=== PATIENT | male | born 1960 | race Caucasian/White ===

== ENCOUNTER → 2016-11-24 | Day surgery (SDC) | payer OTHER ==
[2016-11-18 11:04] VITALS: BMI 37.0
[~2016-11-24] VITALS: Ht 180.3 cm; Wt 120.9 kg
[~2016-11-24] MED LIST: GEMF600T3 PO; LIDOCAINE HCL 2% 2 ML VIAL (20MG/ML) ONE; LISI20TA55 PO; NAPR1TAB9 PO; POTA1TAB97 PO; PROPOFOL IV EMULSION 10 MG/ML 20 ML VIAL IV ONE
[2016-11-24 08:43] VITALS: Ht 180.3 cm; Wt 120.9 kg
--- NOTE | 2016-11-24 09:24 | Endo History and Physical ---
History & Physical Date of Service: Nov 24, 2016. Chief Complaint: Abd epigastric pain/possible varices Referring Physician: MOLLY Sheffield History of Present Illness cirrhosis Past Surgical History Hx Cardiac Surgery: No Hx Internal Defibrillator: No Hx Pacemaker: No Hx Abdominal Surgery: No Hx of Implantable Prosthesis: No Hx Post-Op Nausea and Vomiting: Yes (X 1) Hx Cancer Surgery: No Hx Thoracic Surgery: Yes (SCOPE FOR BIOPSY TO DX SARCOIDOSIS) Hx Orthopedic: Yes (L KNEE SCOPE) Hx Urinary Tract Surgery: No Family History Colon CA Social History Smoking Status: Never Smoker Hx Substance Use: No Hx Alcohol Use: No (NO ALCOHOL PAST 1 YR) Allergies Coded Allergies: Shellfish Allergy (Verified Allergy, Unknown, ANAPHYLAXIS, 11/18/16) Aspirin (Verified Adverse Reaction, Mild, EPISTAXIS, 11/18/16) Current Medications Reported Home Medications Medications Dose Route/Sig Max Daily Dose Days Date Category K-Tab (Potassium Chloride) 20 Meq Tab 10 Meq PO QAM 02/24/16 Reported Aleve (Naproxen) 220 Mg Tab 220 Mg PO BID PRN 02/04/16 Reported Lopid (Gemfibrozil) 600 Mg Tab 600 Mg PO BID 09/08/11 Reported Prinzide 20-25MG (HCTZ/Lisinopril) Tab 1 Tab PO QAM 05/04/10 Reported Vital Signs Weight (Kilograms): 120.91 Height (Feet): 5 Height (Inches): 11 Date Time Temp Pulse Resp B/P (MAP) Pulse Ox O2 Delivery O2 Flow Rate FiO2 11/24/16 08:48 37 69 18 146/84 (104) 96 Room Air Physical Exam General Appearance: WD/WN, no apparent distress Assessment and Plan EGD today
--- NOTE | 2016-11-24 09:41 | Discharge Instructions ---
Endoscopy Patient Instructions Date / Procedure(s) Performed Nov 24, 2016. EGD Allergy Information Coded Allergies: Shellfish Allergy (Verified Allergy, Unknown, ANAPHYLAXIS, 11/18/16) Aspirin (Verified Adverse Reaction, Mild, EPISTAXIS, 11/18/16) Discharge Date / Findings Nov 24, 2016. normal EGD Medication Instructions Restart Stopped Medication(s): OK to continue all home medications as above Provider Instructions Activity Restrictions - No exercising or heavy lifting for 24 hours. - Do not drink alcohol the day of the procedure. - Do not drive a car or operate machinery until the day after the procedure. - Do not make any important decisions or sign important papers in 24 hours after the procedure. Following Day: - Return to full activity which may include returning to work/school. Diet Start your diet with liquids and light foods (jello, soup, juice, toast). Then eat your usual diet if not nauseated. Treatment For Common After Affects For mild abdominal pain, bloating, or excessive gas: - Rest - Eat lightly - Lie on right side Follow-Up Information Follow-up with MOLLY Sheffield as scheduled Anesthesia Information What You Should Know You have had a procedure that required some medicine to reduce anxiety and discomfort. This treatment is called moderate sedation. After receiving the treatment, you may be sleepy, but you will be able to breathe on your own. The effects of the treatment may last for several hours. Follow these instructions along with Activity/Diet recommendations noted above: * Do NOT do anything where dizziness or clumsiness would be dangerous. * Rest quietly at home today, then you can be up and about tomorrow. * Have a responsible person stay with you the rest of today. * You may have had an I.V. today. If so, you may take the dressing off later today. Recommendations Call your doctor if: * Trouble breathing * Continuous vomiting for more than 24 hours * Temperature above 101 degrees * Severe abdominal pain or bloating * Pain not relieved by pain medicine ordered * There is increased drainage or redness from any incision * A large amount of rectal bleeding greater than 2-3 tablespoons. (If you had a polyp/s removed or have hemorrhoids, a small amount of blood - from the rectum is to be expected.) * You have any unanswered questions or concerns. IN THE EVENT OF A SERIOUS EMERGENCY, GO TO THE NEAREST EMERGENCY ROOM Your discharge instructions were prepared by provider Kathe Delgado. Patient Instructions Signature [address] Patient (or Guardian) Signature/Date: I have read and understand the instructions given to me by my caregivers. Caregiver/RN/Doctor Signature/Date: The above-named patient and/or guardian has received patient instructions on this date. + Original Patient Signature Page (only) stays with chart. Please make copy for patient.
--- NOTE | 2016-11-24 09:41 | GI REPORT ---
Procedure Date: 11/24/2016 9:21 AM Procedure: Upper GI endoscopy Indications: Generalized abdominal pain, Cirrhosis rule out esophageal varices Medicines: Propofol per Anesthesia Complications: No immediate complications. Estimated blood loss: None. Estimated Blood Loss: Estimated blood loss: none. Procedure: Pre-Anesthesia Assessment: - Prior to the procedure, a History and Physical was performed, and patient medications, allergies and sensitivities were reviewed. The patient's tolerance of previous anesthesia was reviewed. - The risks and benefits of the procedure and the sedation options and risks were discussed with the patient. All questions were answered and informed consent was obtained. - Patient identification and proposed procedure were verified prior to the procedure by the physician and the nurse. The procedure was verified in the pre-procedure area in the procedure room. - Mental Status Examination: alert and oriented. Airway Examination: normal oropharyngeal airway and neck mobility. Respiratory Examination: clear to auscultation. CV Examination: normal. Abdominal Examination: bowel sounds present, abdomen soft and non-tender, no masses or organomegaly noted. - ASA Grade Assessment: III - A patient with severe systemic disease. After obtaining informed consent, the endoscope was passed under direct vision. Throughout the procedure, the patient's blood pressure, pulse, and oxygen saturations were monitored continuously. The scope was introduced through the mouth, and advanced to the second part of duodenum. The upper GI endoscopy was accomplished without difficulty. The patient tolerated the procedure well. Findings: The esophagus was normal. The stomach was normal. The examined duodenum was normal. Impression: - Normal esophagus. - Normal stomach. - Normal examined duodenum. - No specimens collected. Recommendation: - Return to primary care physician as previously scheduled. - Discharge patient to home. Kathe Delgado D.O. Kathe Delgado, 11/24/2016 9:40:37 AM This report has been signed electronically. Note Initiated On: 11/24/2016 9:21 AM I attest to the content of the Intraoperative Record and orders documented therein, exceptions below
--- NOTE | 2016-11-24 10:12 | Anesthesiology Progress Note ---
Anesthesia Post Op Note Date & Time Nov 24, 2016 at 10:12 Vital Signs Pain Intensity: 0 Vital Signs Past 12 Hours Date Time Temp Pulse Resp B/P (MAP) Pulse Ox O2 Delivery O2 Flow Rate FiO2 11/24/16 10:01 78 18 121/85 (97) 97 Room Air 11/24/16 09:46 69 18 137/69 (91) 99 Room Air 11/24/16 08:48 37 69 18 146/84 (104) 96 Room Air Notes Mental Status: alert / awake / arousable, participated in evaluation Pt Amnestic to Procedure: Yes Nausea / Vomiting: adequately controlled Pain: adequately controlled Airway Patency, RR, SpO2: stable & adequate BP & HR: stable & adequate Hydration State: stable & adequate Anesthetic Complications: no major complications apparent
[2016-11-24 10:17] VITALS: BP 122/70; PULSE 71; O2SAT 97
== END | disposition home or self-care (01) ==
LOC: C.GI 08:25
PROVIDERS: ATTEND Internal Medicine
DX: R10.84 Generalized abdominal pain (principal); K74.60 Unspecified cirrhosis of liver; Z80.0 Family history of malignant neoplasm of digestive organs; Z79.899 Other long term (current) drug therapy

== ENCOUNTER 2017-06-28 04:22 | Emergency (ER) | payer OTHER ==
[~2017-06-28] VITALS: Ht 180.3 cm; Wt 120.6 kg
[~2017-06-28 04:22] MED LIST changes: -LIDOCAINE HCL 2% 2 ML VIAL (20MG/ML) ONE; -PROPOFOL IV EMULSION 10 MG/ML 20 ML VIAL IV ONE
[2017-06-28 04:28] VITALS: TEMP 36.7; Ht 180.3 cm; Wt 120.6 kg
[2017-06-28] MEDS ORDERED: LIDOCAINE HCL 2% VISC SOLN 20 ML UDC MT STA (04:40)
[2017-06-28] MEDS ORDERED: ALBUTEROL HFA 8 GM INHALER INH STA (04:44)
[2017-06-28] MEDS ORDERED: ALBUT/IPRATROP 3MG/0.5MG NEB 3 ML VIAL INH STA (04:44)
[2017-06-28] MEDS ORDERED: DEXAMETHASONE **PF** INJ 10 MG/ML VIAL PO ONE (04:45)
[2017-06-28] MEDS ORDERED: [UNRECOGNIZED DRUG - CODE] PO (05:02)
[2017-06-28] MEDS ORDERED: THROLOZ PO (05:02)
[2017-06-28 05:13] LABS: INFLUENZA B ANTIGEN Neg for Influ B (NEG)
--- NOTE | 2017-06-28 05:56 | EMERGENCY ROOM VISIT NOTE ---
History First contact with patient: 04:31 Chief Complaint: COUGH Stated Complaint: COUGH,SINUS Nursing Triage Summary: Patient reports that he has had cough since tuesday, lost his voice and has been feeling achy. Patient notes a sore throat. Patient has been taking OTC medications with no relief. Around someone with positive flu diagnosis. History of Present Illness The patient is a 57 year old male who presents to the Emergency Room with complaints of cough, congestion, sore throat, laryngitis for the past week. Patient denies chest pain, dyspnea, fever, productive cough, abdominal pain, neck stiffness, earache, sinus pain or congestion. He is tolerating p.o. fluids and food. Review of Systems An 10 system review of systems was completed with positives and pertinent negatives listed in the HPI. Past Medical/Surgical History Medical Problems: (1) Hypertension Family History Diabetes mellitus FHx: cancer Hypertension Social History Smoking Status: Never Smoker Alcohol Use: occasionally Occupation Status: employed Current/Historical Medications Scheduled Gemfibrozil (Lopid), 600 MG PO BID Lisinopril/Hctz (Prinzide 20-25MG), 1 TAB PO QAM Potassium Chloride (K-Tab), 10 MEQ PO QAM Scheduled PRN Naproxen (Aleve), 220 MG PO BID PRN for Pain [id number] W/ APAP (Robitussin Severe Mul... 9-91-192-325 mg/10Ml), 1 DOSE PO DIRECTED PRN for COUGH/COLD Throat Lozenges (Cough Drops Menthol), 1 JOSE DE JESUS PO DIRECTED PRN for Cough Physical Exam Vital Signs Date Time Temp Pulse Resp B/P (MAP) Pulse Ox O2 Delivery O2 Flow Rate FiO2 06/28/17 05:22 76 20 135/86 98 06/28/17 04:28 36.7 82 18 179/101 96 Room Air Physical Exam VITALS: Vitals are noted on the nurse's note and reviewed by myself. Vital signs hypertensive. GENERAL: Pleasant male with a hoarse voice, in no acute distress, nondiaphoretic , well-developed well-nourished. SKIN: The skin was without rashes, erythema, edema, or bruising. There is no tenting of the skin. Capillary reflex less than 2 seconds. HEAD: Normocephalic atraumatic. EARS: External auditory canals clear, tympanic membranes pearly palomares without erythema or effusion bilaterally. EYES: Pupils equal round and reactive to light and accommodation. Conjunctivae without injection, sclerae without icterus. Extraocular movements intact. NOSE: Patent, turbinates without inflammation or discharge. No sinus tenderness. MOUTH: Mucous membranes moist. Pharynx without erythema or exudate. Uvula midline. Airway patent. Tongue does not deviate. NECK: Supple without nuchal rigidity. No lymphadenopathy. No thyromegaly. Cervical spine is nontender. No JVD. HEART: Regular rate and rhythm without murmurs gallops or rubs. LUNGS: Mild diffuse end expiratory wheezes, without rales or rhonchi. No dullness to percussion. No retractions or accessory muscle use. ABDOMEN: Positive bowel sounds x 4. Normal tympanic percussion. Soft, nontender, without masses or organomegaly. Escalante sign negative. No guarding or rebound tenderness. MUSCULOSKELETAL: No muscle atrophy, erythema, or edema noted. NEURO: Patient was alert and oriented to person place and time. Normal sensation to light and sharp touch.No focal neurological deficits. Medical Decision & Procedures Laboratory Results Test 06/28/17 04:30 Influenza Type A Antigen Neg for Influ A (NEG) Influenza Type B Antigen Neg for Influ B (NEG) Medications Administered Medications (Trade) Dose Ordered Sig/Alba Route Start Time Stop Time Status Last Admin Dose Admin Dexamethasone Sodium Phosphate (Dexamethasone Inj Pf) 10 mg NOW ONCE PO 06/28/17 04:45 06/28/17 04:46 DC 06/28/17 05:06 10 MG Lidocaine HCl (Viscous Lidocaine 2% Soln) 10 ml NOW STAT MT 06/28/17 04:40 06/28/17 04:42 DC 06/28/17 05:05 10 ML Albuterol/ Ipratropium (Duoneb) 3 ml NOW STAT INH 06/28/17 04:44 06/28/17 04:45 DC 06/28/17 05:05 3 ML Albuterol (Ventolin Hfa Inhaler) 2 puffs ONE STAT INH 06/28/17 04:44 06/28/17 04:45 DC 06/28/17 05:05 2 PUFFS ED Course Prior records/ancillary studies reviewed. Triage Nursing notes reviewed. The patient's history was concerning for a cough, laryngitis and sore throat. Differential diagnosis: Etiologies such as viral syndrome, tonsillitis, streptococcal pharyngitis, mononucleosis, peritonsillar abscess, retropharyngeal abscess, otitis, pneumonia , influenza, as well as others were entertained. ER treatment provided: Nebulizer, viscous lidocaine, Decadron On reassessment the patient felt better. Diagnostics interpreted by me: The labs revealed negative strep test and flu Imaging studies: Chest x-ray with no acute consolidation, pneumothorax or free air per my interpretation This appears to be consistent with bronchitis with laryngitis. Patient's been sick for a week. I did opt to put him on steroids and Zithromax.. No obvious signs of pneumonia on x-ray. He felt much better after being medicated as above. He is not hypoxic. He was advised to rest, stay well hydrated and take medications as directed. He was advised to follow-up family can a few days here in the ER sooner for high fevers, lethargy, difficulty breathing, worsening sign or symptoms or as needed. He was advised to monitor his blood pressure. By the evaluation outlined above emergent etiologies such as peritonsillar abscess, retropharyngeal abscess, otitis, pneumonia, meningitis, urinary tract infection, sepsis, bacteremia, as well as others were deemed relatively unlikely. The pt informed about the findings as listed above. All questions were answered and pleased with the treatment. Return instructions were outlined and the patient was discharged in stable condition. Outpatient prescription management: Prednisone, Zithromax Referral: The patient was referred back to their primary care physician for follow-up in 2 to 3 days for a recheck of the current condition. Case reviewed with my attending Medical Decision as above Medication Reconcilliation Current Medication List: was personally reviewed by me Blood Pressure Screening Patient's blood pressure: Elevated blood pressure Blood pressure disposition: Referred to PCP Impression Primary Impression: Acute bronchitis Additional Impression: Laryngitis Departure Information Dispostion Home / Self-Care Condition GOOD Referrals Pk Loya M.D. (PCP) Patient Instructions My [facility] Additional Instructions Albuterol Inhaler: Take 2 puffs four times daily for five days, then as needed. Prednisone 50mg: Once daily until the prescription is finished. It is best to take this earlier in the day as some patients note occasional difficulty falling asleep when taken in the late evening. Azithromycin(Zithromax) 250mg: Take one a day for 4 additional days. All antibiotics can cause diarrhea. If this occurs and you feel worse or it does not resolve in 1-2 days follow up with your doctor or return to the Emergency Department as this could be signs of serious underlying problems. Any medication can cause an allergic reaction, stop the pills immediately and return to the ER for rash, hives, breathing difficulties, or swelling. Acetaminophen(Tylenol) may be used for fever or pain. Use 1000mg every six hours as needed. Avoid using more than 3000mg in a 24 hour period. (AND/OR) Ibuprofen(Motrin, Advil) may be used for fever or pain. Use 600mg every six hours as needed. Take with food. Avoid using more than 2400mg in a 24 hour period. Do not use 2400mg per day for more than three consecutive days without physician direction. Prolonged inappropriate use can lead to stomach upset or ulcers. Tamiflu 75 m tablet twice a day for 5 days.Any medication can cause an allergic reaction, stop the pills immediately and return to the ER for rash, hives, breathing difficulties, or swelling. Afrin nasal spray: 2-3 sprays to each nostril twice daily as needed for congestion. Do not use for more than 3-4 days because it can lead to worsening rebound congestion. Pseudoephedrine(Sudaphed): 30-60mg every 6 hours as needed for nasal congestion. Do not take this with other stimulant products or supplements. Rest and drink plenty of fluids. Controlling your fever with Tylenol and Ibuprofen as above will make you feel better. Wash your hands after nose blowing, sneezing, or coughing. Most germs are spread through contact, therefore improper hygiene may result in your close contacts and loved ones becoming ill just like you. Continue current medications. Return to the ER for severe headache, neck stiffness, chest pain, difficulty breathing, fevers, vomiting, worsening of your condition, or as needed. Follow up with your primary physician this week for a recheck of your current condition. Problem Qualifiers Primary Impression: Acute bronchitis Bronchitis organism: unspecified organism Qualified Codes: J20.9 - Acute bronchitis, unspecified
[2017-06-28] MEDS ORDERED: AZITHROMYCIN 250 MG TAB PO STA (06:00)
[2017-06-28] MEDS ORDERED: AZIT250T PO (06:02)
[2017-06-28] MEDS ORDERED: PRED50TA PO (06:02)
[2017-06-28 06:07] VITALS: BP 134/92; PULSE 76; O2SAT 95
--- NOTE | 2017-06-28 07:32 | DIAGNOSTIC IMAGING REPORT ---
CHEST 2 VIEWS ROUTINE CLINICAL HISTORY: cough/fever cough COMPARISON STUDY: No previous studies for comparison. FINDINGS: The bones soft tissues and hemidiaphragms are normal. The cardiomediastinal silhouette is normal. The lungs are clear. The pulmonary vasculature is normal. IMPRESSION: Negative chest. The above report was generated using voice recognition software. It may contain grammatical, syntax or spelling errors. Electronically signed by: Jonathan Barrera M.D. 06/28/2017 7:31 AM Dictated Date/Time: 06/28/2017 7:20 AM
== END 2017-06-28 06:07 | disposition home or self-care (01) ==
LOC: C.EDB 04:24 → C.EDA 06:07
DX: J20.9 Acute bronchitis, unspecified (principal); J04.0 Acute laryngitis

== ENCOUNTER 2019-06-28 08:53 | Inpatient (IN) ==
[2019-06-28] MEDS ORDERED: dilTIAZem HCl 5 MG/ML 5 ML VIAL IV STA (09:18)
[2019-06-28] MEDS ORDERED: dilTIAZem HCL 125 MG in DEXTROSE 5% 100 ML IV STA (09:18)
[2019-06-28] MEDS ORDERED: SODIUM CHLORIDE 0.9% 1000ML 500 ML IV ONE (09:18)
[2019-06-28 09:29] LABS: Basophils # (auto) 0.05 K/uL (0-0.2); Basophils % (auto) 1.2 %; Eosinophils # (auto) 0.07 K/uL (0-0.5); Eosinophils % (auto) 1.7 %; Hematocrit (blood only) 43.6 % (42-52); Hemoglobin 16.3 g/dL (14.0-18.0); Immature Granulocytes # (auto) 0.01 K/uL (0.00-0.02); Immature Granulocytes % (auto) 0.2 %; Lymphocytes # (auto) 0.75 K/uL (1.2-3.4); Lymphocytes % (auto) 18.6 %; Mean Corpuscular Hemoglobin 30.6 pg (25-34); Mean Corpuscular Hgb Conc 37.4 g/dL (32-36); Mean Platelet Volume 9.7 fL (7.4-10.4); Monocytes # (auto) 0.41 K/uL (0.11-0.59); Monocytes % (auto) 10.2 %; Neutrophils # (auto) 2.74 K/uL (1.4-6.5); Neutrophils % (auto) 68.1 %; Platelet Count 122 K/uL (130-400); RDW Coefficient of Variation 13.5 % (11.5-14.5); RDW Standard Deviation 40.1 fL (36.4-46.3); Red Blood Count 5.32 M/uL (4.7-6.1); White Blood Count 4.03 K/uL (4.8-10.8)
[2019-06-28 09:41] LABS: Partial Thromboplastin Ratio 0.9; Partial Thromboplastin Time 24.2 Seconds (21.0-31.0); Prothrombin Time 10.4 Seconds (9.0-12.0)
[2019-06-28 09:44] LABS: Albumin Level 4.1 gm/dl (3.4-5.0); BUN Creatinine Ratio 12.5 (10-20); Calcium 9.6 mg/dl (8.5-10.1); Creatinine Clr Calc Pharmacy 95.9 ml/min; Est GFR (African American) 84.4; Est GFR (Non-African American) 72.8; Magnesium 2.1 mg/dl (1.8-2.4); Potassium 3.6 mmol/L (3.5-5.1)
[2019-06-28 09:55] LABS: Bilirubin,Total 0.7 mg/dl (0.2-1); Globulin 4.1 gm/dl (2.5-4.0); Thyroid Stimulating Hormone 2.89 uIu/ml (0.300-4.500); Total Protein 8.2 gm/dl (6.4-8.2); Troponin I 0.017 ng/ml (0-0.045)
--- NOTE | 2019-06-28 09:59 | XRay Report ---
XR chest 1V portable CLINICAL HISTORY: 59 years-old Male presenting with SOB. TECHNIQUE: Portable upright AP view of the chest was obtained. COMPARISON: 04/22/2018. FINDINGS: Atherosclerosis of the aortic arch. Cardiac silhouette borderline enlarged. Mild pulmonary vascular p rominence. No focal opacity. No large effusion or pneumothorax. Degenerative changes of the thoracic spine. IMPRESSION: 1. Borderline cardiomegaly and mild volume overload suggested. No other convincing evidence of acute cardiopulmonary disease. ACT 112: Negative or not required by law. Electronically signed by: Pa Mckoy M.D. 06/28/2019 9:57 AM
--- NOTE | 2019-06-28 12:03 | History & Physical Report ---
Date of Service June 28, 2019 Assessment & Plan (1) Precordial chest pain: (2) New onset atrial fibrillation: This is a 59-year-old male who has significant PMH of T2DM, HTN, HLD, cirrhosis, history of alcohol abuse, essential tremor, migraine, PTSD, HANNA on CPAP who presents to ED secondary to chest pain, shortness of breath, palpitations and diaphoresis proximally 45 minutes prior to arrival. In ED patient was found to be atrial fibrillation with rapid ventricular rate. He otherwise remained hemodynamically stable. He received IV diltiazem bolus and initiated on diltiazem drip which improved heart rates. During my evaluation he was going in and out of atrial fibrillation. Lab work notable for thrombocytopenia with platelet count 122, K3.6, BUN 14, creatinine 1.11, glucose 238, mag 2.1, troponin 0.017, TSH WNL. Chest x-ray revealed cardiomegaly with mild volume overload. [id number] 2; Hasbled 2 New onset atrial fibrillation Pt hx has me concerned for underlying CAD given exertional CP and SOB sx Continue IV diltiazem gtt Feel pt is poor candidate for IV heparin or systemic anticoagulation at this time secondary to patient history of severe epistaxis with ASA and ibuprofen, hx of cirrhosis, PLT 122 but will defer to cardiology He did have recent EGD which showed portal HTN gastropathy w/o esophageal varices Obtain echocardiogram Trend cardiac enzymes (3) Diabetes: A1c 6.1 06/12/2019 Hold metformin BSG on arrival to 238 Lantus/NovoLog per protocol (4) Cirrhosis of liver: Follows [facility] Compensated LFTs WNL No edema or hepatic encephalopathy Continue alcohol cessation recommend weight loss (5) Thrombocytopenia: Platelet count 122 No current signs of active bleeding Known history of cirrhosis (6) Hypertension: Per patient blood pressure uncontrolled in outpatient setting. Currently on HCTZ, losartan and propranolol (also for essential tremor) Monitor closely, titrate losartan if needed (7) Sleep apnea: CPAP at bedtime (8) Hyperlipidemia: Not on Statin therapy Total cholesterol 144, HDL 27, LDL 87, triglyceride 213, done on 06/12/2019 Recommend adding fish oil at discharge (9) Essential tremor: continue propranolol (10) History of ETOH abuse: Pt denies ETOH in 4-5 years however friend at bedside is concerned this may be inaccurate and he may still be drinking place on AWSS protocol prn (11) DVT prophylaxis: SCD Disposition: admit to PCU Follow up: PCP Dr. Loya upon discharge along with appropriate cardiology follow up Pt was seen and examined in collaboration with Dr. Telles, please see addendum History of Present Illness Chief Complaint: Chest pain, shortness breath, palpitations, diaphoresis 45 minutes prior to arrival. Primary Care Provider: Pk Loya MD This is a 59-year-old male who has significant PMH of T2DM, HTN, HLD, cirrhosis, history of alcohol abuse, essential tremor, migraine, PTSD, HANNA on CPAP who presents to ED secondary to chest pain, shortness of breath, palpitations and diaphoresis proximally 45 minutes prior to arrival. Patient works for [employer] and was working on campus. He developed acute onset substernal chest pain, described as dull ache, radiated to right chest wall, associated diaphoresis, shortness of breath, palpitations "feeling like my heart is beating on my chest," and dizziness. He states chest pain lasted approximately 5 minutes before relieving. Chest pain would come and go with improvement via rest. Exertion made symptoms worse. He states he has had similar symptoms off and on for many years. "I have seen many doctors who told me there was nothing wrong." He elicits he gets significantly short of breath with minimal exertion as well as exertional chest pain. His work is fairly l [employer] and states he gets exertional symptoms daily. He admits approximately 3 to 4 months ago at [place] [facility] he had a stress test and only completed 40% of it due to being extremely SOB, but was told his heart was fine. SOB sx could not be explained. He dose follow pulmonary at [place] on yearly basis due to hx of sarcoidosis. He denies any recent illness, f/c/s, syncope, n/v/d, abdominal pain, change in bowel or urinary habits. Denies hx of GI or brain bleed; however does have hx of severe epistaxis with ASA, ibuprofen and even sneezing. He denies prior hx of CAD or afib. He does follow [facility] due to known hx of cirrhosis secondary to hepatic steatosis and alcohol abuse. He admits to being absent from alcohol for 4 to 5 years. However, friend who is at bedside stop me outside of room and states he he is not sure how accurate this was as he heard he had a drink 5 days ago. In ED patient was found to be atrial fibrillation with rapid ventricular rate. He otherwise remained hemodynamically stable. He received IV diltiazem bolus and initiated on diltiazem drip which improved heart rates. During my evaluation he was going in and out of atrial fibrillation. Lab work notable for thrombocytopenia with platelet count 122, K3.6, BUN 14, creatinine 1.11, glucose 238, mag 2.1, troponin 0.017, TSH WNL. Chest x-ray revealed cardiomegaly with mild volume overload. Allergies Allergy/AdvReac Type Severity Reaction Status Date / Time Iodinated Contrast Media Allergy Intermediate Hives Unverified 06/28/19 12:42 shellfish derived AdvReac Severe "SEVERE Verified 06/28/19 12:42 VOMITING" acetaminophen [From Tylenol] AdvReac Intermediate nose bleeds Unverified 06/28/19 10:43 ibuprofen AdvReac Intermediate nose bleeds Unverified 06/28/19 10:43 aspirin AdvReac Mild EPISTAXIS Verified 06/28/19 10:37 Home Medications Home Medications Medication Instructions Recorded Confirmed Type potassium chloride [K-Tab] 20 meq PO QAM 04/22/18 06/28/19 History fluoxetine 20 mg PO HS 02/01/19 06/28/19 History metformin 500 mg PO BID 02/01/19 06/28/19 History cholecalciferol (vitamin D3) 1,000 unit PO QAM 06/28/19 06/28/19 History [Vitamin D3] hydrochlorothiazide 25 mg PO QAM 06/28/19 06/28/19 History losartan 50 mg PO QAM 06/28/19 06/28/19 History multivitamin 1 tab PO HS 06/28/19 06/28/19 History propranolol 20 mg PO BID 06/28/19 06/28/19 History Past Med/Surg History Medical History (Updated 06/28/19 @ 12:41 by Yen Covington PA-C) Anxiety Cirrhosis of liver ALCOHOLIC PER PT Depression Diabetes ORAL MEDS Essential tremor History of ETOH abuse Hyperlipidemia Hypertension Migraine HX-F/U NEUROLOGIST [place] Post traumatic stress disorder Sleep apnea MILD-CPAP HS Surgical History (Updated 06/28/19 @ 12:15 by Yen Covington PA-C) History of colonoscopy History of esophagogastroduodenoscopy (EGD) 02/06/2019 revealed mild portal hypertensive gastropathy, evidence of varices History of ethmoidectomy Family History Mother Family history of diabetes mellitus Father , in 2007 Family hx of colon cancer Social History (Updated 06/28/19 @ 12:17 by Yen Covington PA-C) Preferred Language: Tajik Communication Ability: Effective 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 Beliefs That Will Affect Care: None Current Living Situation: Alone Other Information That Helps Us Care for You: No Feels Safe at Home: Yes Safety Concerns: Feels Safe At This Time Smoking Status: Never smoker Do You Dip or Chew Tobacco: No ; Second Hand Exposure: No ; Tobacco Cessation Education Requested by Patient: No Hx Alcohol Use: Yes Alcohol type: hard liquor Alcohol Intake Frequency Comment: States abstinent for 4-5 years Hx Substance Use: No Review of Systems Review of Systems: All systems reviewed & are unremarkable except as noted in HPI & below Physical Exam Physical Exam: Constitutional: WD/WN, Morbidly obese M, vitals as above, NAD, sitting up in bed, pleasant, conversing easily Head: Normocephalic, Atraumatic, + erythematous facial flushing Eyes: PERRL, conjunctivae normal, anicteric sclerae ENMT: external ear and nose normal, oropharynx normal Neck: trachea midline, no thyromegaly normal visual inspection Respiratory: normal respiratory effort, lungs clear to auscultation, no wheeze, rales, rhonchi. Normal insp/exp effort, no accessory muscle use Cardiovascular: IRR/IRR, no murmur, no edema Vessels: no JVD or carotid bruit Chest: normal inspection of chest Abdomen: obese abd, normal bowel sounds, soft, mild tenderness to palpation to RUQ, +hepatomegaly Musculoskeletal: no cyanosis or clubbing, extremities motor strength 5/5 Skin: no rashes, warm and dry normal turgor Neurologic: PERRL, EOMI, accommodation nl, no face palsy, no dysarthria CN's II-XI intact bilaterally and moves all extremities Psychiatric: A+Ox3, euthymic affect Lymphatic: no cervical or axillary lymphadenopathy : deferred Results & Data Vital Signs (Past 12 Hours) Vital Signs Temp Pulse Resp BP Pulse Ox 06/28/19 11:00 119 H 16 127/100 97 06/28/19 10:45 112 H 14 141/89 H 95 06/28/19 10:30 101 H 17 138/100 97 06/28/19 10:15 91 H 21 139/105 H 96 06/28/19 10:07 96 06/28/19 10:00 101 H 16 153/93 H 06/28/19 09:49 78 17 174/92 H 06/28/19 09:41 83 18 144/97 H 06/28/19 09:37 100 H 20 143/100 H 06/28/19 09:31 141 H 23 138/98 06/28/19 09:30 123 H 18 06/28/19 09:00 36.5 C 123 H 24 114/87 99 Laboratory Results Short CBC 06/28/19 Range/Units 09:10 WBC 4.03 L (4.8-10.8) K/uL Hgb 16.3 (14.0-18.0) g/dL Hct 43.6 (42-52) % Plt Count 122 L (130-400) K/uL BMP 06/28/19 09:10 Sodium 137 Potassium 3.6 Chloride 105 Carbon Dioxide 26 BUN 14 Creatinine 1.11 Glucose 238 H Calcium 9.6 Cardiac Enzymes 06/28/19 Range/Units 09:10 Troponin I 0.017 (0-0.045) ng/ml Liver Function 06/28/19 Range/Units 09:10 Total Bilirubin 0.7 (0.2-1) mg/dl AST 32 (15-37) U/L ALT 55 (12-78) U/L Alkaline Phosphatase 161 H (45-117) U/L Albumin 4.1 (3.4-5.0) gm/dl Diagnostic Findings CXR: IMPRESSION: 1. Borderline cardiomegaly and mild volume overload suggested. No other convincing evidence of acute cardiopulmonary disease. Medications Administered Discontinued Medications Diltiazem HCl (Cardizem) 15 mg IV NOW STA Stop: 06/28/19 09:19 Last Admin: 06/28/19 09:33 Dose: 15 mg Documented by: [id number] Cosigned by: [id number] Sodium Chloride (Nss 1000ml) 500 mls @ 999 mls/hr IV .Q31M ONE Stop: 06/28/19 09:48 Last Infusion: 06/28/19 10:04 Dose: 0 mls/hr Documented by: [id number] Admin: 06/28/19 09:33 Dose: 999 mls/hr Documented by: [id number] Diltiazem HCl 125 mg/ Dextrose 125 mls @ 0 mls/hr IV .Q0M STA; Protocol Stop: 06/28/19 09:19 Last Titration: 06/28/19 10:54 Dose: 5 mg/hr, 5 mls/hr Documented by: [id number] Cosigned by: [id number] Admin: 06/28/19 09:32 Dose: 5 mg/hr, 5 mls/hr Documented by: [id number] Cosigned by: [id number] ECG Rate (beats per minute): 121 Rhythm: atrial fibrillation Code Status & VTE Plan Code Status Full Code VTE Prophylaxis Plan VTE Prophylaxis will be ordered: No Reason for no VTE drug order: Contraindicated Supervising Physician Co-Signing Physician Notes I saw this patient with the physician assistant editor, I participated in the history, physical, review of systems, and physical exam. I reviewed the medications with the patient and the physician assistant editor and helped reconcile the medications. I helped take a detailed family and social history as well. I formulated the assessment and plan personally with the physician assistant editor and went over it with the patient. Physical Exam Gen-AAO x 3, NAD, Afebrile, Obese Head-NCAT, EOMI, PERRLA, Anicteric Sclera, No Posterior Pharyngeal Erythema Neck-Supple, No JVD, No Thyromegaly, No Masses, No LAD, No Bruits Lungs-Clear to Auscultation Bilaterally, No Rales, No Rhonchi, No Wheezing, No Crepitus Chest-Irreg/Irreg, No S4, +S1, +S2, No S3, No Murmurs, No Rubs, No Gallops, + Ectopy Abdomen-Soft, Bowel Sounds Present, Non Tender, Non Distended, No Hepatomegaly, No Splenomegaly, No Palpable Masses, No Rebound, No Rigidity, No Guarding Musculoskeletal-Full Range of Motion Bilaterally, No CVAT Extremities-No Cyanosis, No Clubbing, No Edema Nuero-Cranial Nerves II-XII grossly intact, Motor WNL, DTRs WNL, Strength WNL, Non Focal Psych-Normal Mood
[2019-06-28] MEDS ORDERED: ACETAMINOPHEN 325 MG TAB PO PRN (12:32)
[2019-06-28] MEDS ORDERED: DEXTROSE 50% 50 ML SYRINGE IV PRN (12:32)
[2019-06-28] MEDS ORDERED: dilTIAZem HCL 125 MG in DEXTROSE 5% 100 ML IV SCH (12:32)
[2019-06-28] MEDS ORDERED: GLUCOSE 40% GEL 15 GM TUBE PO PRN (12:32)
[2019-06-28] MEDS ORDERED: CARBOHYDRATES FOR HYPOGLYCEMIA PO PRN (12:32)
[2019-06-28] MEDS ORDERED: POLYETHYLENE (MIRALAX) 17 GM PACK PO PRN (12:32)
[2019-06-28] MEDS ORDERED: MAGNESIUM HYDROXIDE SUSP 30 ML UDC PO PRN (12:32)
[2019-06-28] MEDS ORDERED: ONDANSETRON INJ 2 MG/ML 2 ML VIAL IV PRN (12:32)
[2019-06-28] MEDS ORDERED: ALUMINUM/MAGNESIUM SUSP 30 ML UDC PO PRN (12:32)
[2019-06-28] MEDS ORDERED: GLUCAGON FOR INJ 1 MG VIAL SQ PRN (12:32)
[2019-06-28] MEDS ORDERED: GLUCOSE 10 TABS/TUBE PO PRN (12:32)
[2019-06-28] MEDS ORDERED: LORazepam 1 MG TAB PO PRN (12:44)
[2019-06-28] MEDS ORDERED: POTASSIUM CHLORIDE 20 MEQ TABCR PO ONE (13:00)
--- NOTE | 2019-06-28 13:25 | Emergency Department Note ---
Entered by Lexii Gardner acting as a scribe for Jose Horta MD History of Present Illness General Chief complaint: Chest Pain Stated complaint: CHEST PAIN, HIGH BP Time Seen by Provider: 06/28/19 09:12 Source: patient History of Present Illness Onset (ago): hour(s) (0700 this morning) Location: chest Radiation: non-radiation Severity: similar to prior episodes Pain Consistency: + other (sudden) Maximum Pain Intensity: 5 Quality: + other (chest pain) Associated symptoms: + chest pain, + diaphoresis and + shortness of breath; no fever/chills and no syncope Treatments prior to arrival: none The patient is a 59 year old male presenting to the Emergency Department complaining of sudden chest pain starting at 0700 this morning. 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 He states that he then became diaphoretic and is still diaphoretic. He explains that his chest pain is no longer as pronounced as it was earlier this morning but that he is now short of breath. 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 He adds that he has been taking Losartan but started Propranolol about 2 month ago. The patient reports that since staring Propranolol he has been experiencing episodes of diaphoresis. He states that he has experienced these symptoms before. He explains that he has had a stress test in the past. He notes that he follows with Dr. Brianna Jett PCP. He adds that he took no medications for his symptoms PATIENT REGISTRATION SPECIALIST. The patient denies syncope, fevers, chills and history of AL. Home Medications Home Medications Medication Instructions Recorded Confirmed Type potassium chloride [K-Tab] 20 meq PO QAM 04/22/18 06/28/19 History fluoxetine 20 mg PO HS 02/01/19 06/28/19 History metformin 500 mg PO BID 02/01/19 06/28/19 History cholecalciferol (vitamin D3) 1,000 unit PO QAM 06/28/19 06/28/19 History [Vitamin D3] hydrochlorothiazide 25 mg PO QAM 06/28/19 06/28/19 History losartan 50 mg PO QAM 06/28/19 06/28/19 History multivitamin 1 tab PO 02/13/20 02/13/20 History propranolol 20 mg PO BID 06/28/19 06/28/19 History Allergies Allergy/AdvReac Type Severity Reaction Status Date / Time Iodinated Contrast Media Allergy Intermediate Hives Unverified 06/28/19 12:42 shellfish derived AdvReac Severe "SEVERE Verified 06/28/19 12:42 VOMITING" acetaminophen [From Tylenol] AdvReac Intermediate nose bleeds Unverified 06/28/19 10:43 ibuprofen AdvReac Intermediate nose bleeds Unverified 06/28/19 10:43 aspirin AdvReac Mild EPISTAXIS Verified 06/28/19 10:37 Past Med/Surg History Medical History (Updated 06/28/19 @ 12:41 by Yen Covington PA-C) Anxiety Cirrhosis of liver ALCOHOLIC PER PT Depression Diabetes ORAL MEDS Essential tremor History of ETOH abuse Hyperlipidemia Hypertension Migraine HX-F/U NEUROLOGIST [place] Post traumatic stress disorder Sleep apnea MILD-CPAP HS Surgical History (Updated 06/28/19 @ 12:15 by Yen Covington PA-C) History of colonoscopy History of esophagogastroduodenoscopy (EGD) 02/06/2019 revealed mild portal hypertensive gastropathy, evidence of varices History of ethmoidectomy Family History Mother Family history of diabetes mellitus Father , in 2007 Family hx of colon cancer Social History (Updated 06/28/19 @ 12:17 by Yen Covington PA-C) Preferred Language: Djib[place]ian Communication Ability: Effective 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 and A total of 10 systems reviewed and were otherwise negative Physical Exam Vital Signs Vital Signs - 24 hr 06/28/19 09:00 06/28/19 09:30 06/28/19 09:31 Temperature 36.5 C Temperature Source Oral Pulse Rate 123 H 123 H 141 H Pulse Rate from SpO2 Sensor Respiratory Rate 24 18 23 Respiratory Effort / Characteristics Non-Labored Respiratory Depth Normal Respiratory Pattern Regular Blood Pressure 114/87 138/98 Blood Pressure Mean 96 108 Blood Pressure Position Sitting Pulse Oximetry 99 Oxygen Delivery Method Room Air Sepsis Recent Fever Within 48 Hours No Sepsis New/Unexplained Change in Mental Status No Sepsis Action Taken by Nursing No Action Required 06/28/19 09:37 06/28/19 09:41 06/28/19 09:49 Temperature Temperature Source Pulse Rate 100 H 83 78 Pulse Rate from SpO2 Sensor Respiratory Rate 20 18 17 Respiratory Effort / Characteristics Respiratory Depth Respiratory Pattern Blood Pressure 143/100 H 144/97 H 174/92 H Blood Pressure Mean 114 100 116 Blood Pressure Position Pulse Oximetry Oxygen Delivery Method Sepsis Recent Fever Within 48 Hours Sepsis New/Unexplained Change in Mental Status Sepsis Action Taken by Nursing 06/28/19 10:00 06/28/19 10:07 06/28/19 10:15 Temperature Temperature Source Pulse Rate 101 H 91 H Pulse Rate from SpO2 Sensor 90 Respiratory Rate 16 21 Respiratory Effort / Characteristics Respiratory Depth Respiratory Pattern Blood Pressure 153/93 H 139/105 H Blood Pressure Mean 133 121 Blood Pressure Position Pulse Oximetry 96 96 Oxygen Delivery Method Room Air Sepsis Recent Fever Within 48 Hours Sepsis New/Unexplained Change in Mental Status Sepsis Action Taken by Nursing 06/28/19 10:30 06/28/19 10:45 Temperature Temperature Source Pulse Rate 101 H 112 H Pulse Rate from SpO2 Sensor 102 H 73 Respiratory Rate 17 14 Respiratory Effort / Characteristics Respiratory Depth Respiratory Pattern Blood Pressure 138/100 141/89 H Blood Pressure Mean 116 105 Blood Pressure Position Pulse Oximetry 97 95 Oxygen Delivery Method Room Air Room Air Sepsis Recent Fever Within 48 Hours Sepsis New/Unexplained Change in Mental Status Sepsis Action Taken by Nursing GENERAL: Patient is in no acute distress. HEENT: No acute trauma, normocephalic atraumatic, mucous membranes moist, no nasal congestion, no scleral icterus. NECK: No stridor, no adenopathy, no meningismus, trachea is midline. LUNGS: Clear to auscultation bilaterally, no wheeze, no rhonchi, breath sounds equal. HEART: Tachycardic rate and irregular rhythm. No murmur. ABDOMEN: Soft, nontender, bowel sounds positive, no hernias, no peritonitis. EXTREMITIES: No cyanosis or edema, full range of motion of all the joints without pain or difficulty, no signs for acute trauma. NEUROLOGIC: Oriented x 3, no acute motor or sensory deficits, no focal weakness. SKIN: Mild diaphoresis. No rash or jaundice. Course Course 911: The patient was evaluated in room C10, and a complete history and physical examination were performed. 1010: I discussed the patients case with Kanika Cloud PA-C. Dr[facility] will evaluate the patient for further management. 1014: I updated the patient at this time. Administered Medications Diltiazem HCl 125 mg/ Dextrose 125 mls @ 5 mls/hr IV .Q24H BRIANA; Protocol Stop: 07/28/19 12:31 Last Admin: 06/28/19 13:16 Dose: 5 mg/hr, 5 mls/hr Documented by: [id number] Cosigned by: [id number] Insulin Aspart (Novolog Flexpen) 0 units SC ACHS BRIANA Stop: 07/28/19 12:59 Last Admin: 06/28/19 13:40 Dose: Not Given Documented by: [id number] Cosigned by: [id number] Insulin Glargine (Lantus Solostar Pen) 0 - 8 units SC BID BRIANA; Protocol Stop: 07/28/19 12:59 Last Admin: 06/28/19 13:39 Dose: 4 units Documented by: [id number] Cosigned by: [id number] Discontinued Medications Diltiazem HCl (Cardizem) 15 mg IV NOW STA Stop: 06/28/19 09:19 Last Admin: 06/28/19 09:33 Dose: 15 mg Documented by: [id number] Cosigned by: [id number] Sodium Chloride (Nss 1000ml) 500 mls @ 999 mls/hr IV .Q31M ONE Stop: 06/28/19 09:48 Last Infusion: 06/28/19 10:04 Dose: 0 mls/hr Documented by: [id number] Admin: 06/28/19 09:33 Dose: 999 mls/hr Documented by: [id number] Diltiazem HCl 125 mg/ Dextrose 125 mls @ 0 mls/hr IV .Q0M STA; Protocol Stop: 06/28/19 09:19 Last Titration: 06/28/19 10:54 Dose: 5 mg/hr, 5 mls/hr Documented by: [id number] Cosigned by: [id number] Admin: 06/28/19 09:32 Dose: 5 mg/hr, 5 mls/hr Documented by: [id number] Cosigned by: [id number] Heparin Sodium/Dextrose (Heparin Sodium/Dextrose) 25,000 units in 500 mls @ 20 mls/hr IV .Q24H [facility]; Protocol Stop: 07/28/19 13:59 Last Admin: 06/28/19 15:39 Dose: Not Given Documented by: [id number] Potassium Chloride (Klor-Con M20) 40 meq PO NOW ONE Stop: 06/28/19 13:01 Last Admin: 06/28/19 13:40 Dose: 40 meq Documented by: [id number] Critical Care Time Critical Care Time: Yes Total Critical Care Time: 36 I have personally spent 36 minutes of critical care time in the direct management of this patient. This includes bedside care, interpretation of diagnostic studies, and testing, discussion with consultants, patient, and family members, and other required patient management activities. This 36 minutes is in excess of all separately billable procedures. Medical Decision Making Differential Diagnosis Differential diagnoses include rapid a-fib, atrial flutter, electrolyte imbalance, AL, angina, anemia, thyroid disorder and CHF amongst others. Medical Records Attestation: I reviewed the patient's medical records. Home Medications Current Medication List: was personally reviewed by me Laboratory Data Attestation: I reviewed the patient's lab results. Result diagrams: 06/28/19 09:10 06/28/19 09:10 Lab Results 06/28/19 06/28/19 06/28/19 Range/Units 09:10 09:10 09:10 WBC 4.03 L (4.8-10.8) K/uL RBC 5.32 (4.7-6.1) M/uL Hgb 16.3 (14.0-18.0) g/dL Hct 43.6 (42-52) % MCV 82.0 (80-100) fL MCH 30.6 (25-34) pg MCHC 37.4 H (32-36) g/dL RDW Std Deviation 40.1 (36.4-46.3) fL RDW Coeff of Theresa 13.5 (11.5-14.5) % Plt Count 122 L (130-400) K/uL MPV 9.7 (7.4-10.4) fL Immature Gran % (Auto) 0.2 % Neut % (Auto) 68.1 % Lymph % (Auto) 18.6 % Stokes % (Auto) 10.2 % Eos % (Auto) 1.7 % Baso % (Auto) 1.2 % Immature Gran # (Auto) 0.01 (0.00-0.02) K/uL Neut # (Auto) 2.74 (1.4-6.5) K/uL Lymph # (Auto) 0.75 L (1.2-3.4) K/uL [place] # (Auto) 0.41 (0.11-0.59) K/uL Eos # (Auto) 0.07 (0-0.5) K/uL Baso # (Auto) 0.05 (0-0.2) K/uL PT 10.4 (9.0-12.0) Seconds INR 1.0 (0.9-1.1) APTT 24.2 (21.0-31.0) Seconds PTT Ratio 0.9 Sodium 137 (136-145) mmol/L Potassium 3.6 (3.5-5.1) mmol/L Chloride 105 (98-107) mmol/L Carbon Dioxide 26 (21-32) mmol/L Anion Gap 6.0 (3-11) BUN 14 (7-18) mg/dl Creatinine 1.11 (0.6-1.4) mg/dl Est Cr Clr Drug Dosing 95.9 ml/min Est GFR ( Amer) 84.4 Est GFR (Non-Af Amer) 72.8 BUN/Creatinine Ratio 12.5 (10-20) Glucose 238 H (70-99) mg/dl Calcium 9.6 (8.5-10.1) mg/dl Magnesium 2.1 (1.8-2.4) mg/dl Total Bilirubin 0.7 (0.2-1) mg/dl AST 32 (15-37) U/L ALT 55 (12-78) U/L Alkaline Phosphatase 161 H (45-117) U/L Troponin I 0.017 (0-0.045) ng/ml Total Protein 8.2 (6.4-8.2) gm/dl Albumin 4.1 (3.4-5.0) gm/dl Globulin 4.1 H (2.5-4.0) gm/dl Albumin/Globulin Ratio 1.0 (0.9-2) TSH 2.890 (0.300-4.500) uIu/ml Imaging Data Radiologist's Impression: Radiology results as stated below per my review and the radiologist's interpretation: XR chest 1V portable CLINICAL HISTORY: 59 years-old Male presenting with SOB. TECHNIQUE: Portable upright AP view of the chest was obtained. COMPARISON: 04/22/2018. FINDINGS: Atherosclerosis of the aortic arch. Cardiac silhouette borderline enlarged. Mild pulmonary vascular prominence. No focal opacity. No large effusion or pneumothorax. Degenerative changes of the thoracic spine. IMPRESSION: 1. Borderline cardiomegaly and mild volume overload suggested. No other convincing evidence of acute cardiopulmonary disease. ACT 112: Negative or not required by law. Electronically signed by: Pa Mckoy M.D. 06/28/2019 9:57 AM ECG Data Attestation: I personally reviewed and interpreted this ECG as follows: Indication: + chest pain Rate (beats per minute): 121 Rhythm: + atrial fibrillation ECG Intervals/blocks: + Normal QT-c (QT-c 457.) ECG ST segments: no ST elevation ECG Findings: no PVCs Additional Comments: Repeat EKG per my interpretation: A-fib at [address] elevation. No PVCs. QT-c 432. Compared to previous EKG done earlier today, the patients heart rate has decreased. Blood Pressure Blood Pressure Findings: Elevated blood pressure Blood Pressure Disposition: further management by hospitalist [facility] Narrative There is no leukocytosis or concerning anemia. No coagulopathy. No significant electrolyte abnormality or kidney failure. No worrisome liver enzyme elevation. The patient appeared to be in a euthyroid state. EKG showed a rapid A. fib, no acute ischemia. Cardiac enzyme testing x1 is not consistent with acute cardiac injury. Chest x-ray does not show pneumonia or CHF. The patient presents with some chest discomfort, shortness of breath, diaphoresis and palpitations. He appears to have a rapid A. fib by work-up. The patient was aggressively managed. He was given IV saline, he was given an IV diltiazem bolus and then placed on an IV diltiazem drip. The patient's heart rate is now nicely controlled, he seems more comfortable. I do think a hospital stay is warranted. I spoke to the patient and case management. The on-call hospitalist was consulted. Continuous Cardiac Monitoring: An order was placed for continuous cardiac monitoring. The monitor shows a rate of 123 with A-fib. Impression & Plan Rapid atrial fibrillation, Shortness of breath, Diaphoresis, Precordial chest pain Discharge Plan Visit Data *Final* Discharge Date/Time: 06/28/19 11:30 Chief Complaint: Chest Pain Stated Complaint: CHEST PAIN, HIGH BP ED Provider: Jose Horta Discharge Problem: Rapid atrial fibrillation, Shortness of breath, Diaphoresis, Precordial chest pain Patient Disposition: Admitted As Inpatient Discharge Instructions Interventions: ED Discharge Assessment Last Done: 06/28/19 11:30 The macielibe's documentation has been prepared under my direction and personally reviewed by me in its entirety. I confirm that the note above accurately refl ects all work, treatment, procedures, and medical decision making performed by me.
[2019-06-28] MEDS: INSULIN GLARGINE SOLOSTAR 100 UNITS/ML 3 ML PEN SC SCH ×2 (13:39→21:48)
[2019-06-28] MEDS: INSULIN ASPART 100 UNITS/ML 3 ML PEN SC SCH ×3 (13:40→21:48)
[2019-06-28] MEDS ORDERED: Heparin Adult LOW DOSE Wt-Based Dextrose 5% 25,000 units/500 mL IV SCH (14:00)
[2019-06-28] MEDS ORDERED: HEPARIN IV BOLUS 4,000 UNITS in SYRINGE 0 ML IV ONE (14:00)
--- NOTE | 2019-06-28 14:29 | Electrocardiogram Report ---
Test Reason : Blood Pressure : / mmHG Vent. Rate : 083 BPM Atrial Rate : 187 BPM P-R Int : 000 ms QRS Dur : 090 ms QT Int : 368 ms P-R-T Axes : 000 014 045 degrees QTc Int : 432 ms Atrial fibrillation Abnormal ECG When compared with ECG of 28-JUN-2019 09:06, (unconfirmed) No significant change was found Confirmed by Velasquez Aldana ([id number]) on 06/28/2019 2:29:24 PM Referred By: REFERRED SELF Confirmed By:Velasquez Aldana
--- NOTE | 2019-06-28 14:29 | Electrocardiogram Report ---
Test Reason : Blood Pressure : / mmHG Vent. Rate : 121 BPM Atrial Rate : 267 BPM P-R Int : 000 ms QRS Dur : 084 ms QT Int : 322 ms P-R-T Axes : 000 010 043 degrees QTc Int : 457 ms Atrial fibrillation with rapid ventricular response Abnormal ECG When compared with ECG of 22-APR-2018 17:56, Atrial fibrillation has replaced Sinus rhythm Vent. rate has increased BY 50 BPM Confirmed by Velasquez Aldana ([id number]) on 06/28/2019 2:29:14 PM Referred By: REFERRED SELF Confirmed By:Velasquez Aldana
--- NOTE | 2019-06-28 16:44 | Cardiology Consultation ---
Date of Consultation June 28, 2019 Assessment & Plan (1) New onset atrial fibrillation: His troponin is detectable but negative x2. Platelet count is mildly decreased at 122, hemoglobin normal at 16.3 and INR was normal. TSH within normal limits I discussed the patient's history of significant epistaxis with Dr. Telles and given this together with his history of cirrhosis we are both hesitant to place him on heparin, therefore continue short-term diltiazem infusion for now, will consider transitioning him to beta-peri tomorrow. He is not volume overload. An echocardiogram will be performed to assess his systolic function and for valvular heart disease. Further recommendations be forthcoming as his hospital stay develops. History of Present Illness Attending Physician: Enoc Telles, History of Present Illness Lane Oro is a 59 year old [employer] who is currently employed as a trucker hand. He is seen in cardiology consultation per the request of Yen Covington PA-C and Dr Telles for the evaluation of newly diagnosed atrial fibrillation. He tells me he was in his normal state of health first and this morning, and while at work, he felt an unusual "sensation" in his chest that he felt like a "emptiness ". He had not felt this previously. EKG on arrival at 9:06 AM this morning revealed atrial fibrillation with rapid ventricular response 121 bpm. Compared to the prior tracing performed on April 22, 2018 atrial fibrillation had replaced sinus rhythm and the ventricular rate had increased by 50 bpm. Repeat EKG at 9:43 AM revealed rate controlled atrial fibrillation 83 bpm. At present, during my assessment of him on the telemetry floor, atrial fibrillation the range of 6080 bpm was present and he was on a diltiazem infusion at 5mg/h. He is feeling well without concerns. The patient's history is notable for type 2 diabetes mellitus, hypertension, dyslipidemia , hepatic cirrhosis due to alcohol use and hepatic steatosis and [facility], essential tremor, PT SD, and obstructive sleep apnea for which she is on CPAP. He describes a history of recurrent nosebleeds and has required treatment in the emergency room for this in the past. His most recent significant nosebleed was about a month ago. In January, he underwent EGD with findings of mild portal gastropathy and no esophageal varices. He reportedly follows with pulmonary at the [facility] due to a history of sarcoidosis, details unknown. He describes having had a stress test with the [employer] system 3 to 4 months ago and he received results from the providers there that the stress test was normal. Allergies Allergy/AdvReac Type Severity Reaction Status Date / Time Iodinated Contrast Media Allergy Intermediate Hives Unverified 06/28/19 12:42 shellfish derived AdvReac Severe "SEVERE Verified 06/28/19 12:42 VOMITING" acetaminophen [From Tylenol] AdvReac Intermediate nose bleeds Unverified 06/28/19 10:43 ibuprofen AdvReac Intermediate nose bleeds Unverified 06/28/19 10:43 aspirin AdvReac Mild EPISTAXIS Verified 06/28/19 10:37 Home Medications Home Medications Medication Instructions Recorded Confirmed Type potassium chloride [K-Tab] 20 meq PO QAM 04/22/18 06/28/19 History fluoxetine 20 mg PO HS 02/01/19 06/28/19 History metformin 500 mg PO BID 02/01/19 06/28/19 History cholecalciferol (vitamin D3) 1,000 unit PO QAM 06/28/19 06/28/19 History [Vitamin D3] hydrochlorothiazide 25 mg PO QAM 06/28/19 06/28/19 History losartan 50 mg PO QAM 06/28/19 06/28/19 History multivitamin 1 tab PO HS 06/28/19 06/28/19 History propranolol 20 mg PO BID 06/28/19 06/28/19 History Patient History Medical History (Updated 06/28/19 @ 12:41 by Yen Covington PA-C) Anxiety Cirrhosis of liver ALCOHOLIC PER PT Depression Diabetes ORAL MEDS Essential tremor History of ETOH abuse Hyperlipidemia Hypertension Migraine HX-F/U NEUROLOGIST [place] Post traumatic stress disorder Sleep apnea MILD-CPAP HS Surgical History (Updated 06/28/19 @ 12:15 by Yen Covington PA-C) History of colonoscopy History of esophagogastroduodenoscopy (EGD) 02/06/2019 revealed mild portal hypertensive gastropathy, evidence of varices History of ethmoidectomy Family History Mother Family history of diabetes mellitus Father , in 2007 Family hx of colon cancer Social History (Updated 06/28/19 @ 12:17 by Yen Covington PA-C) Preferred Language: Cymraes Communication Ability: Effective Escapement Matcher Required: No Beliefs That Will Affect Care: None Current Living Situation: Alone Other Information That Helps Us Care for You: No Feels Safe at Home: Yes Safety Concerns: Feels Safe At This Time Smoking Status: Never smoker Do You Dip or Chew Tobacco: No ; Second Hand Exposure: No ; Tobacco Cessation Education Requested by Patient: No Hx Alcohol Use: Yes Alcohol type: hard liquor Alcohol Intake Frequency Comment: States abstinent for 4-5 years Hx Substance Use: No Review of Systems Review of Systems: All systems reviewed & are unremarkable except as noted in HPI & below Physical Exam Physical Exam: Temp Pulse Resp BP Pulse Ox 36.9 C 91 H 18 124/74 96 06/28/19 16:24 06/28/19 16:24 06/28/19 16:24 06/28/19 16:24 06/28/19 16:24 Constitutional: WD/WN, vitals as above Respiratory: normal respiratory effort, lungs clear to auscultation Cardiovascular: Rate/Rhythm: + irregularly irregular Heart Sounds: normal S1 and normal S2; no murmur Extremities: no edema Gastrointestinal (Abdomen): normal bowel sounds, soft, nontender, no hepatosplenomegaly Neurologic: PERRL, EOMI, accommodation nl, no face palsy, no dysarthria Results & Data ([facility]) Vital Signs (Past 12 Hours) Vital Signs Temp Pulse Pulse Resp BP BP Pulse Ox 06/28/19 16:24 36.9 C 91 H 18 124/74 96 06/28/19 13:23 36.6 C 88 20 146/81 H 97 06/28/19 12:32 95 H 06/28/19 11:00 119 H 16 127/100 97 06/28/19 10:45 112 H 14 141/89 H 95 06/28/19 10:30 101 H 17 138/100 97 06/28/19 10:15 91 H 21 139/105 H 96 06/28/19 10:07 96 06/28/19 10:00 101 H 16 153/93 H 06/28/19 09:49 78 17 174/92 H 06/28/19 09:41 83 18 144/97 H 06/28/19 09:37 100 H 20 143/100 H 06/28/19 09:31 141 H 23 138/98 06/28/19 09:30 123 H 18 06/28/19 09:00 36.5 C 123 H 24 114/87 99 Laboratory Results Cardiac Enzymes 06/28/19 06/28/19 Range/Units 09:10 14:55 AST 32 (15-37) U/L Troponin I 0.017 0.041 (0-0.045) ng/ml Coagulation INR 1 06/28/19 Range/Units 09:10 PT 10.4 (9.0-12.0) Seconds APTT 24.2 (21.0-31.0) Seconds CBC 06/28/19 Range/Units 09:10 WBC 4.03 L (4.8-10.8) K/uL RBC 5.32 (4.7-6.1) M/uL Hgb 16.3 (14.0-18.0) g/dL Hct 43.6 (42-52) % Plt Count 122 L (130-400) K/uL Neut # (Auto) 2.74 (1.4-6.5) K/uL Lymph # (Auto) 0.75 L (1.2-3.4) K/uL [place] # (Auto) 0.41 (0.11-0.59) K/uL Eos # (Auto) 0.07 (0-0.5) K/uL Baso # (Auto) 0.05 (0-0.2) K/uL Comprehensive Metabolic Panel 06/28/19 Range/Units 09:10 Sodium 137 (136-145) mmol/L Potassium 3.6 (3.5-5.1) mmol/L Chloride 105 (98-107) mmol/L Carbon Dioxide 26 (21-32) mmol/L BUN 14 (7-18) mg/dl Creatinine 1.11 (0.6-1.4) mg/dl Glucose 238 H (70-99) mg/dl Calcium 9.6 (8.5-10.1) mg/dl AST 32 (15-37) U/L ALT 55 (12-78) U/L Alkaline Phosphatase 161 H (45-117) U/L Total Protein 8.2 (6.4-8.2) gm/dl Albumin 4.1 (3.4-5.0) gm/dl Intake and Output 06/28/19 06/28/19 06/28/19 06:59 14:59 22:59 Intake Total 506.833 / 506.833 Balance 506.833 / 506.833 Intake: IV 506.833 / 506.833 Nss 1000ML 500 ml @ 999 mls/hr 500 / 500 IV .Q31M ONE Rx#:[id number] Cardizem 125 mg In D5 100 ml @ 6.833 / 6.833 Per Protocol IV .Q0M STA Rx#: [id number] Other: Weight 116.6 kg Patient Weight 06/29/19 06:59 Weight 116.6 kg
[2019-06-28] MEDS ORDERED: FLUOXETINE HCL 20 MG CAP PO SCH (21:00)
[2019-06-28] MEDS: PROPRANOLOL HCL 20 MG TAB PO SCH (21:45)
[2019-06-29] MEDS: MULTIVITAMIN TAB PO SCH ×2 (00:09→20:48)
[2019-06-29 06:51] LABS: Hematocrit (blood only) 41.7 % (42-52); Hemoglobin 14.9 g/dL (14.0-18.0); Mean Corpuscular Hemoglobin 29.6 pg (25-34); Mean Corpuscular Hgb Conc 35.7 g/dL (32-36); Mean Corpuscular Volume 82.7 fL (80-100); Mean Platelet Volume 9.8 fL (7.4-10.4); Platelet Count 116 K/uL (130-400); RDW Coefficient of Variation 13.9 % (11.5-14.5); RDW Standard Deviation 41.6 fL (36.4-46.3); Red Blood Count 5.04 M/uL (4.7-6.1); White Blood Count 4.43 K/uL (4.8-10.8)
[2019-06-29 07:20] LABS: BUN Creatinine Ratio 16.6 (10-20); Creatinine Clr Calc Pharmacy 98.1 ml/min; Est GFR (African American) 88.2; Est GFR (Non-African American) 76.1; Potassium 3.9 mmol/L (3.5-5.1)
[2019-06-29] MEDS: LOSARTAN POTASSIUM 50 MG TAB PO SCH (08:08)
[2019-06-29] MEDS: INSULIN ASPART 100 UNITS/ML 3 ML PEN SC SCH ×4 (08:09→21:03)
[2019-06-29] MEDS: hydroCHLOROthiazide 25 MG TAB PO SCH (08:10)
[2019-06-29] MEDS: CHOLECALCIFEROL 1,000 UNITS 25 MCG TAB PO SCH (08:11)
[2019-06-29] MEDS: PROPRANOLOL HCL 20 MG TAB PO SCH (08:11)
[2019-06-29] MEDS: POTASSIUM CHLORIDE 20 MEQ TABCR PO SCH (08:11)
[2019-06-29] MEDS: INSULIN GLARGINE SOLOSTAR 100 UNITS/ML 3 ML PEN SC SCH ×2 (08:12→21:03)
[2019-06-29 08:22] LABS: Estimated Average Glucose 120 mg/dl; Hemoglobin A1C 5.8 % (4.5-5.6)
[2019-06-29] MEDS ORDERED: SOTALOL HCL 80 MG TAB PO ONE (10:57)
--- NOTE | 2019-06-29 11:08 | Cardiology Progress Note ---
Date of Service June 29, 2019 Assessment & Plan (1) New onset atrial fibrillation: Patient presented yesterday with newly diagnosed symptomatic atrial fibrillation. He converted back to sinus rhythm while on a low-dose diltiazem infusion last evening at 21:24 and is estimated that he was in atrial fibrillation less than 12 hours. He is a poor candidate for anticoagulation due to his history of hepatic cirrhosis, portal gastropathy, and recurrent severe epistaxis. The patient is clearly very symptomatic when he is in atrial fibrillation, prompting his symptoms yesterday, and it sounds as if he has been having waxing waning symptoms for several months that likely correlate with episodes of previously undocumented atrial fibrillation. Echocardiogram performed 06/28/2019 reviewed independently revealed borderline concentric left ventricular hypertrophy with interventricular septal thickness in diastole of 1.2 cm and posterior wall thickness of 1.1 cm. The biventricular systolic function was normal, with qualitative left ventricular ejection fraction in the range of 55-60 %. EKG this morning 06/29/2019 at 6:39 AM I reviewed dependently revealed sinus rhythm at 65 bpm, with normal ST segments, QT interval is normal at 443 ms. Compared to 06/28/2019 sinus rhythm has replaced atrial fibrillation. Recommendations: Discussion with the patient. My advice is that he would benefit from initiation of sotalol for a rhythm control strategy to help minimize his symptoms, and my thoughts are that his risk of stroke would be lower if we minimize his atrial fibrillation burden. His QT interval is normal at baseline, and there is no need for adjustment of the dosing of sotalol in the setting of liver disease. His nonselective beta-peri propranolol will need to be placed discontinued for the time being, he did not have esophageal varices on his previous EGD but did have portal gastropathy. I have also canceled his PRN Zofran order. He is on fluoxetine, which has the potential for interacting with the sotalol and prolonging the QT interval, and therefore I have canceled this medication. If he needs an SSRI, sertraline is felt to be a safer alternative in the setting of sotalol treatment. He will remain on telemetry for sotalol initiation for the first 6 doses, I anticipate admission until Tuesday. Daily EKG tracings have been requested. First dose of sotalol 80 mg now, then twice daily starting at 2100 tonight. In terms of stroke prophylaxis in the setting of paroxysmal atrial fibrillation, the most recent guidelines suggest that the benefit of aspirin is negligible, and given the patient's history of epistaxis and bleeding risk, I think it is most prudent to proceed without aspirin therapy. Would consider Lovenox for DVT prophylaxis while patient is hospitalized. Subjective Chief complaint: Follow-up atrial fibrillation Subjective: Patient feeling well. On telemetry, he converted from atrial fibrillation to sinus rhythm last evening, 06/28/2019 at 21: 24 hours, and he is remained in sinus rhythm/sinus bradycardia in the meantime. Review of Systems Review of Systems: All systems reviewed & are unremarkable except as noted in HPI & below Physical Exam Physical Exam: Temp Pulse Resp BP Pulse Ox 36.4 C L 58 L 19 139/88 98 06/29/19 07:36 06/29/19 07:36 06/29/19 07:36 06/29/19 07:36 06/29/19 07:36 Constitutional: WD/WN, vitals as above Respiratory: normal respiratory effort, lungs clear to auscultation Cardiovascular: RRR, no murmur, no edema Gastrointestinal (Abdomen): normal bowel sounds, soft, nontender, no hepatosplenomegaly Neurologic: PERRL, EOMI, accommodation nl, no face palsy, no dysarthria Results & Data Vital Signs (Past 12 Hours) Vital Signs Temp Pulse Resp BP BP Pulse Ox 06/29/19 07:36 36.4 C L 58 L 19 139/88 98 06/29/19 04:30 36.5 C 60 18 136/85 97 06/28/19 23:40 36.4 C L 60 18 119/78 97 Laboratory Results Cardiac Enzymes 06/28/19 06/28/19 Range/Units 14:55 20:50 Troponin I 0.041 0.023 (0-0.045) ng/ml CBC 06/29/19 Range/Units 06:27 WBC 4.43 L (4.8-10.8) K/uL RBC 5.04 (4.7-6.1) M/uL Hgb 14.9 (14.0-18.0) g/dL Hct 41.7 L (42-52) % Plt Count 116 L (130-400) K/uL Comprehensive Metabolic Panel 06/29/19 Range/Units 06:27 Sodium 139 (136-145) mmol/L Potassium 3.9 (3.5-5.1) mmol/L Chloride 107 (98-107) mmol/L Carbon Dioxide 28 (21-32) mmol/L BUN 18 (7-18) mg/dl Creatinine 1.07 (0.6-1.4) mg/dl Glucose 121 H (70-99) mg/dl Calcium 9.0 (8.5-10.1) mg/dl Intake and Output 06/28/19 06/29/19 06/29/19 22:59 06:59 14:59 Intake Total 42.417 / 849.250 300 / 849.250 Balance 42.417 / 849.250 300 / 849.250 Intake: IV 42.417 / 549.250 Oral 300 / 300 Other: # Unmeasured Voids 2 Weight 117.4 kg
--- NOTE | 2019-06-29 12:14 | Hospitalist Progress Note ---
Date of Service June 29, 2019 Assessment & Plan (1) Precordial chest pain: (2) New onset atrial fibrillation: Present on admission with chest pain, shortness of breath, palpitations and diaphoresis and was found to be on Afib with RVR EKG on admission showed Afib with RVR Received IV cardizem and was starting on cardizem drip Converted back to NSR last night at 2100 Cardiology on board Case discussed with cardiology and plan to start on sotalol for rhythm control strategy to help minimize his symptoms and recurrent afib Propranolol discontinued Will monitor his QT closely while on sotalol Will get serial EKG daily [id number] 2; Hasbled 2 No a good candidate for anticoagulation due to history of severe epistaxis with ASA and ibuprofen, hx of cirrhosis No anticoagulant therapy as per cardiology Fluoxetine and Zofran were discontinued while on sotalol due to increase risk of QTC prolongation ECHO showed no wall motion abnormality with EF 55- 60 % Continue monitor closely in tele (3) Diabetes: A1c 6.1 06/12/2019 Continue to hold metformin while inpatient Lantus/NovoLog per protocol Continue monitor BS (4) Cirrhosis of liver: Follows [facility] Compensated LFTs WNL No edema or hepatic encephalopathy Continue alcohol cessation recommend weight loss Stable (5) Thrombocytopenia: Platelet count 116 today No current signs of active bleeding Continue monitor (6) Hypertension: BP stable Continue losartan Propranolol was discontinued Continue Monitor BP (7) Sleep apnea: CPAP at bedtime (8) Hyperlipidemia: Not on Statin therapy Total cholesterol 144, HDL 27, LDL 87, triglyceride 213, done on 06/12/2019 (9) Essential tremor: Propranolol discontinued since starting on Sotalol (10) History of ETOH abuse: Pt denies ETOH in 4-5 years Will monitor closely for sign of withdrawn since friend said that he heard pt had a drink few days ago (11) DVT prophylaxis: On Lovenox supq Disposition Continue monitor in tele Plan to discharge on Tuesday Admission and Anticipated Discharge Date Admission Date: June 28, 2019 Subjective Pt was seen and examined Lying in bed with no distress Pt said that he feels much better He converted back to NSR last night after 9pm Denies any chest pain, palpitation, dizziness and SOB Physical Exam Physical Exam: General- No acute distress Head- atraumatic Eyes- PERRL, EOMI, ENT- oropharynx clear Neck- supple, no JVD Lungs- clear to auscultation Heart- regular rhythm; no murmur Abdomen- normal bowel sounds, soft, nontender Extremities- no calf tenderness Neuro- alert, oriented x 3; PERRL, EOMI; no facial palsy; no dysarthria Skin- warm & dry Results & Data ([facility]) Vital Signs (Past 12 Hours) Vital Signs Temp Pulse Resp BP BP Pulse Ox 06/29/19 11:56 36.7 C 63 20 142/89 H 94 06/29/19 07:36 36.4 C L 58 L 19 139/88 98 06/29/19 04:30 36.5 C 60 18 136/85 97
--- NOTE | 2019-06-29 12:17 | Electrocardiogram Report ---
Test Reason : Blood Pressure : / mmHG Vent. Rate : 094 BPM Atrial Rate : 322 BPM P-R Int : 000 ms QRS Dur : 084 ms QT Int : 366 ms P-R-T Axes : 000 012 036 degrees QTc Int : 457 ms Atrial flutter with variable A-V block Abnormal ECG When compared with ECG of 28-JUN-2019 09:43, Atrial flutter has replaced Atrial fibrillation Confirmed by Velasquez Aldana ([id number]) on 06/29/2019 12:17:03 PM Referred By: REFERRED SELF Confirmed By:Velasquez Aldana
[2019-06-29] MEDS: ENOXAPARIN INJ 40 MG/0.4 ML SYR SQ SCH (12:27)
[2019-06-29] MEDS: SOTALOL HCL 80 MG TAB PO SCH (20:48)
--- NOTE | 2019-06-30 07:42 | Electrocardiogram Report ---
Test Reason : Blood Pressure : / mmHG Vent. Rate : 065 BPM Atrial Rate : 065 BPM P-R Int : 164 ms QRS Dur : 086 ms QT Int : 426 ms P-R-T Axes : 074 037 056 degrees QTc Int : 443 ms Normal sinus rhythm Normal ECG When compared with ECG of 28-JUN-2019 11:32, (unconfirmed) Sinus rhythm has replaced Atrial flutter Confirmed by Velasquez Aldana ([id number]) on 06/30/2019 7:42:37 AM Referred By: REFERRED SELF Confirmed By:Velasquez Aldana
[2019-06-30] MEDS: INSULIN ASPART 100 UNITS/ML 3 ML PEN SC SCH ×4 (08:10→20:31)
[2019-06-30] MEDS: SOTALOL HCL 80 MG TAB PO SCH ×2 (08:11→20:32)
[2019-06-30] MEDS: hydroCHLOROthiazide 25 MG TAB PO SCH (08:12)
[2019-06-30] MEDS: POTASSIUM CHLORIDE 20 MEQ TABCR PO SCH (08:12)
[2019-06-30] MEDS: LOSARTAN POTASSIUM 50 MG TAB PO SCH (08:12)
[2019-06-30] MEDS: ENOXAPARIN INJ 40 MG/0.4 ML SYR SQ SCH (08:13)
[2019-06-30] MEDS: CHOLECALCIFEROL 1,000 UNITS 25 MCG TAB PO SCH (08:13)
[2019-06-30] MEDS: INSULIN GLARGINE SOLOSTAR 100 UNITS/ML 3 ML PEN SC SCH ×2 (08:13→20:32)
--- NOTE | 2019-06-30 10:58 | Cardiology Progress Note ---
Date of Service June 30, 2019 Assessment & Plan (1) New onset atrial fibrillation: Continue sotalol loading, 80 mg twice daily. Patient is not a strong candidate for long-term anticoagulation due to cirrhosis and history of recurrent epistaxis. Repeat ECG in a.m. Continue telemetry monitoring. Subjective Patient seen and examined the bedside. No recurrent atrial fibrillation on telemetry. Denies chest pain or palpitations. No lightheadedness, dizziness, syncope, or near syncope. Tolerating diet medications. QT interval within acceptable range for repeat ECG today. He has received a total of 3 doses of sotalol thus far. No signs/symptoms of GI/ blood loss or epistaxis. Patient offers no complaints at this time. Review of Systems Review of Systems: All systems reviewed & are unremarkable except as noted in HPI & below Physical Exam Constitutional: well developed and well nourished; no acute distress Respiratory: normal respiratory effort, lungs clear to auscultation Cardiovascular: Rate/Rhythm: regular rate and regular rhythm Heart Sounds: normal S1 and normal S2; no gallop, no murmur and no cardiac rub Palpation: normal PMI Vessels: no JVD Extremities: no edema Gastrointestinal (Abdomen): Inspection/Auscultation: abdomen normal to inspection and normal bowel sounds; abdomen not distended Percussion/Palpation: abdomen soft; abdomen nontender, no guarding and abdomen not rigid Musculoskeletal: no cyanosis or clubbing, extremities motor strength 5/5 Skin: no rashes, warm and dry Neurologic: moves all extremities; no focal motor deficits Psychiatric: A+Ox3, euthymic affect Results & Data Vital Signs (Past 12 Hours) Vital Signs Temp Pulse Pulse Pulse Resp BP BP 06/30/19 07:12 36.6 C 56 L 18 127/81 06/30/19 04:30 36.7 C 57 L 18 115/73 06/30/19 00:44 36.3 C L 56 L 18 138/63 06/29/19 23:09 56 L Pulse Ox 06/30/19 07:12 97 06/30/19 04:30 96 06/30/19 00:44 97 06/29/19 23:09
--- NOTE | 2019-06-30 12:53 | Hospitalist Progress Note ---
Date of Service June 30, 2019 Assessment & Plan (1) Precordial chest pain: (2) New onset atrial fibrillation: Present on admission with chest pain, shortness of breath, palpitations and diaphoresis and was found to be on Afib with RVR EKG on admission showed Afib with RVR Received IV cardizem and was starting on cardizem drip Converted back to NSR last night at 2100 Cardiology on board Case discussed with cardiology and plan to start on sotalol for rhythm control strategy to help minimize his symptoms and recurrent afib Propranolol discontinued Started on Sotalol 80mg BID Continue monitor his QT closely while on sotalol Will repeat EKG in am [id number] 2; Hasbled 2 No a good candidate for anticoagulation due to history of severe epistaxis with ASA and ibuprofen, hx of cirrhosis No anticoagulant therapy as per cardiology due to risk of bleeding Fluoxetine and Zofran were discontinued while on sotalol due to increase risk of QTC prolongation ECHO showed no wall motion abnormality with EF 55- 60 % Continue monitor closely in tele (3) Diabetes: A1c 6.1 06/12/2019 Continue to hold metformin while inpatient Lantus/NovoLog per protocol Continue monitor BS (4) Cirrhosis of liver: Follows [facility] Compensated LFTs WNL No edema or hepatic encephalopathy Continue alcohol cessation recommend weight loss Stable (5) Thrombocytopenia: Platelet count 116 today No current signs of active bleeding Continue monitor (6) Hypertension: BP stable Continue losartan Propranolol was discontinued Continue Monitor BP (7) Sleep apnea: CPAP at bedtime (8) Hyperlipidemia: Not on Statin therapy Total cholesterol 144, HDL 27, LDL 87, triglyceride 213, done on 06/12/2019 (9) Essential tremor: Propranolol discontinued since starting on Sotalol (10) History of ETOH abuse: Pt denies ETOH in 4-5 years Will monitor closely for sign of withdrawn since friend said that he heard pt had a drink few days ago (11) DVT prophylaxis: On Lovenox supq Disposition Continue monitor in tele Plan to discharge on Tuesday Admission and Anticipated Discharge Date Admission Date: June 28, 2019 Subjective Pt was seen and examined Sitting in bed with no distress Pt said that he feel fine Denies any chest pain, palpitation and SOB Physical Exam Physical Exam: General- No acute distress Head- atraumatic Eyes- PERRL, EOMI, ENT- oropharynx clear Neck- supple, no JVD Lungs- clear to auscultation Heart- regular rhythm; no murmur Abdomen- normal bowel sounds, soft, nontender Extremities- no calf tenderness Neuro- alert, oriented x 3; PERRL, EOMI; no facial palsy; no dysarthria Skin- warm & dry Results & Data ([facility]) Vital Signs (Past 12 Hours) Vital Signs Temp Pulse Pulse Resp BP BP Pulse Ox 06/30/19 11:12 37.4 C 98 H 19 132/74 96 06/30/19 07:12 36.6 C 56 L 18 127/81 97 06/30/19 04:30 36.7 C 57 L 18 115/73 96
--- NOTE | 2019-06-30 19:42 | Electrocardiogram Report ---
Test Reason : Blood Pressure : / mmHG Vent. Rate : 060 BPM Atrial Rate : 060 BPM P-R Int : 174 ms QRS Dur : 090 ms QT Int : 464 ms P-R-T Axes : 063 026 050 degrees QTc Int : 464 ms Normal sinus rhythm Normal ECG When compared with ECG of 29-JUN-2019 06:39, No significant change was found Confirmed by Getachew Valerio ([id number]) on 06/30/2019 7:42:40 PM Referred By: REFERRED SELF Confirmed By:Getachew Valerio
[2019-06-30] MEDS: MULTIVITAMIN TAB PO SCH (20:33)
[2019-07-01] MEDS: INSULIN ASPART 100 UNITS/ML 3 ML PEN SC SCH ×4 (08:35→20:58)
[2019-07-01] MEDS: LOSARTAN POTASSIUM 50 MG TAB PO SCH (08:36)
[2019-07-01] MEDS: SOTALOL HCL 80 MG TAB PO SCH ×2 (08:36→20:57)
[2019-07-01] MEDS: ENOXAPARIN INJ 40 MG/0.4 ML SYR SQ SCH (08:37)
[2019-07-01] MEDS: POTASSIUM CHLORIDE 20 MEQ TABCR PO SCH (08:37)
[2019-07-01] MEDS: hydroCHLOROthiazide 25 MG TAB PO SCH (08:37)
[2019-07-01] MEDS: INSULIN GLARGINE SOLOSTAR 100 UNITS/ML 3 ML PEN SC SCH ×2 (08:37→20:59)
[2019-07-01] MEDS: CHOLECALCIFEROL 1,000 UNITS 25 MCG TAB PO SCH (08:38)
--- NOTE | 2019-07-01 10:15 | Hospitalist Progress Note ---
Date of Service July 01, 2019 Assessment & Plan (1) Precordial chest pain: (2) New onset atrial fibrillation: Present on admission with chest pain, shortness of breath, palpitations and diaphoresis and was found to be on Afib with RVR EKG on admission showed Afib with RVR Received IV cardizem and was starting on cardizem drip Converted back to NSR last night at 2100 Cardiology on board Case discussed with cardiology and plan to start on sotalol for rhythm control strategy to help minimize his symptoms and recurrent afib Propranolol discontinued Continue Sotalol 80mg BID Continue monitor his QT closely while on sotalol Will repeat EKG in am [id number] 2; Hasbled 2 No a good candidate for anticoagulation due to history of severe epistaxis with ASA and ibuprofen, hx of cirrhosis No anticoagulant therapy as per cardiology due to risk of bleeding Fluoxetine and Zofran were discontinued while on sotalol due to increase risk of QTC prolongation ECHO showed no wall motion abnormality with EF 55- 60 % Continue monitor closely in tele (3) Diabetes: A1c 6.1 06/12/2019 Continue to hold metformin while inpatient Lantus/NovoLog per protocol Continue monitor BS (4) Cirrhosis of liver: Follows [facility] Compensated LFTs WNL No edema or hepatic encephalopathy Continue alcohol cessation recommend weight loss Stable (5) Thrombocytopenia: Platelet count 116 today No current signs of active bleeding Continue monitor (6) Hypertension: BP stable Continue losartan Propranolol was discontinued Continue Monitor BP (7) Sleep apnea: CPAP at bedtime (8) Hyperlipidemia: Not on Statin therapy Total cholesterol 144, HDL 27, LDL 87, triglyceride 213, done on 06/12/2019 (9) Essential tremor: Propranolol discontinued since starting on Sotalol (10) History of ETOH abuse: Pt denies ETOH in 4-5 years Will monitor closely for sign of withdrawn since friend said that he heard pt had a drink few days ago (11) DVT prophylaxis: On Lovenox supq Disposition Continue monitor in tele Plan to discharge on Tuesday Admission and Anticipated Discharge Date Admission Date: June 28, 2019 Subjective Pt was seen and examined Lying in bed with no distress Pt said that he feels fine Denies any chest pain, palpitation and SOB Physical Exam Physical Exam: General- No acute distress Head- atraumatic Eyes- PERRL, EOMI, ENT- oropharynx clear Neck- supple, no JVD Lungs- clear to auscultation Heart- regular rhythm; no murmur Abdomen- normal bowel sounds, soft, nontender Extremities- no calf tenderness Neuro- alert, oriented x 3; PERRL, EOMI; no facial palsy; no dysarthria Skin- warm & dry Results & Data ([facility]) Vital Signs (Past 12 Hours) Vital Signs Temp Pulse Pulse Resp BP Pulse Ox 07/01/19 08:21 36.7 C 57 L 57 L 18 117/75 98 07/01/19 04:30 36.7 C 57 L 19 100/53 L 95 07/01/19 00:26 36.6 C 52 L 19 103/66 98
--- NOTE | 2019-07-01 14:20 | Electrocardiogram Report ---
Test Reason : Blood Pressure : / mmHG Vent. Rate : 051 BPM Atrial Rate : 051 BPM P-R Int : 172 ms QRS Dur : 092 ms QT Int : 462 ms P-R-T Axes : 043 028 048 degrees QTc Int : 425 ms Sinus bradycardia Otherwise normal ECG When compared with ECG of 30-JUN-2019 06:58, No significant change was found Confirmed by Getachew Valerio ([id number]) on 07/01/2019 2:20:07 PM Referred By: REFERRED SELF Confirmed By:Getachew Valerio
--- NOTE | 2019-07-01 16:12 | Cardiology Progress Note ---
Date of Service July 01, 2019 Assessment & Plan (1) New onset atrial fibrillation: Continue sotalol loading, 80 mg twice daily. Repeat ECG in a.m. Continue telemetry monitoring Patient is not a strong candidate for long-term anticoagulation due to cirrhosis and history of recurrent epistaxis. Tentative plan for discharge in a.m. pending review of ECG. Subjective Patient seen and examined the bedside. Remains in sinus rhythm on telemetry. Tolerating diet medications. QTc within normal limits per a.m. ECG. No signs/symptoms of GI/ blood loss. Offers no concerns/complaints this time. Review of Systems Review of Systems: All systems reviewed & are unremarkable except as noted in HPI & below Physical Exam Constitutional: well developed and well nourished; no acute distress Respiratory: normal respiratory effort, lungs clear to auscultation Cardiovascular: Rate/Rhythm: regular rate and regular rhythm Heart Sounds: normal S1 and normal S2; no gallop, no murmur and no cardiac rub Palpation: normal PMI Vessels: no JVD Extremities: no edema Gastrointestinal (Abdomen): Inspection/Auscultation: abdomen normal to inspection and normal bowel sounds; abdomen not distended Percussion/Palpation: abdomen soft; abdomen nontender, no guarding and abdomen not rigid Musculoskeletal: no cyanosis or clubbing, extremities motor strength 5/5 Skin: no rashes, warm and dry Neurologic: moves all extremities; no focal motor deficits Psychiatric: A+Ox3, euthymic affect Results & Data Vital Signs (Past 12 Hours) Vital Signs Temp Pulse Pulse Resp BP Pulse Ox 07/01/19 15:32 36.7 C 69 18 145/91 H 97 07/01/19 11:49 36.4 C L 64 18 109/68 96 07/01/19 08:21 36.7 C 57 L 57 L 18 117/75 98 07/01/19 04:30 36.7 C 57 L 19 100/53 L 95
[2019-07-01] MEDS: MULTIVITAMIN TAB PO SCH (20:58)
[2019-07-02] MEDS: POTASSIUM CHLORIDE 20 MEQ TABCR PO SCH (09:04)
[2019-07-02] MEDS: CHOLECALCIFEROL 1,000 UNITS 25 MCG TAB PO SCH (09:04)
[2019-07-02] MEDS: hydroCHLOROthiazide 25 MG TAB PO SCH (09:04)
[2019-07-02] MEDS: SOTALOL HCL 80 MG TAB PO SCH (09:04)
[2019-07-02] MEDS: INSULIN ASPART 100 UNITS/ML 3 ML PEN SC SCH ×2 (09:05→12:00)
[2019-07-02] MEDS: INSULIN GLARGINE SOLOSTAR 100 UNITS/ML 3 ML PEN SC SCH (09:05)
[2019-07-02] MEDS: LOSARTAN POTASSIUM 50 MG TAB PO SCH (09:05)
[2019-07-02] MEDS: ENOXAPARIN INJ 40 MG/0.4 ML SYR SQ SCH (09:06)
--- NOTE | 2019-07-02 11:43 | Hospitalist Progress Note ---
Date of Service July 02, 2019 Assessment & Plan (1) Precordial chest pain: (2) New onset atrial fibrillation: Present on admission with chest pain, shortness of breath, palpitations and diaphoresis and was found to be on Afib with RVR EKG on admission showed Afib with RVR Received IV cardizem and was starting on cardizem drip Converted back to NSR last night at 2100 Cardiology on board Case discussed with cardiology and plan to start on sotalol for rhythm control strategy to help minimize his symptoms and recurrent afib Propranolol discontinued Continue Sotalol 80mg BID Continue monitor his QT closely while on sotalol QT appropriate on EKG today [id number] 2; Hasbled 2 No a good candidate for anticoagulation due to history of severe epistaxis with ASA and ibuprofen, hx of cirrhosis No anticoagulant therapy as per cardiology due to risk of bleeding Fluoxetine and Zofran were discontinued while on sotalol due to increase risk of QTC prolongation (Sertraline is felt to be a safer alternative in the setting of sotalol treatment if needed a SSRI treatment for depression) ECHO showed no wall motion abnormality with EF 55- 60 % Ok from cardiology standpoint to discharge home today Follow up with [facility] cardiology in 3 to 4 weeks (3) Diabetes: A1c 6.1 06/12/2019 Continue to hold metformin while inpatient Lantus/NovoLog per protocol Continue monitor BS (4) Cirrhosis of liver: Follows [facility] GI Compensated LFTs WNL No edema or hepatic encephalopathy Continue alcohol cessation recommend weight loss Stable (5) Thrombocytopenia: Platelet count 116 today No current signs of active bleeding Continue monitor (6) Hypertension: BP stable Continue losartan Propranolol was discontinued Continue Monitor BP (7) Sleep apnea: CPAP at bedtime (8) Hyperlipidemia: Not on Statin therapy Total cholesterol 144, HDL 27, LDL 87, triglyceride 213, done on 06/12/2019 (9) Essential tremor: Propranolol discontinued since starting on Sotalol (10) History of ETOH abuse: Pt denies ETOH in 4-5 years Will monitor closely for sign of withdrawn since friend said that he heard pt had a drink few days ago (11) DVT prophylaxis: On Lovenox supq Disposition Discharge home today Follow up with [facility] cardiology in 3 to 4 weeks Follow up with your primary care provider in 1 week Admission and Anticipated Discharge Date Admission Date: June 28, 2019 Subjective Pt was seen and examined Lying in bed with no distress Pt said that he feels fine He said that he has been moving around with no distress Denies any chest pain, palpitation, dizziness and SOB Physical Exam Physical Exam: General- No acute distress Head- atraumatic Eyes- PERRL, EOMI, ENT- oropharynx clear Neck- supple, no JVD Lungs- clear to auscultation Heart- regular rhythm; no murmur Abdomen- normal bowel sounds, soft, nontender Extremities- no calf tenderness Neuro- alert, oriented x 3; PERRL, EOMI; no facial palsy; no dysarthria Skin- warm & dry Results & Data ([facility]) Vital Signs (Past 12 Hours) Vital Signs Temp Pulse Resp BP Pulse Ox 07/02/19 08:22 36.3 C L 59 L 20 131/86 99 07/02/19 04:20 36.7 C 55 L 17 110/53 L 95
--- NOTE | 2019-07-02 13:04 | Discharge Summary ---
Date of Service July 02, 2019 Admission HPI Per Admitting Provider This is a 59-year-old male who has significant PMH of T2DM, HTN, HLD, cirrhosis, history of alcohol abuse, essential tremor, migraine, PTSD, HANNA on CPAP who presents to ED secondary to chest pain, shortness of breath, palpitations and diaphoresis proximally 45 minutes prior to arrival. Patient works for [employer] and was working on campus. He developed acute onset substernal chest pain, described as dull ache, radiated to right chest wall, associated diaphoresis, shortness of breath, palpitations "feeling like my heart is beating on my chest," and dizziness. He states chest pain lasted approximately 5 minutes before relieving. Chest pain would come and go with improvement via rest. Exertion made symptoms worse. He states he has had similar symptoms off and on for many years. "I have seen many doctors who told me there was nothing wrong." He elicits he gets significantly short of breath with minimal exertion as well as exertional chest pain. His work is fairly laborious and states he gets exertional symptoms daily. He admits approximately 3 to 4 months ago at [facility] he had a stress test and only completed 40% of it due to being extremely SOB, but was told his heart was fine. SOB sx could not be explained. He dose follow pulmonary at [facility] on yearly basis due to hx of sarcoidosis. He denies any recent illness, f/c/s, syncope, n/v/d, abdominal pain, change in bowel or urinary habits. Denies hx of GI or brain bleed; however does have hx of severe epistaxis with ASA, ibuprofen and even sneezing. He denies prior hx of CAD or afib. He does follow [facility] due to known hx of cirrhosis secondary to hepatic steatosis and alcohol abuse. He admits to being absent from alcohol for 4 to 5 years. However, friend who is at bedside stop me outside of room and states he he is not sure how accurate this was as he heard he had a drink 5 days ago. In ED patient was found to be atrial fibrillation with rapid ventricular rate. He otherwise remained hemodynamically stable. He received IV diltiazem bolus and initiated on diltiazem drip which improved heart rates. During my evaluation he was going in and out of atrial fibrillation. Lab work notable for thrombocytopenia with platelet count 122, K3.6, BUN 14, creatinine 1.11, glucose 238, mag 2.1, troponin 0.017, TSH WNL. Chest x-ray revealed cardiomegaly with mild volume overload. Admission Exam Per Admitting Provider Constitutional: WD/WN, Morbidly obese M, vitals as above, NAD, sitting up in bed, pleasant, conversing easily Head: Normocephalic, Atraumatic, + erythematous facial flushing Eyes: PERRL, conjunctivae normal, anicteric sclerae ENMT: external ear and nose normal, oropharynx normal Neck: trachea midline, no thyromegaly normal visual inspection Respiratory: normal respiratory effort, lungs clear to auscultation, no wheeze, rales, rhonchi. Normal insp/exp effort, no accessory muscle use Cardiovascular: IRR/IRR, no murmur, no edema Vessels: no JVD or carotid bruit Chest: normal inspection of chest Abdomen: obese abd, normal bowel sounds, soft, mild tenderness to palpation to RUQ, +hepatomegaly Musculoskeletal: no cyanosis or clubbing, extremities motor strength 5/5 Skin: no rashes, warm and dry normal turgor Neurologic: PERRL, EOMI, accommodation nl, no face palsy, no dysarthria CN's II-XI intact bilaterally and moves all extremities Psychiatric: A+Ox3, euthymic affect Lymphatic: no cervical or axillary lymphadenopathy : deferred Principal Diagnosis (1) Precordial chest pain: (2) New onset atrial fibrillation: (3) Diabetes: (4) Cirrhosis of liver (5) Thrombocytopenia: (6) Hypertension (7) Sleep apnea: (8) Hyperlipidemia (9) Essential tremor: (10) History of ETOH abuse: Discharge Exam General- No acute distress Head- atraumatic Eyes- PERRL, EOMI, ENT- oropharynx clear Neck- supple, no JVD Lungs- clear to auscultation Heart- regular rhythm; no murmur Abdomen- normal bowel sounds, soft, nontender Extremities- no calf tenderness Neuro- alert, oriented x 3; PERRL, EOMI; no facial palsy; no dysarthria Skin- warm & dry Discharge Data Allergies Allergy/AdvReac Type Severity Reaction Status Date / Time Iodinated Contrast Media Allergy Intermediate Hives Unverified 06/28/19 12:42 shellfish derived AdvReac Severe "SEVERE Verified 06/28/19 12:42 VOMITING" acetaminophen [From Tylenol] AdvReac Intermediate nose bleeds Unverified 06/28/19 10:43 ibuprofen AdvReac Intermediate nose bleeds Unverified 06/28/19 10:43 aspirin AdvReac Mild EPISTAXIS Verified 06/28/19 10:37 Consultations 06/28/19 10:11 ED Decision to Admit Stat 06/28/19 10:56 Consult Cardiology Routine Ordered Studies XR chest 1V portable CLINICAL HISTORY: 59 years-old Male presenting with SOB. TECHNIQUE: Portable upright AP view of the chest was obtained. COMPARISON: 04/22/2018. FINDINGS: Atherosclerosis of the aortic arch. Cardiac silhouette borderline enlarged. Mild pulmonary vascular prominence. No focal opacity. No large effusion or pneumothorax. Degenerative changes of the thoracic spine. IMPRESSION: 1. Borderline cardiomegaly and mild volume overload suggested. No other convincing evidence of acute cardiopulmonary disease. ACT 112: Negative or not required by law. Electronically signed by: Pa Mckoy M.D. 06/28/2019 9:57 AM Dictated: 06/28/19954 Transcribed: 06/28/19954 Hospital Course (1) Precordial chest pain: (2) New onset atrial fibrillation: Present on admission with chest pain, shortness of breath, palpitations and diaphoresis and was found to be on Afib with RVR EKG on admission showed Afib with RVR Received IV cardizem and was starting on cardizem drip Converted back to NSR last night at 2100 Cardiology on board Case discussed with cardiology and plan to start on sotalol for rhythm control strategy to help minimize his symptoms and recurrent afib Propranolol discontinued Continue Sotalol 80mg BID Continue monitor his QT closely while on sotalol QT appropriate on EKG today [id number]; Hasbled 2 No a good candidate for anticoagulation due to history of severe epistaxis with ASA and ibuprofen, hx of cirrhosis No anticoagulant therapy as per cardiology due to risk of bleeding Fluoxetine and Zofran were discontinued while on sotalol due to increase risk of QTC prolongation (Sertraline is felt to be a safer alternative in the setting of sotalol treatment if needed a SSRI treatment for depression) ECHO showed no wall motion abnormality with EF 55- 60 % Ok from cardiology standpoint to discharge home today Follow up with [facility] cardiology in 3 to 4 weeks (3) Diabetes: A1c 6.1 06/12/2019 Continue to hold metformin while inpatient Lantus/NovoLog per protocol Continue monitor BS (4) Cirrhosis of liver: Follows [facility] Compensated LFTs WNL No edema or hepatic encephalopathy Continue alcohol cessation recommend weight loss Stable (5) Thrombocytopenia: Platelet count 116 today No current signs of active bleeding Continue monitor (6) Hypertension: BP stable Continue losartan Propranolol was discontinued Continue Monitor BP (7) Sleep apnea: CPAP at bedtime (8) Hyperlipidemia: Not on Statin therapy Total cholesterol 144, HDL 27, LDL 87, triglyceride 213, done on 06/12/2019 (9) Essential tremor: Propranolol discontinued since starting on Sotalol (10) History of ETOH abuse: Pt denies ETOH in 4-5 years Will monitor closely for sign of withdrawn since friend said that he heard pt had a drink few days ago (11) DVT prophylaxis: On Lovenox supq Disposition Discharge home today Follow up with [facility] cardiology in 3 to 4 weeks Follow up with your primary care provider in 1 week Total Time Total Time Spent Total Time Spent (In Minutes): 35 minutes Total Time Includes: Examination of the Patient, Discharge Planning, Medication Reconciliation, Communication With Other Providers and Other Discharge Plan Discharge Items Reason For Visit: AFIV RVR Discharge Diagnosis: (1) Precordial chest pain: (2) New onset atrial fibrillation: (3) Diabetes: (4) Cirrhosis of liver (5) Thrombocytopenia: (6) Hypertension (7) Sleep apnea: (8) Hyperlipidemia (9) Essential tremor: (10) History of ETOH abuse: Activity: Resume your previous activity Non-emergency contact: Primary Care Provider Call non-emergency contact if: you have any medication questions Follow-up/Referrals: Pk Loya MD [Primary Care Provider] - 07/09/19 9:25 am (THIS APT HAS ALREADY BEEN MADE FOR YOU, IF THIS APT DAY OR TIME DOES NOT WORK, PLEASE RESCHEDULE) Diet: Carb Consistent or DM2 and Heart Healthy Addtl Attending Provider Instructions: Follow up with your primary care provider Dr. Loya within 1 week Follow up with [facility] Cardiology between 3 -4 weeks Propranolol was discontinued since you are starting on Sotalol Fluoxetine was discontinued due to increase risk of QT abnormality on EKG while on Sotalol (Sertraline is felt to be a safer alternative in the setting of sotalol treatment if needed treatment for depression) Pending Studies at Discharge: No Stand-Alone Forms: My [facility], Smoking Cessation Medications and DC Order Prescriptions: New sotalol 80 mg Tablet 80 mg PO BID Qty: 30 RF: 0 Continued multivitamin Tablet 1 tab PO HS RF: 0 losartan 50 mg Tablet 50 mg PO QAM RF: 0 hydrochlorothiazide 25 mg Tablet 25 mg PO QAM RF: 0 cholecalciferol (vitamin D3) [Vitamin D3] 25 mcg (1,000 unit) Tablet 1,000 unit PO QAM RF: 0 potassium chloride [K-Tab] 10 mEq Tablet Extended Release 20 meq PO QAM RF: 0 metformin 500 mg Tablet 500 mg PO BID RF: 0 Discontinued propranolol 20 mg Tablet 20 mg PO BID RF: 0 fluoxetine 20 mg Capsule 20 mg PO HS RF: 0 Admission Data Admit Date/Time: 06/28/19 10:56 Attending Provider: Stephanie Khoury Admit Provider: Enoc Telles Primary Care Provider: Pk Loya Other Providers: Rojas Rocha ; Enoc Telles
--- NOTE | 2019-07-02 14:06 | Cardiology Progress Note ---
Date of Service July 02, 2019 Assessment & Plan (1) New onset atrial fibrillation: Continue sotalol 80 mg twice daily. QT interval within normal limits without recurrent atrial fibrillation. Patient is not a strong candidate for long-term anticoagulation due to cirrhosis and history of recurrent epistaxis. No further inpatient cardiovascular testing or intervention at this time. Outpatient cardiology follow-up in 4 weeks. Subjective Patient seen and examined the bedside. No recurrent atrial fibrillation overnight. Denies chest pain or unusual shortness of breath. No recurrent palpitations. Tolerating diet and current medications. Propranolol discontinued in favor of sotalol. He received his sixth dose last night. A.m. ECG demonstrates normal QT interval. Review of Systems Review of Systems: All systems reviewed & are unremarkable except as noted in HPI & below Physical Exam Constitutional: well developed and well nourished; no acute distress Respiratory: normal respiratory effort, lungs clear to auscultation Cardiovascular: Rate/Rhythm: regular rate and regular rhythm Heart Sounds: normal S1 and normal S2; no gallop, no murmur and no cardiac rub Palpation: normal PMI Vessels: no JVD Extremities: no edema Gastrointestinal (Abdomen): Inspection/Auscultation: abdomen normal to inspection and normal bowel sounds; abdomen not distended Percussio n/Palpation: abdomen soft; abdomen nontender, no guarding and abdomen not rigid Musculoskeletal: no cyanosis or clubbing, extremities motor strength 5/5 Skin: no rashes, warm and dry Neurologic: moves all extremities; no focal motor deficits Psychiatric: A+Ox3, euthymic affect Results & Data Vital Signs (Past 12 Hours) Vital Signs Temp Pulse Pulse Resp BP BP Pulse Ox 07/02/19 13:51 36.6 C 57 L 65 20 118/75 131/86 98 07/02/19 12:35 36.6 C 65 20 118/75 98 07/02/19 08:22 36.3 C L 59 L 20 131/86 99 07/02/19 04:20 36.7 C 55 L 17 110/53 L 95
--- NOTE | 2019-07-03 05:58 | Electrocardiogram Report ---
Test Reason : Blood Pressure : / mmHG Vent. Rate : 058 BPM Atrial Rate : 058 BPM P-R Int : 170 ms QRS Dur : 088 ms QT Int : 470 ms P-R-T Axes : 066 019 036 degrees QTc Int : 461 ms Sinus bradycardia Otherwise normal ECG When compared with ECG of 01-JUL-2019 06:42, No significant change was found Confirmed by Kamran Houston ([id number]) on 07/03/2019 5:57:39 AM Referred By: REFERRED SELF Confirmed By:Kamran Houston
== END 2019-07-02 14:24 | disposition home or self-care (01) | DRG 310 ==
LOC: ED 08:53 → SUATTDRO 10:56 → 2S 10:56

== ENCOUNTER 2021-11-21 17:55 | Inpatient (IN) ==
[2021-11-21] MEDS ORDERED: ATROPINE SULFATE 0.1 MG/ML 10ML SYR IV ONE (18:26)
[2021-11-21] MEDS ORDERED: NITROGLYCERIN 2% OINTMENT 30GM TUBE EXT ONE (18:29)
[2021-11-21] MEDS ORDERED: ASPIRIN 81 MG CHEW PO STA (18:29)
--- NOTE | 2021-11-21 18:35 | Emergency Department Note ---
History of Present Illness General Chief complaint: Chest Pain Stated complaint: CHEST PAINS, HIGH BP, TACHY, SOB Time Seen by Provider: 11/21/21 18:19 Source: patient History of Present Illness Provider complaint: Chest pain Onset (ago): hour(s) Location: chest and left Radiation: extremity (Left arm) Pain Consistency: + constant Maximum Pain Intensity: 7 Quality: + other (Pressure) Relieved By: + none Exacerbated By: + other (Walking) Associated symptoms: + chest pain, + diaphoresis and + shortness of breath; no cough, no fever/chills or no nausea/vomiting PresentThiadriana is an 81-year-old male with a history of a flutter with chest pain. He states that he started having chest pain in 2019 but over the past month and a half his chest pain has gotten much worse. He has been ignoring it for the most part. He states that it feels like a pressure in the middle of his chest with radiation to the left side of his chest and tingling down his left arm. It is associated with significant shortness of breath. It is worse when he tries to walk around. He is not on any blood thinners or aspirin. He states that he had a telehealth visit with his doctor at the [facility] and his blood pressure was very high then went very low along with his heart rate, which did the same thing, and so he decided to get help. He denies any fever, cough or cold symptoms, abdominal pain, vomiting, diarrhea or urinary symptoms. He denies any leg pain but has noted some slight swelling bilaterally. Home Medications Medication Instructions Recorded Confirmed Type potassium chloride 10 mEq 20 meq PO BID 04/22/18 11/21/21 History tablet,extended release (K-Tab) multivitamin 1 tab PO HS 06/28/19 11/21/21 History atorvastatin 80 mg tablet 40 mg PO DAILY 11/21/21 11/21/21 History chlorthalidone 25 mg tablet 25 mg PO DAILY 11/21/21 11/21/21 History dicyclomine 10 mg capsule 10 mg PO TID PRN 11/21/21 11/21/21 History empagliflozin 25 mg tablet 12.5 mg PO DAILY 11/21/21 11/21/21 History (Jardiance) glipizide 5 mg tablet 2.5 mg PO BID 11/21/21 11/21/21 History losartan 100 mg tablet 100 mg PO DAILY 11/21/21 11/21/21 History metformin 1,000 mg tablet,extended 1,000 mg PO QAM 11/21/21 11/21/21 History release 24hr metformin 1,000 mg tablet,extended 500 mg PO QPM 11/21/21 11/21/21 History release 24hr naproxen sodium 220 mg tablet 220 mg PO DAILY PRN 11/21/21 11/21/21 History sotalol 80 mg tablet 80 mg PO BID 11/21/21 11/21/21 History Allergies Allergy/AdvReac Type Severity Reaction Status Date / Time Iodinated Contrast Media Allergy Intermediate Hives Unverified 11/21/21 20:59 gabapentin Allergy Unknown Verified 11/21/21 20:59 shellfish derived AdvReac Severe "SEVERE Verified 11/21/21 20:59 VOMITING" acetaminophen [From Tylenol] AdvReac Intermediate nose bleeds Unverified 11/21/21 20:59 ibuprofen AdvReac Intermediate nose bleeds Unverified 11/21/21 20:59 aspirin AdvReac Mild EPISTAXIS Verified 11/21/21 20:59 lisinopril AdvReac Cough Verified 11/21/21 20:59 Past Med/Surg History Medical History Anxiety Cirrhosis of liver ALCOHOLIC PER PT Depression Diabetes ORAL MEDS Essential tremor History of ETOH abuse Hyperlipidemia Hypertension Migraine HX-F/U NEUROLOGIST [place] Post traumatic stress disorder Sleep apnea MILD-CPAP HS Surgical History History of colonoscopy History of esophagogastroduodenoscopy (EGD) 02/06/2019 revealed mild portal hypertensive gastropathy, evidence of varices History of ethmoidectomy Family History Mother Family history of diabetes mellitus Father , in 2007 Family hx of colon cancer Social History Smoking Status: Never smoker Second Hand Exposure: No; Hx Alcohol Use: Yes Alcohol type: hard liquor Alcohol Intake Frequency Comment: States abstinent for 4-5 years Hx Substance Use: No Preferred Language: Malian Communication Ability: Effective Maintenance [place] Required: No Beliefs That Will Affect Care: None Current Living Situation: Alone Feels Safe at Home: Yes Assistive Devices: Glasses Review of Systems See HPI for pertinent positives & negatives. and A total of 10 systems reviewed and were otherwise negative Physical Exam Vital Signs Vital Signs - 24 hr 11/21/21 18:01 11/21/21 18:29 11/21/21 18:30 Temperature 35.8 C L Temperature Source Temporal Artery Scan Pulse Rate 87 103 H 95 H Pulse Rate [Apical] Respiratory Rate 20 19 25 H Respiratory Effort / Characteristics Non-Labored Respiratory Depth Normal Blood Pressure 156/97 H 133/93 Blood Pressure [Left Arm] Blood Pressure Mean 116 106 Blood Pressure Mean [Left Arm] Pulse Oximetry 97 Oxygen Delivery Method Room Air Room Air Room Air Sepsis Recent Fever Within 48 Hours No Sepsis New/Unexplained Change in Mental Status N/A Sepsis Action Taken by Nursing No Action Required 11/21/21 18:40 11/21/21 18:45 11/21/21 19:00 Temperature Temperature Source Pulse Rate 102 H 80 83 Pulse Rate [Apical] Respiratory Rate 21 20 Respiratory Effort / Characteristics Respiratory Depth Blood Pressure 116/88 122/77 Blood Pressure [Left Arm] Blood Pressure Mean 97 92 Blood Pressure Mean [Left Arm] Pulse Oximetry 97 95 96 Oxygen Delivery Method Room Air Room Air Room Air Sepsis Recent Fever Within 48 Hours Sepsis New/Unexplained Change in Mental Status Sepsis Action Taken by Nursing 11/21/21 19:15 11/21/21 19:30 11/21/21 19:45 Temperature Temperature Source Pulse Rate 97 H 103 H 79 Pulse Rate [Apical] Respiratory Rate 12 20 25 H Respiratory Effort / Characteristics Respiratory Depth Blood Pressure 124/78 104/78 107/72 Blood Pressure [Left Arm] Blood Pressure Mean 93 86 83 Blood Pressure Mean [Left Arm] Pulse Oximetry 97 96 96 Oxygen Delivery Method Room Air Room Air Room Air Sepsis Recent Fever Within 48 Hours Sepsis New/Unexplained Change in Mental Status Sepsis Action Taken by Nursing 11/21/21 19:55 11/21/21 20:00 11/21/21 20:15 Temperature Temperature Source Pulse Rate 105 H 97 H Pulse Rate [Apical] 119 H Respiratory Rate 18 31 H 17 Respiratory Effort / Characteristics Non-Labored Respiratory Depth Blood Pressure 121/83 138/98 Blood Pressure [Left Arm] 128/68 Blood Pressure Mean 95 111 Blood Pressure Mean [Left Arm] 88 Pulse Oximetry 96 96 97 Oxygen Delivery Method Room Air Room Air Room Air Sepsis Recent Fever Within 48 Hours Sepsis New/Unexplained Change in Mental Status Sepsis Action Taken by Nursing 11/21/21 20:30 11/21/21 20:45 11/21/21 21:00 Temperature Temperature Source Pulse Rate 83 80 74 Pulse Rate [Apical] Respiratory Rate 15 17 12 Respiratory Effort / Characteristics Respiratory Depth Blood Pressure 135/70 119/76 128/68 Blood Pressure [Left Arm] Blood Pressure Mean 91 90 88 Blood Pressure Mean [Left Arm] Pulse Oximetry 98 96 96 Oxygen Delivery Method Room Air Room Air Room Air Sepsis Recent Fever Within 48 Hours Sepsis New/Unexplained Change in Mental Status Sepsis Action Taken by Nursing 11/21/21 21:16 11/21/21 21:30 11/21/21 21:45 Temperature Temperature Source Pulse Rate 81 82 82 Pulse Rate [Apical] Respiratory Rate 23 19 19 Respiratory Effort / Characteristics Respiratory Depth Blood Pressure 128/68 134/63 110/69 Blood Pressure [Left Arm] Blood Pressure Mean 88 86 82 Blood Pressure Mean [Left Arm] Pulse Oximetry 98 98 98 Oxygen Delivery Method Room Air Room Air Room Air Sepsis Recent Fever Within 48 Hours Sepsis New/Unexplained Change in Mental Status Sepsis Action Taken by Nursing 11/21/21 22:00 11/21/21 22:15 11/21/21 22:30 Temperature Temperature Source Pulse Rate 72 66 71 Pulse Rate [Apical] Respiratory Rate 14 18 18 Respiratory Effort / Characteristics Respiratory Depth Blood Pressure 110/69 108/68 108/66 Blood Pressure [Left Arm] Blood Pressure Mean 82 81 80 Blood Pressure Mean [Left Arm] Pulse Oximetry 98 97 97 Oxygen Delivery Method Room Air Room Air Room Air Sepsis Recent Fever Within 48 Hours Sepsis New/Unexplained Change in Mental Status Sepsis Action Taken by Nursing Constitutional: Vital signs reviewed. Eyes: Pupils are equal round reactive to light. Conjunctiva are noninjected. ENT: Pharynx is clear without erythema or exudate. Mucous membranes are moist. Neck supple without meningeal signs. Respiratory: Clear to auscultation bilaterally. Breath sounds are equal bilaterally. Cardiovascular: Irregularly irregular rhythm. Normal rate. GI: Soft, nondistended and nontender. Bowel sounds are present. Musculoskeletal: No peripheral edema. No lower extremity tenderness. Integumentary: No cyanosis. or jaundice. Neurological: The patient is awake and alert. No focal deficits. Psychiatric: Normal affect. Not anxious appearing. Course Administered Medications Lactated Ringer's (Lr) 1,000 mls @ 100 mls/hr IV .Q10H ONE Stop: 11/22/21 05:57 Last Admin: 11/21/21 20:15 Dose: 100 mls/hr Documented by: [id number] Discontinued Medications Aspirin (Aspirin 81 Mg Chew) 81 mg PO NOW STA Stop: 11/21/21 18:30 Last Admin: 11/21/21 18:34 Dose: 81 mg Documented by: [id number] Magnesium Sulfate/Dextrose (Magnesium Sulfate / D5w) 1 gm in 100 mls @ 50 mls/hr IV ONE ONE Stop: 11/21/21 22:06 Last Admin: 11/21/21 20:55 Dose: 50 mls/hr Documented by: [id number] Nitroglycerin (Nitroglycerin 2% Ointment 30gm Tube) 0.5 inch EXT NOW ONE Stop: 11/21/21 18:30 Last Admin: 11/21/21 18:34 Dose: 0.5 inch Documented by: [id number] Potassium Chloride (Potassium Chloride Crtab 20 Meq Tabcr) 40 meq PO NOW STA Stop: 11/21/21 20:08 Last Admin: 11/21/21 20:55 Dose: 40 meq Documented by: [id number] Critical Care Time Critical Care Time: Yes Total Critical Care Time: 35 I have personally spent approximately 35 minutes of critical care time in the direct management of this patient. This includes bedside care, interpretation of diagnostic studies, and testing, discussion with consultants, patient, and family members, and other required patient management activities. These minutes are in excess of all separately billable procedures. Medical Decision Making Differential Diagnosis Unstable angina, IL, pulmonary embolism, tachydysrhythmia, A. fib with RVR, metabolic derangement Medical Records Attestation: I reviewed the patient's medical records. I did perform a limited focused review of portions of the patient's old chart on the electronic medical record. The patient has had no recent pertinent visits to this hospital. EGD and 2019 showed no evidence of esophageal varices. He states he quit drinking alcohol in 2014 when he got . Home Medications Current Medication List: was personally reviewed by me Laboratory Data Attestation: I reviewed the patient's lab results. Result diagrams: 11/21/21 18:13 11/21/21 18:13 Lab Results 11/21/21 11/21/21 11/21/21 Range/Units 18:13 18:13 18:13 WBC 5.52 (4.8-10.8) K/ul RBC 5.66 (4.63-6.08) M/uL Hgb 16.8 (14.0-18.0) g/dl Hct 47.7 (40.1-51.0) % MCV 84.3 (80.0-100.0) fL MCH 29.7 (25.0-34.0) pg MCHC 35.2 (32.0-36.0) g/dL RDW Std Deviation 42.1 (36.4-46.3) fL RDW Coeff of Theresa 13.6 (11.5-14.5) % Plt Count 130 (130-400) K/uL MPV 10.5 (9.4-12.4) fL Immature Gran % (Auto) 0.2 % Neut % (Auto) 62.1 % Lymph % (Auto) 18.5 % Coos % (Auto) 10.9 % Eos % (Auto) 7.2 % Baso % (Auto) 1.1 % Neut # (Auto) 3.43 (1.4-6.5) K/uL Lymph # (Auto) 1.02 L (1.2-3.4) K/uL Coos # (Auto) 0.60 (0.24-0.82) K/uL Eos # (Auto) 0.40 (0-0.50) K/uL Baso # (Auto) 0.06 (0-0.2) K/uL Immature Gran # (Auto) 0.01 (0.00-0.02) K/uL Platelet Estimate Decreased L (Normal) RBC Morphology Unremarkable PT 11.4 (9.0-12.0) Seconds INR 1.1 (0.9-1.1) APTT 26.6 (21.0-31.0) Seconds PTT Ratio 1.0 D-Dimer (0-500) ug/L FEU Sodium 141 (136-145) mmol/L Potassium 3.4 L (3.5-5.1) mmol/L Chloride 105 (98-107) mmol/L Carbon Dioxide 25 (21-32) mmol/L Anion Gap 11 (3-11) BUN 25 H (6-23) mg/dl Creatinine 1.03 (0.6-1.4) mg/dl Est Cr Clr Drug Dosing 101.6 ml/min Est GFR ( Amer) 91.1 ml/min Est GFR (Non-Af Amer) 78.6 ml/min BUN/Creatinine Ratio 24.3 H (10-20) Glucose 116 H (70-99(Fasting)) mg/dl Calcium 10.1 (8.5-10.1) mg/dl Magnesium 1.9 (1.7-2.4) mg/dl Total Bilirubin 1.1 H (0.2-1.0) mg/dl AST 31 (13-39) U/L ALT 32 (7-52) U/L Alkaline Phosphatase 107 H (34-104) U/L Troponin I High Sens 6.8 (0-20) pg/ml Total Protein 8.0 (6.0-8.3) gm/dl Albumin 4.6 (3.4-5.0) gm/dl Globulin 3.4 (2.5-4.0) gm/dl Albumin/Globulin Ratio 1.4 (0.9-2) Procalcitonin (0-0.5) ng/ml SARS-CoV-2, RNA, NAAT (NEGATIVE) 11/21/21 11/21/21 11/21/21 Range/Units 18:13 18:13 18:42 WBC (4.8-10.8) K/ul RBC (4.63-6.08) M/uL Hgb (14.0-18.0) g/dl Hct (40.1-51.0) % MCV (80.0-100.0) fL MCH (25.0-34.0) pg MCHC (32.0-36.0) g/dL RDW Std Deviation (36.4-46.3) fL RDW Coeff of Theresa (11.5-14.5) % Plt Count (130-400) K/uL MPV (9.4-12.4) fL Immature Gran % (Auto) % Neut % (Auto) % Lymph % (Auto) % Coos % (Auto) % Eos % (Auto) % Baso % (Auto) % Neut # (Auto) (1.4-6.5) K/uL Lymph # (Auto) (1.2-3.4) K/uL Coos # (Auto) (0.24-0.82) K/uL Eos # (Auto) (0-0.50) K/uL Baso # (Auto) (0-0.2) K/uL Immature Gran # (Auto) (0.00-0.02) K/uL Platelet Estimate (Normal) RBC Morphology PT (9.0-12.0) Seconds INR (0.9-1.1) APTT (21.0-31.0) Seconds PTT Ratio D-Dimer 550 H* (0-500) ug/L FEU Sodium (136-145) mmol/L Potassium (3.5-5.1) mmol/L Chloride (98-107) mmol/L Carbon Dioxide (21-32) mmol/L Anion Gap (3-11) BUN (6-23) mg/dl Creatinine (0.6-1.4) mg/dl Est Cr Clr Drug Dosing ml/min Est GFR ( Amer) ml/min Est GFR (Non-Af Amer) ml/min BUN/Creatinine Ratio (10-20) Glucose (70-99(Fasting)) mg/dl Calcium (8.5-10.1) mg/dl Magnesium (1.7-2.4) mg/dl Total Bilirubin (0.2-1.0) mg/dl AST (13-39) U/L ALT (7-52) U/L Alkaline Phosphatase (34-104) U/L Troponin I High Sens (0-20) pg/ml Total Protein (6.0-8.3) gm/dl Albumin (3.4-5.0) gm/dl Globulin (2.5-4.0) gm/dl Albumin/Globulin Ratio (0.9-2) Procalcitonin 0.07 (0-0.5) ng/ml SARS-CoV-2, RNA, NAAT NEGATIVE (NEGATIVE) 11/21/21 Range/Units 21:38 WBC (4.8-10.8) K/ul RBC (4.63-6.08) M/uL Hgb (14.0-18.0) g/dl Hct (40.1-51.0) % MCV (80.0-100.0) fL MCH (25.0-34.0) pg MCHC (32.0-36.0) g/dL RDW Std Deviation (36.4-46.3) fL RDW Coeff of Theresa (11.5-14.5) % Plt Count (130-400) K/uL MPV (9.4-12.4) fL Immature Gran % (Auto) % Neut % (Auto) % Lymph % (Auto) % Coos % (Auto) % Eos % (Auto) % Baso % (Auto) % Neut # (Auto) (1.4-6.5) K/uL Lymph # (Auto) (1.2-3.4) K/uL Coos # (Auto) (0.24-0.82) K/uL Eos # (Auto) (0-0.50) K/uL Baso # (Auto) (0-0.2) K/uL Immature Gran # (Auto) (0.00-0.02) K/uL Platelet Estimate (Normal) RBC Morphology PT (9.0-12.0) Seconds INR (0.9-1.1) APTT (21.0-31.0) Seconds PTT Ratio D-Dimer (0-500) ug/L FEU Sodium (136-145) mmol/L Potassium (3.5-5.1) mmol/L Chloride (98-107) mmol/L Carbon Dioxide (21-32) mmol/L Anion Gap (3-11) BUN (6-23) mg/dl Creatinine (0.6-1.4) mg/dl Est Cr Clr Drug Dosing ml/min Est GFR ( Amer) ml/min Est GFR (Non-Af Amer) ml/min BUN/Creatinine Ratio (10-20) Glucose (70-99(Fasting)) mg/dl Calcium (8.5-10.1) mg/dl Magnesium (1.7-2.4) mg/dl Total Bilirubin (0.2-1.0) mg/dl AST (13-39) U/L ALT (7-52) U/L Alkaline Phosphatase (34-104) U/L Troponin I High Sens 7.0 (0-20) pg/ml Total Protein (6.0-8.3) gm/dl Albumin (3.4-5.0) gm/dl Globulin (2.5-4.0) gm/dl Albumin/Globulin Ratio (0.9-2) Procalcitonin (0-0.5) ng/ml SARS-CoV-2, RNA, NAAT (NEGATIVE) Imaging Data Radiologist's Impression: Chest X-Ray 11/21/21 18:14 XR chest 1V portable CLINICAL HISTORY: Chest Pain. COMPARISON STUDY: 06/28/2019 TECHNIQUE: 1 view of the chest FINDINGS: Single frontal view of the chest demonstrates the cardiomediastinal silhouette to be within normal limits. The lungs are clear of alveolar opacities. There is no evidence for pleural effusion. There is no evidence for vascular congestion. There is no acute osseous pathology. IMPRESSION: 1. No acute cardiopulmonary disease. ACT 112: Negative or not required by law. Electronically signed by: Kyle Muhammad M.D. 11/21/2021 6:45 PM ECG Data Attestation: I personally reviewed and interpreted this ECG as follows: Indication: + chest pain Rate (beats per minute): 91 Rhythm: + atrial flutter ECG [place]: + Normal ECG ST segments: no ST elevation ECG Findings: no PVCs Comparison ECG Date: from (July 02, 2019) Change: the following changes noted (Now in a flutter. ) Additional Comments: Repeat twelve-lead EKG performed at 1907 per my interpretation shows sinus tach ycardia at a rate of 107 bpm. I do not see signs of a STEMI. No PVCs are noted the A-flutter is resolved. No PVCs. When the EKG was performed he stated that he did not know whether or not he had any chest discomfort. Repeat twelve-lead EKG was performed at 1930 due to jaw pain. Per my interpre tation he has a flutter with variable block. Heart rate is 102. No ST elevations are noted. No PVCs. MDM Narrative I did evaluate the patient as noted above. IV access was established. I did place an order for continuous cardiac monitoring. The monitor showed a flutter with variable block with a heart rate of 117. He then bradycardia down while I was interviewing him into the 40s and went as low as 46. He then came back up to 86 but had a brief episode of bigeminy. Atropine was kept at the bedside. I did order and personally review the patient's 12-lead EKG as described above. He has a flutter with variable block without any signs of a STEMI. I did treat him with nitroglycerin paste as well as aspirin 81 p.o.. He states that he gets bad nosebleeds if he takes too much aspirin or ibuprofen. I did order and personally reviewed the images of the patient's chest x-ray as described above. There is no evidence of acute process. I did repeat another twelve-lead EKG as the patient states that his chest pain comes and goes. He states currently he feels like a hollow sensation in his chest. Repeat twelve-lead EKG per my interpretation as above. I do not see a STEMI on this EKG but he is back in sinus rhythm with mild tachycardia. I did order and review the patient's blood work as noted in the electronic medical record. CBC is unremarkable without leukocytosis, anemia or thrombocytopenia. CMP demonstrates a potassium of 3.4 but is otherwise unremarkable. High-sensitivity troponin is negative. D-dimer is slightly elevated at 550. The patient unfortunately has a allergy to IV contrast. He states he gets hives and also stated that his throat started to feel tight but got better after he got Benadryl. Given the possibility of angioedema I am not sure that doing a CT angiogram of his chest would be the best course of action for him. 1 other option would be to start him on IV heparin but he has a history of thrombocytopenia although is not thrombocytopenic today. He does have alcoholic cirrhosis. He does not have any history of esophageal varices and he had a negative EGD in 2019 and quit drinking in 2015. He also states that he gets severe nosebleeds from NSAIDs and aspirin. He mentioned that he developed some jaw pain and so another twelve- lead EKG was obtained which showed a flutter with variable block without ST elevations. Currently he has chest pain-free but has occasional jolts of pain t hat come on randomly. He does state that he has had this similar pain for the past 2 years. He states he usually gets it about every 1 to 2 weeks. He states its been more frequent over the past month and a half. I did discuss the case in detail with Dr. Baltazar. He stated he would see the patient and decide what the best course of action would be at this point. He did see the patient and started him on a heparin drip. A second troponin was obtained which was negative. Impression & Plan Acute chest pain, Atrial flutter, paroxysmal, Bigeminy, Bradycardia, Acute hypokalemia Discharge Plan Visit Data Chief Complaint: Chest Pain Stated Complaint: CHEST PAINS, HIGH BP, TACHY, SOB ED Provider: Kiet Hicks Discharge Problem: Acute chest pain, Atrial flutter, paroxysmal, Bigeminy, Bradycardia, Acute hypokalemia Patient Disposition: Admitted As Inpatient Discharge Instructions Interventions: ED Discharge Assessment Last Done: 11/21/21 22:51 Forms Stand Alone Forms: My [facility] Prescriptions Prescriptions: No Action multivitamin Tablet 1 tab PO HS RF: 0 potassium chloride [K-Tab] 10 mEq Tablet Extended Release 20 meq PO BID RF: 0 atorvastatin 80 mg Tablet 40 mg PO DAILY RF: 0 chlorthalidone 25 mg Tablet 25 mg PO DAILY RF: 0 naproxen sodium 220 mg Tablet 220 mg PO DAILY PRN (Reason: Pain) RF: 0 losartan 100 mg Tablet 100 mg PO DAILY RF: 0 dicyclomine 10 mg Capsule 10 mg PO TID PRN (Reason: Diarrhea) RF: 0 glipizide 5 mg Tablet 2.5 mg PO BID RF: 0 metformin 1,000 mg Tablet Extended Release 24hr 1,000 mg PO QAM RF: 0 metformin 1,000 mg Tablet Extended Release 24hr 500 mg PO QPM RF: 0 Jardiance 25 mg Tablet 12.5 mg PO DAILY RF: 0 sotalol 80 mg Tablet 80 mg PO BID RF: 0 Referrals Referrals: Pk Loya MD [Primary Care Provider] -
[2021-11-21 18:46] LABS: INR 1.1 (0.9-1.1); Partial Thromboplastin Time 26.6 Seconds (21.0-31.0); Prothrombin Time 11.4 Seconds (9.0-12.0)
--- NOTE | 2021-11-21 18:46 | XRay Report ---
XR chest 1V portable CLINICAL HISTORY: Chest Pain. COMPARISON STUDY: 06/28/2019 TECHNIQUE: 1 view of the chest FINDINGS: Single frontal view of the chest demonstrates the cardiomediastinal silhouette to be within normal li mits. The lungs are clear of alveolar opacities. There is no evidence for pleural effusion. There is no evidence for vascular congestion. There is no acute osseous pathology. IMPRESSION: 1. No acute cardiopulmonary disease. ACT 112: Negative or not required by law. Electronically signed by: Kyle Muhammad M.D. 11/21/2021 6:45 PM
[2021-11-21 19:03] LABS: Albumin Globulin Ratio 1.4 (0.9-2); Albumin Level 4.6 gm/dl (3.4-5.0); BUN Creatinine Ratio 24.3 (10-20); Bilirubin,Total 1.1 mg/dl (0.2-1.0); Calcium 10.1 mg/dl (8.5-10.1); Creatinine Clr Calc Pharmacy 101.6 ml/min; Est GFR (African American) 91.1 ml/min; Est GFR (Non-African American) 78.6 ml/min; Globulin 3.4 gm/dl (2.5-4.0); Magnesium 1.9 mg/dl (1.7-2.4); Potassium 3.4 mmol/L (3.5-5.1)
[2021-11-21 19:23] LABS: Troponin I High Sensitivity 6.8 pg/ml (0-20)
[2021-11-21 19:34] LABS: D Dimer 550 ug/L FEU (0-500)
[2021-11-21 19:48] LABS: Hematocrit (blood only) 47.7 % (40.1-51.0); Hemoglobin 16.8 g/dl (14.0-18.0); Mean Corpuscular Hemoglobin 29.7 pg (25.0-34.0); Mean Corpuscular Hgb Conc 35.2 g/dL (32.0-36.0); Mean Corpuscular Volume 84.3 fL (80.0-100.0); Mean Platelet Volume 10.5 fL (9.4-12.4); Platelet Count 130 K/uL (130-400); RDW Coefficient of Variation 13.6 % (11.5-14.5); RDW Standard Deviation 42.1 fL (36.4-46.3); Red Blood Count 5.66 M/uL (4.63-6.08); White Blood Count 5.52 K/ul (4.8-10.8)
[2021-11-21] MEDS ORDERED: LACTATED RINGER'S 1,000 ML IV ONE (19:58)
[2021-11-21 20:06] LABS: Basophils # (auto) 0.06 K/uL (0-0.2); Basophils % (auto) 1.1 %; Eosinophils % (auto) 7.2 %; Immature Granulocytes # (auto) 0.01 K/uL (0.00-0.02); Immature Granulocytes % (auto) 0.2 %; Lymphocytes # (auto) 1.02 K/uL (1.2-3.4); Lymphocytes % (auto) 18.5 %; Monocytes % (auto) 10.9 %; Neutrophils # (auto) 3.43 K/uL (1.4-6.5); Neutrophils % (auto) 62.1 %; Platelet Estimate Decreased (Normal); RBC Morphology Unremarkable
[2021-11-21] MEDS ORDERED: MAGNESIUM SULFATE / D5W 1 GM/100 ML BAG IV ONE (20:07)
[2021-11-21] MEDS ORDERED: POTASSIUM CHLORIDE CRTAB 20 MEQ TABCR PO STA (20:07)
--- NOTE | 2021-11-21 21:44 | History & Physical Report ---
Date of Service November 21, 2021 Assessment & Plan (1) Atrial flutter, paroxysmal: Plan: New onset atrial flutter (history PAF on Sotalol) with bradycardia ? Tachybradycardia syndrome Chest pain secondary to above Rule out ACS given nitro relief hypertension, stable hyperlipidemia, on statin Rx hx pulmonary sarcoidosis as per records, stable DM2 on oral medications, well-controlled as of recent hemoglobin A1c of 6.24 June 2020 history of alcoholic cirrhosis, past alcohol use HANNA (currently not using CPAP ) Hypokalemia secondary to diuretic Rx chronic thrombocytopenia PCU Cardiology consult Re: Atrial flutter, bradycardia, chest pain Hold sotalol for now until patient seen by Cardiology in light of bradycardic episode Atropine as needed symptomatic bradycardia Replace electrolytes Aspirin, IV heparin for possible ACS Follow troponin TTE Re: Chest pain Basal bolus insulin, ISS BG goal 1 10-1 40, carb count coverage DVT prophylaxis. IV heparin Full code Text document was generated using [employer] voice recognition software. It may contain grammatical or spelling errors. Kindly contact undersigned for clarification of any documentation item in question. History of Present Illness Chief Complaint: Chest pain, palpitations Primary Care Provider: Pk Loya MD History obtained from patient and records. Medical history significant for paroxysmal atrial fibrillation, hypertension, hyperlipidemia, pulmonary sarcoidosis as per records, DM2 on oral medications, history of alcoholic cirrhosis, PTSD, HANNA (currently not using CPAP ), past alcohol abuse, chronic thrombocytopenia Last confinement June 2019 for chest pain, new onset A. fib status post spontaneous conversion. Patient discharged on sotalol. Not a good candidate for anticoagulation due to history of epistaxis with antiplatelet Rx as per records. 1 month history of substernal/epigastric pain going to the left arm and jaw, intermittent almost daily symptoms, with some shortness of breath/diaphoresis. Occurs even at rest. Episodic palpitations similar to A. fib episodes. Episodic lightheadedness symptoms as per patient. Patient compliant with home medications. Admits to some personal stressors. Patient rapid atrial flutter on arrival at the ER, heart rate in the 110s. Subsequent bradycardia, cardiac rate 40s with spontaneous resolution without intervention. Patient felt lightheaded during episode. Chest discomfort somewhat improved with Nitropaste administration at the ER followed by headache symptoms. Aspirin administered at the ER. Medical History as above Surgical History : Sinus surgery Family History : Heart disease, DM Personal/Social history : Non-smoker, past alcohol abuse, lives by himself Allergies Allergy/AdvReac Type Severity Reaction Status Date / Time Iodinated Contrast Media Allergy Intermediate Hives Unverified 11/21/21 20:59 gabapentin Allergy Unknown Verified 11/21/21 20:59 shellfish derived AdvReac Severe "SEVERE Verified 11/21/21 20:59 VOMITING" acetaminophen [From Tylenol] AdvReac Intermediate nose bleeds Unverified 11/21/21 20:59 ibuprofen AdvReac Intermediate nose bleeds Unverified 11/21/21 20:59 aspirin AdvReac Mild EPISTAXIS Verified 11/21/21 20:59 lisinopril AdvReac Cough Verified 11/21/21 20:59 Home Medications Medication Instructions Recorded Confirmed Type potassium chloride 10 mEq 20 meq PO BID 04/22/18 11/21/21 History tablet,extended release (K-Tab) multivitamin 1 tab PO HS 06/28/19 11/21/21 History atorvastatin 80 mg tablet 40 mg PO DAILY 11/21/21 11/21/21 History chlorthalidone 25 mg tablet 25 mg PO DAILY 11/21/21 11/21/21 History dicyclomine 10 mg capsule 10 mg PO TID PRN 11/21/21 11/21/21 History empagliflozin 25 mg tablet 12.5 mg PO DAILY 11/21/21 11/21/21 History (Jardiance) glipizide 5 mg tablet 2.5 mg PO BID 11/21/21 11/21/21 History losartan 100 mg tablet 100 mg PO DAILY 11/21/21 11/21/21 History metformin 1,000 mg tablet,extended 1,000 mg PO QAM 11/21/21 11/21/21 History release 24hr metformin 1,000 mg tablet,extended 500 mg PO QPM 11/21/21 11/21/21 History release 24hr naproxen sodium 220 mg tablet 220 mg PO DAILY PRN 11/21/21 11/21/21 History sotalol 80 mg tablet 80 mg PO BID 11/21/21 11/21/21 History Past Med/Surg History Medical History Anxiety Cirrhosis of liver ALCOHOLIC PER PT Depression Diabetes ORAL MEDS Essential tremor History of ETOH abuse Hyperlipidemia Hypertension Migraine HX-F/U NEUROLOGIST [place] Post traumatic stress disorder Sleep apnea MILD-CPAP HS Surgical History History of colonoscopy History of esophagogastroduodenoscopy (EGD) 02/06/2019 revealed mild portal hypertensive gastropathy, evidence of varices History of ethmoidectomy Family History Mother Family history of diabetes mellitus Father , in 2007 Family hx of colon cancer Social History Smoking Status: Former smoker Second Hand Exposure: No; Do You Dip or Chew Tobacco: No; Tobacco Cessation Education Requested by Patient: No Hx Alcohol Use: No Hx Substance Use: No Preferred Language: Georgian Communication Ability: Effective Clerk Telegraph Service Required: No Beliefs That Will Affect Care: None Current Living Situation: Alone Other Information That Helps Us Care for You: No Feels Safe at Home: Yes Safety Concerns: Feels Safe At This Time Assistive Devices: None Review of Systems Review of Systems: As per HPI, all other systems reviewed and negative Physical Exam Physical Exam: GENERAL: Comfortable, obese, anxious, no respiratory distress SKIN: Normal color, warm HEENT: Gillespie palpebral conjunctivae, no ptosis, dry buccal mucosa NECK : Supple, short neck, no tenderness CHEST : CTA, no tenderness HEART : RRR, no obvious murmurs ABDOMEN: Some distention, nontender EXTREMITIES : No LE swelling/tenderness, no other conspicuous deformities noted NEUROLOGIC : Coherent, no facial asymmetry, no other gross focality Results & Data Results & Data ([facility]) Vital Signs (Past 12 Hours) Vital Signs Temp Pulse Pulse Resp BP BP Pulse Ox 11/21/21 21:16 81 23 128/68 98 11/21/21 21:00 74 12 128/68 96 11/21/21 20:45 80 17 119/76 96 11/21/21 20:30 83 15 135/70 98 11/21/21 20:15 97 H 17 138/98 97 11/21/21 20:00 105 H 31 H 121/83 96 11/21/21 19:55 119 H 18 128/68 96 11/21/21 19:45 79 25 H 107/72 96 11/21/21 19:30 103 H 20 104/78 96 11/21/21 19:15 97 H 12 124/78 97 11/21/21 19:00 83 20 122/77 96 11/21/21 18:45 80 21 116/88 95 11/21/21 18:40 102 H 97 11/21/21 18:30 95 H 25 H 133/93 11/21/21 18:29 103 H 19 11/21/21 18:01 35.8 C L 87 20 156/97 H 97 Laboratory Results Laboratory Results WBC 5.52 K/ul (4.8-10.8) 11/21/21 18:13 RBC 5.66 M/uL (4.63-6.08) 11/21/21 18:13 Hgb 16.8 g/dl (14.0-18.0) 11/21/21 18:13 Hct 47.7 % (40.1-51.0) 11/21/21 18:13 MCV 84.3 fL (80.0-100.0) 11/21/21 18:13 MCH 29.7 pg (25.0-34.0) 11/21/21 18:13 MCHC 35.2 g/dL (32.0-36.0) 11/21/21 18:13 RDW Std Deviation 42.1 fL (36.4-46.3) 11/21/21 18:13 RDW Coeff of Theresa 13.6 % (11.5-14.5) 11/21/21 18:13 Plt Count 130 K/uL (130-400) 11/21/21 18:13 MPV 10.5 fL (9.4-12.4) 11/21/21 18:13 Immature Gran % (Auto) 0.2 % 11/21/21 18:13 Neut % (Auto) 62.1 % 11/21/21 18:13 Lymph % (Auto) 18.5 % 11/21/21 18:13 Brooks % (Auto) 10.9 % 11/21/21 18:13 Eos % (Auto) 7.2 % 11/21/21 18:13 Baso % (Auto) 1.1 % 11/21/21 18:13 Neut # (Auto) 3.43 K/uL (1.4-6.5) 11/21/21 18:13 Lymph # (Auto) 1.02 K/uL (1.2-3.4) L 11/21/21 18:13 Brooks # (Auto) 0.60 K/uL (0.24-0.82) 11/21/21 18:13 Eos # (Auto) 0.40 K/uL (0-0.50) 11/21/21 18:13 Baso # (Auto) 0.06 K/uL (0-0.2) 11/21/21 18:13 Immature Gran # (Auto) 0.01 K/uL (0.00-0.02) 11/21/21 18:13 Platelet Estimate Decreased (Normal) L 11/21/21 18:13 RBC Morphology Unremarkable 11/21/21 18:13 PT 11.4 Seconds (9.0-12.0) 11/21/21 18:13 INR 1.1 (0.9-1.1) 11/21/21 18:13 APTT 26.6 Seconds (21.0-31.0) 11/21/21 18:13 PTT Ratio 1.0 11/21/21 18:13 D-Dimer 550 ug/L FEU (0-500) H* 11/21/21 18:13 Sodium 141 mmol/L (136-145) 11/21/21 18:13 Potassium 3.4 mmol/L (3.5-5.1) L 11/21/21 18:13 Chloride 105 mmol/L (98-107) 11/21/21 18:13 Carbon Dioxide 25 mmol/L (21-32) 11/21/21 18:13 Anion Gap 11 (3-11) 11/21/21 18:13 BUN 25 mg/dl (6-23) H 11/21/21 18:13 Creatinine 1.03 mg/dl (0.6-1.4) 11/21/21 18:13 Est Cr Clr Drug Dosing 101.6 ml/min 11/21/21 18:13 Est GFR ( Amer) 91.1 ml/min 11/21/21 18:13 Est GFR (Non-Af Amer) 78.6 ml/min 11/21/21 18:13 BUN/Creatinine Ratio 24.3 (10-20) H 11/21/21 18:13 Glucose 116 mg/dl (70-99(Fasting)) H 11/21/21 18:13 Calcium 10.1 mg/dl (8.5-10.1) 11/21/21 18:13 Magnesium 1.9 mg/dl (1.7-2.4) 11/21/21 18:13 Total Bilirubin 1.1 mg/dl (0.2-1.0) H 11/21/21 18:13 AST 31 U/L (13-39) 11/21/21 18:13 ALT 32 U/L (7-52) 11/21/21 18:13 Alkaline Phosphatase 107 U/L (34-104) H 11/21/21 18:13 Troponin I High Sens 6.8 pg/ml (0-20) 11/21/21 18:13 Total Protein 8.0 gm/dl (6.0-8.3) 11/21/21 18:13 Albumin 4.6 gm/dl (3.4-5.0) 11/21/21 18:13 Globulin 3.4 gm/dl (2.5-4.0) 11/21/21 18:13 Albumin/Globulin Ratio 1.4 (0.9-2) 11/21/21 18:13 Procalcitonin 0.07 ng/ml (0-0.5) 11/21/21 18:13 SARS-CoV-2, RNA, NAAT NEGATIVE (NEGATIVE) 11/21/21 18:42 Impressions Chest X-Ray 11/21/21 18:14 XR chest 1V portable CLINICAL HISTORY: Chest Pain. COMPARISON STUDY: 06/28/2019 TECHNIQUE: 1 view of the chest FINDINGS: Single frontal view of the chest demonstrates the cardiomediastinal silhouette to be within normal limits. The lungs are clear of alveolar opacities. There is no evidence for pleural effusion. There is no evidence for vascular congestion. There is no acute osseous pathology. IMPRESSION: 1. No acute cardiopulmonary disease. ACT 112: Negative or not required by law. Electronically signed by: Kyle Muhammad M.D. 11/21/2021 6:45 PM Diagnostic Findings EKG as per my interpretation: Rate 105, atrial flutter, LAD, LAFB, no ischemia
[2021-11-21] MEDS ORDERED: GLUCOSE 40% GEL 15 GM TUBE PO PRN (23:23)
[2021-11-21] MEDS ORDERED: GLUCAGON FOR INJ 1 MG VIAL SQ PRN (23:23)
[2021-11-21] MEDS ORDERED: ACETAMINOPHEN 325 MG TAB PO PRN (23:23)
[2021-11-21] MEDS ORDERED: oxyCODONE HCL IR 5 MG TAB (IMMEDIATE RELEASE) PO PRN (23:23)
[2021-11-21] MEDS ORDERED: NITROGLYCERIN SL 0.4 MG/TAB TAB SL PRN (23:23)
[2021-11-21] MEDS ORDERED: DEXTROSE 50% 50 ML SYRINGE IV PRN (23:23)
[2021-11-21] MEDS ORDERED: LORazepam 0.5 MG in SYRINGE 0.25 ML IV PRN (23:23)
[2021-11-21] MEDS ORDERED: GLUCOSE 10 TAB/TUBE PO PRN (23:23)
[2021-11-21] MEDS ORDERED: MoRPHine SULFATE 4 MG/ML 1 ML CARP\\VIAL IV PRN (23:23)
[2021-11-21] MEDS ORDERED: CARBOHYDRATES FOR HYPOGLYCEMIA PO PRN (23:23)
[2021-11-21] MEDS ORDERED: PROMETHAZINE HCL 12.5 MG in SODIUM CHLORIDE 0.9% 50 ML IV PRN (23:23)
[2021-11-21] MEDS: Heparin IV Adult Wt-Based Low-Dose *NO* Bolus Protocol IV SCH (23:40)
[2021-11-22] MEDS ORDERED: ATROPINE SULFATE 0.1 MG/ML 10ML SYR IV PRN
[2021-11-22] MEDS: HEPARIN SODIUM/DEXTROSE 25,000 UNITS/500 ML BAG IV SCH ×2 (00:05→20:54)
[2021-11-22] MEDS: INSULIN ASPART PER UNIT SC SCH ×5 (00:18→20:40)
[2021-11-22] MEDS ORDERED: POTASSIUM CHLORIDE CRTAB 20 MEQ TABCR PO STA (01:43)
[2021-11-22 06:32] LABS: Partial Thromboplastin Ratio 1.3
[2021-11-22 06:43] LABS: BUN Creatinine Ratio 26.7 (10-20); Calcium 8.9 mg/dl (8.5-10.1); Chol HDL Ratio 4.6 (0-5); Creatinine Clr Calc Pharmacy 114.4 ml/min; Est GFR (African American) 107.2 ml/min; Est GFR (Non-African American) 92.5 ml/min; Potassium 3.5 mmol/L (3.5-5.1); Troponin I High Sensitivity 6.8 pg/ml (0-20)
[2021-11-22] MEDS ORDERED: HEPARIN IV BOLUS 4,000 UNITS in SYRINGE 0 ML IV ONE (07:00)
[2021-11-22 07:25] LABS: Basophils # (auto) 0.05 K/uL (0-0.2); Basophils % (auto) 1.1 %; Eosinophils # (auto) 0.34 K/uL (0-0.50); Eosinophils % (auto) 7.4 %; Hematocrit (blood only) 42.2 % (40.1-51.0); Hemoglobin 14.9 g/dl (14.0-18.0); Immature Granulocytes # (auto) 0.01 K/uL (0.00-0.02); Immature Granulocytes % (auto) 0.2 %; Lymphocytes # (auto) 0.92 K/uL (1.2-3.4); Lymphocytes % (auto) 19.9 %; Mean Corpuscular Hemoglobin 29.3 pg (25.0-34.0); Mean Corpuscular Hgb Conc 35.3 g/dL (32.0-36.0); Mean Corpuscular Volume 83.1 fL (80.0-100.0); Mean Platelet Volume 10.2 fL (9.4-12.4); Monocytes # (auto) 0.56 K/uL (0.24-0.82); Monocytes % (auto) 12.1 %; Neutrophils # (auto) 2.74 K/uL (1.4-6.5); Neutrophils % (auto) 59.3 %; Platelet Count 102 K/uL (130-400); RDW Coefficient of Variation 13.8 % (11.5-14.5); RDW Standard Deviation 41.1 fL (36.4-46.3); Red Blood Count 5.08 M/uL (4.63-6.08); White Blood Count 4.62 K/ul (4.8-10.8)
--- NOTE | 2021-11-22 08:52 | Cardiology Consultation ---
Date of Consultation November 22, 2021 Assessment & Plan (1) Atrial flutter, paroxysmal: (2) Acute chest pain: (3) Thrombocytopenia: (4) D-dimer, elevated: 61-year-old patient presents with paroxysmal atrial flutter. History of atrial fibrillation rhythm controlled with sotalol. No significant bradycardia, pauses, or heart block recorded on telemetry. Recommend titration of sotalol to 120 mg twice daily. Previously, oral anticoagulation was held due to history of epistaxis, cirrhosis, and thrombocytopenia. Most recent liver ultrasound performed 05/18/2021 demonstrating fatty infiltration without cirrhosis. Baseline coagulation profile within normal limits with platelet count above 100. Agree with continuing IV heparin at this time. Consider addition of oral apixaban at discharge pending ongoing assessment of platelet count. Elevated D-dimer noted on admission. Recommend ventilation/perfusion scan for further evaluation. Patient with documented contrast allergy. Resting 2D transthoracic echocardiogram pending. Cardiac enzymes negative without ischemic ECG changes. Pending review of V/Q scan, will consider further ischemic evaluation with outpatient Lexiscan nuclear stress testing versus exercise stress echo. History of Present Illness Reason for Consultation: Paroxysmal atrial flutter Requesting Physician: Dr. Torres Attending Physician: Agnes Sheets MD History of Present Illness 61-year-old patient presented to the emergency department with palpitations, fatigue, dyspnea, chest and jaw discomfort. Symptoms began yesterday approximately at noon. He had been working outside in the heat. Noted significant fatigue and came indoors. He then became diaphoretic. Notes elevated heart rates, extreme fatigue, dyspnea, and lack of stamina. Yesterday, he also noted discomfort in his jaw which was a new symptom. Some mild chest discomfort radiating to his left arm. Notes feeling of "the bottom dropping out" intermittently. Denies syncope or near syncope. Telemetry reveals sinus bradycardia briefly in the 40s when conversion from atrial fibrillation. Currently his heart rate is in 60s-70s. A.m. dose of sotalol held. Over the past few months, he has experienced episodes like this on a weekly basis. Typically symptoms last 2-3 hours. Associated symptoms with episodes of atrial fibrillation. D-dimer assessed on admission which was elevated, however, a CTA was not performed. Currently the patient is sinus rhythm. Pain-free and resting comfortably. Allergies Allergy/AdvReac Type Severity Reaction Status Date / Time Iodinated Contrast Media Allergy Intermediate Hives Unverified 11/21/21 20:59 gabapentin Allergy Unknown Verified 11/21/21 20:59 shellfish derived AdvReac Severe "SEVERE Verified 11/21/21 20:59 VOMITING" acetaminophen [From Tylenol] AdvReac Intermediate nose bleeds Unverified 11/21/21 20:59 ibuprofen AdvReac Intermediate nose bleeds Unverified 11/21/21 20:59 aspirin AdvReac Mild EPISTAXIS Verified 11/21/21 20:59 lisinopril AdvReac Cough Verified 11/21/21 20:59 Home Medications Medication Instructions Recorded Confirmed Type potassium chloride 10 mEq 20 meq PO BID 04/22/18 11/21/21 History tablet,extended release (K-Tab) multivitamin 1 tab PO HS 06/28/19 11/21/21 History atorvastatin 80 mg tablet 40 mg PO DAILY 11/21/21 11/21/21 History chlorthalidone 25 mg tablet 25 mg PO DAILY 11/21/21 11/21/21 History dicyclomine 10 mg capsule 10 mg PO TID PRN 11/21/21 11/21/21 History empagliflozin 25 mg tablet 12.5 mg PO DAILY 11/21/21 11/21/21 History (Jardiance) glipizide 5 mg tablet 2.5 mg PO BID 11/21/21 11/21/21 History losartan 100 mg tablet 100 mg PO DAILY 11/21/21 11/21/21 History metformin 1,000 mg tablet,extended 1,000 mg PO QAM 11/21/21 11/21/21 History release 24hr metformin 1,000 mg tablet,extended 500 mg PO QPM 11/21/21 11/21/21 History release 24hr naproxen sodium 220 mg tablet 220 mg PO DAILY PRN 11/21/21 11/21/21 History sotalol 80 mg tablet 80 mg PO BID 11/21/21 11/21/21 History Patient History Medical History Anxiety Cirrhosis of liver ALCOHOLIC PER PT Depression Diabetes ORAL MEDS Essential tremor History of ETOH abuse Hyperlipidemia Hypertension Migraine HX-F/U NEUROLOGIST [place] Post traumatic stress disorder Sleep apnea MILD-CPAP HS Surgical History History of colonoscopy History of esophagogastroduodenoscopy (EGD) 02/06/2019 revealed mild portal hypertensive gastropathy, evidence of varices History of ethmoidectomy Family History Mother Family history of diabetes mellitus Father , in 2007 Family hx of colon cancer Social History Smoking Status: Former smoker Second Hand Exposure: No; Do You Dip or Chew Tobacco: No; Tobacco Cessation Education Requested by Patient: No Hx Alcohol Use: No Hx Substance Use: No Preferred Language: Slovak Communication Ability: Effective 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 Beliefs That Will Affect Care: None Current Living Situation: Alone Other Information That Helps Us Care for You: No Feels Safe at Home: Yes Safety Concerns: Feels Safe At This Time Assistive Devices: None Review of Systems Review of Systems: All systems reviewed & are unremarkable except as noted in Subjective Physical Exam Constitutional: well nourished; no acute distress Respiratory: no respiratory distress, no labored breathing and no retractions Auscultation: no crackles, no rales, no rhonchi and no wheezes Cardiovascular: Rate/Rhythm: regular rhythm Heart Sounds: normal S1 and normal S2; no murmur Vessels: radial pulses present; no JVD and no carotid bruit Extremities: no edema Gastrointestinal (Abdomen): Inspection/Auscultation: abdomen normal to inspection and normal bowel sounds; abdomen not distended Percussion/Pal pation: abdomen soft; abdomen nontender, no guarding and abdomen not rigid Neurologic: CN's II-XI intact bilaterally and moves all extremities; no focal motor deficits Psychiatric: A+Ox3, euthymic affect Results & Data ([facility]) Vital Signs (Past 12 Hours) Vital Signs Temp Pulse Pulse Resp BP BP Pulse Ox 11/22/21 08:09 36.7 C 66 20 119/77 97 11/22/21 08:04 66 11/22/21 03:00 36.4 C L 71 20 99/61 L 98 11/21/21 23:25 36.6 C 75 16 126/84 97 11/21/21 22:30 71 18 108/66 97 11/21/21 22:15 66 18 108/68 97 11/21/21 22:00 72 14 110/69 98 11/21/21 21:45 82 19 110/69 98 11/21/21 21:30 82 19 134/63 98 11/21/21 21:16 81 23 128/68 98 11/21/21 21:00 74 12 128/68 96
[2021-11-22] MEDS: ATORVASTATIN 40 MG TAB PO SCH (09:14)
[2021-11-22] MEDS: LOSARTAN POTASSIUM 50 MG TAB PO SCH (09:14)
[2021-11-22] MEDS: POTASSIUM CHLORIDE CRTAB 20 MEQ TABCR PO SCH ×2 (09:15→20:43)
[2021-11-22] MEDS: ASPIRIN 81 MG ECTAB PO SCH (09:15)
[2021-11-22] MEDS: SOTALOL HCL 80 MG TAB PO SCH ×2 (09:21→20:41)
--- NOTE | 2021-11-22 11:27 | Hospitalist Progress Note ---
Date of Service November 22, 2021 Assessment & Plan (1) Atrial flutter, paroxysmal: Plan: Atrial flutter Acute chest pain Has h/o Afib on sotalol 80mg bid Was not on anticoagulation due to h/o recurrent epistaxis and ?cirrhosis at the time Presented with chest pain with shortness of breath as well as palpitations. Reported intermittent similar symptoms over the past few months but worse on presentation Reported pain was radiating to arm and jaw Found to be in atrial flutter. Currently rate controlled and chest pain free In sinus rhythm Cardiology on board and has increased Sotalol to 120mg bid Continue tele and monitoring. Currently on heparin drip. Plan to transition to NOAC on dc TTE showed EF of 60-65. Mild AR, Mild TR. Mild conc LVH DDimer was elevated Patient reported allergy to contrast with anaphylaxis VQ scan pending Hypertension Stable Continue losartan Hyperlipidemia Continue statin DM2 on oral medications Last Hemoglobin A1c of 6.24 June 2020 Continue ISS while inpatient Hypokalemia Likely due to diuretic K 3.5 this AM. Repleted. Monitor HANNA (currently not using CPAP ) Chronic thrombocytopenia hx pulmonary sarcoidosis as per records, stable DVT prophylaxis. IV heparin Full code Admission and Anticipated Discharge Date Admission Date: November 21, 2021 Subjective Patient seen and examined. Reports feeling better today. Denies chest pain, palpitation Denies cough, shortness of breath. Denies any nausea, vomiting, abdominal pain, diarrhea Denies fevers, chills, dysuria, frequency, urgency, incontinence Physical Exam Constitutional: + well hydrated and + obese; no acute distress Eyes: PERRL, conjunctivae normal, anicteric sclerae ENMT: external ear and nose normal, oropharynx normal Respiratory: normal respiratory effort, lungs clear to auscultation Cardiovascular: RRR, no murmur, no edema Gastrointestinal (Abdomen): normal bowel sounds, soft, nontender, no hepatosplenomegaly Musculoskeletal: no cyanosis or clubbing, extremities motor strength 5/5 Neurologic: PERRL, EOMI, accommodation nl, no face palsy, no dysarthria Psychiatric: A+Ox3, euthymic affect Results & Data Results & Data ([facility]) Vital Signs (Past 12 Hours) Vital Signs Temp Pulse Pulse Resp BP Pulse Ox 11/22/21 08:09 36.7 C 66 20 119/77 97 11/22/21 08:04 66 11/22/21 03:00 36.4 C L 71 20 99/61 L 98 Laboratory Results Abnormal lab results 11/21/21 11/21/21 11/21/21 Range/Units 18:13 18:13 18:13 WBC (4.8-10.8) K/ul Plt Count (130-400) K/uL Lymph # (Auto) 1.02 L (1.2-3.4) K/uL Platelet Estimate Decreased L (Normal) APTT (21.0-31.0) Seconds D-Dimer 550 H* (0-500) ug/L FEU Potassium 3.4 L (3.5-5.1) mmol/L BUN 25 H (6-23) mg/dl BUN/Creatinine Ratio 24.3 H (10-20) Glucose 116 H (70-99(Fasting)) mg/dl POC Glucose (70-99) mg/dl Total Bilirubin 1.1 H (0.2-1.0) mg/dl Alkaline Phosphatase 107 H (34-104) U/L Triglycerides (0-150) mg/dl VLDL Cholesterol, Calc (0-30) mg/dl 11/22/21 11/22/21 11/22/21 Range/Units 00:05 05:57 05:57 WBC 4.62 L (4.8-10.8) K/ul Plt Count 102 L (130-400) K/uL Lymph # (Auto) 0.92 L (1.2-3.4) K/uL Platelet Estimate (Normal) APTT (21.0-31.0) Seconds D-Dimer (0-500) ug/L FEU Potassium (3.5-5.1) mmol/L BUN 24 H (6-23) mg/dl BUN/Creatinine Ratio 26.7 H (10-20) Glucose 117 H (70-99(Fasting)) mg/dl POC Glucose 115 H (70-99) mg/dl Total Bilirubin (0.2-1.0) mg/dl Alkaline Phosphatase (34-104) U/L Triglycerides 285 H (0-150) mg/dl VLDL Cholesterol, Calc 57 H (0-30) mg/dl 11/22/21 11/22/21 11/22/21 Range/Units 05:57 07:37 11:09 WBC (4.8-10.8) K/ul Plt Count (130-400) K/uL Lymph # (Auto) (1.2-3.4) K/uL Platelet Estimate (Normal) APTT 35.0 H (21.0-31.0) Seconds D-Dimer (0-500) ug/L FEU Potassium (3.5-5.1) mmol/L BUN (6-23) mg/dl BUN/Creatinine Ratio (10-20) Glucose (70-99(Fasting)) mg/dl POC Glucose 125 H 146 H (70-99) mg/dl Total Bilirubin (0.2-1.0) mg/dl Alkaline Phosphatase (34-104) U/L Triglycerides (0-150) mg/dl VLDL Cholesterol, Calc (0-30) mg/dl 11/22/21 Range/Units 12:50 WBC (4.8-10.8) K/ul Plt Count (130-400) K/uL Lymph # (Auto) (1.2-3.4) K/uL Platelet Estimate (Normal) APTT 43.3 H (21.0-31.0) Seconds D-Dimer (0-500) ug/L FEU Potassium (3.5-5.1) mmol/L BUN (6-23) mg/dl BUN/Creatinine Ratio (10-20) Glucose (70-99(Fasting)) mg/dl POC Glucose (70-99) mg/dl Total Bilirubin (0.2-1.0) mg/dl Alkaline Phosphatase (34-104) U/L Triglycerides (0-150) mg/dl VLDL Cholesterol, Calc (0-30) mg/dl
--- NOTE | 2021-11-22 12:10 | Electrocardiogram Report ---
Test Reason : Blood Pressure : / mmHG Vent. Rate : 091 BPM Atrial Rate : 308 BPM P-R Int : 000 ms QRS Dur : 090 ms QT Int : 372 ms P-R-T Axes : 000 009 068 degrees QTc Int : 457 ms Atrial fibrillation Abnormal ECG When compared with ECG of 02-JUL-2019 06:43, Atrial fibrillation has replaced Sinus rhythm Vent. rate has increased BY 33 BPM Nonspecific T wave abnormality now evident in Lateral leads Confirmed by Richard Lazar ([id number]) on 11/22/2021 12:10:07 PM Referred By: REFERRED SELF Confirmed By:Julien Lazar
--- NOTE | 2021-11-22 12:12 | Electrocardiogram Report ---
Test Reason : Blood Pressure : / mmHG Vent. Rate : 102 BPM Atrial Rate : 271 BPM P-R Int : 000 ms QRS Dur : 082 ms QT Int : 296 ms P-R-T Axes : 000 -24 027 degrees QTc Int : 385 ms Atrial fibrillation Nonspecific ST and T wave abnormality Abnormal ECG When compared with ECG of 21-NOV-2021 19:07, (unconfirmed) Atrial fibrillation has replaced Sinus rhythm ST now depressed in Inferior leads ST now depressed in Anterolateral leads Nonspecific T wave abnormality now evident in Inferior leads QT has shortened Confirmed by Richard Lazar ([id number]) on 11/22/2021 12:11:49 PM Referred By: REFERRED SELF Confirmed By:Julien Lazar
--- NOTE | 2021-11-22 12:16 | Electrocardiogram Report ---
Test Reason : Blood Pressure : / mmHG Vent. Rate : 107 BPM Atrial Rate : 134 BPM P-R Int : 188 ms QRS Dur : 082 ms QT Int : 416 ms P-R-T Axes : 061 001 058 degrees QTc Int : 555 ms Atrial fibrillation Abnormal ECG Confirmed by Richard Lazar ([id number]) on 11/22/2021 12:15:50 PM Referred By: REFERRED SELF Confirmed By:Julien Lazar
--- NOTE | 2021-11-22 12:17 | Electrocardiogram Report ---
Test Reason : Blood Pressure : / mmHG Vent. Rate : 062 BPM Atrial Rate : 062 BPM P-R Int : 174 ms QRS Dur : 086 ms QT Int : 440 ms P-R-T Axes : 070 020 059 degrees QTc Int : 446 ms Normal sinus rhythm Normal ECG When compared with ECG of 21-NOV-2021 19:30, (unconfirmed) Sinus rhythm has replaced Atrial fibrillation Vent. rate has decreased BY [address] no longer depressed in Inferior leads ST no longer depressed in Anterolateral leads QT has lengthened Confirmed by Richard Lazar ([id number]) on 11/22/2021 12:17:19 PM Referred By: REFERRED SELF Confirmed By:Julien Lazar
[2021-11-22 13:35] LABS: Partial Thromboplastin Ratio 1.6; Partial Thromboplastin Time 43.3 Seconds (21.0-31.0)
[2021-11-22 20:12] LABS: Partial Thromboplastin Ratio 1.5; Partial Thromboplastin Time 42.5 Seconds (21.0-31.0)
[2021-11-22] MEDS: MULTIVITAMIN TAB PO SCH (20:43)
[2021-11-23 03:39] LABS: Partial Thromboplastin Ratio 1.7
[2021-11-23 03:40] LABS: BUN Creatinine Ratio 23.5 (10-20); Calcium 8.3 mg/dl (8.5-10.1); Est GFR (African American) 92.2 ml/min; Est GFR (Non-African American) 79.5 ml/min; Magnesium 1.9 mg/dl (1.7-2.4); Phosphorus 2.9 mg/dl (2.5-4.9); Potassium 3.3 mmol/L (3.5-5.1)
[2021-11-23 03:42] LABS: Hematocrit (blood only) 40.6 % (40.1-51.0); Hemoglobin 14.1 g/dl (14.0-18.0); Mean Corpuscular Hemoglobin 29.4 pg (25.0-34.0); Mean Corpuscular Hgb Conc 34.7 g/dL (32.0-36.0); Mean Corpuscular Volume 84.6 fL (80.0-100.0); Mean Platelet Volume 10.1 fL (9.4-12.4); Platelet Count 87 K/uL (130-400); Platelet Estimate Decreased (Normal); RDW Coefficient of Variation 13.6 % (11.5-14.5); RDW Standard Deviation 41.9 fL (36.4-46.3); White Blood Count 3.35 K/ul (4.8-10.8)
[2021-11-23 03:43] LABS: Partial Thromboplastin Time 46.4 Seconds (21.0-31.0)
[2021-11-23] MEDS ORDERED: POTASSIUM CHLORIDE CRTAB 20 MEQ TABCR PO STA (08:10)
[2021-11-23] MEDS: POTASSIUM CHLORIDE CRTAB 20 MEQ TABCR PO SCH ×2 (09:03→21:05)
[2021-11-23] MEDS: ATORVASTATIN 40 MG TAB PO SCH (09:03)
[2021-11-23] MEDS: SOTALOL HCL 80 MG TAB PO SCH ×2 (09:04→21:03)
[2021-11-23] MEDS: LOSARTAN POTASSIUM 50 MG TAB PO SCH (09:04)
[2021-11-23] MEDS: ASPIRIN 81 MG ECTAB PO SCH (09:04)
[2021-11-23] MEDS: INSULIN ASPART PER UNIT SC SCH ×4 (09:09→21:01)
[2021-11-23] MEDS: HEPARIN SODIUM/DEXTROSE 25,000 UNITS/500 ML BAG IV SCH (09:45)
--- NOTE | 2021-11-23 10:41 | Cardiology Progress Note ---
Date of Service November 23, 2021 Assessment & Plan (1) Atrial flutter, paroxysmal: (2) Acute chest pain: (3) Thrombocytopenia: (4) D-dimer, elevated: Plan: 61-year-old patient presents with paroxysmal atrial flutter. History of atrial fibrillation rhythm controlled with sotalol. No significant bradycardia, pauses, or heart block recorded on telemetry. Dose increased from 80 to 120 mg twice daily. Stable EKG findings this morning with QT/QTc interval of 442/469 ms. Previously, oral anticoagulation was held due to history of epistaxis, cirrhosis, and thrombocytopenia. He was started on IV heparin during this admission, but was stopped this morning due to worsening of his thrombocytopenia. No bleeding complications at this time. HIT antibody placed. Given issues with thrombocytopenia, history of epistaxis, and potential for bleeding risks, anticoagulation risk outweigh the benefit at this time. Chest pain resolved. Echo without wall motion abnormalities. Cardiac enzymes negative without ischemic ECG changes. V/Q scan ordered yesterday due to elevated D.Dimer and contrast allergy. Not yet done. Will re-order. Case reviewed with Dr. Worthy. Admission and Anticipated Discharge Date Admission Date: November 21, 2021 Supervising Physician Co-Signing Physician Notes Patient seen and examined at the bedside. Remains in sinus rhythm overnight. Denies recurrent palpitations or chest discomfort. Elevated D-dimer noted on admission. VQ scan pending. PE: VSS. GEn: NAD, AAO x3. Heart: Regular rhythm, normal S1S2. Lungs: clear B/L, No R/R/W. Ext: No edema. A/P: Agree with above PA-C history, physical exam, assessment and plan. Await results of VQ scan. IV heparin stopped due to thrombocytopenia. HIT antibody ordered. Continue sotalol loading 120 mg twice daily. Repeat ECG in a.m. Cardiac enzymes negative. Outpatient ischemic evaluation. Subjective Patient resting in bed comfortably. He denies acute cardiac complaints including chest pain or unusual shortness of breath. No palpitations or tachypalpitations. No dizziness. Maintaining normal sinus rhythm on laboratory monitor. Platelet count dropped this morning. Heparin stopped. Patient reports history of nose bleeds on anticoagulation. Risk of terminal gauger anticoagulation, greater than benefit. Review of Systems Review of Systems: All systems reviewed & are unremarkable except as noted in HPI & below Physical Exam Constitutional: well nourished; no acute distress Respiratory: no respiratory distress, no labored breathing and no retractions Auscultation: no crackles, no rales, no rhonchi and no wheezes Cardiovascular: Rate/Rhythm: regular rhythm Heart Sounds: normal S1 and normal S2; no murmur Vessels: radial pulses present; no JVD and no carotid bruit Extremities: no edema Gastrointestinal (Abdomen): Inspection/Auscultation: abdomen normal to inspection and normal bowel sounds; abdomen not distended Percussion/Palpation: abdomen soft; abdomen nontender, no guarding and abdomen not rigid Neurologic: CN's II-XI intact bilaterally and moves all extremities; no focal motor deficits Psychiatric: A+Ox3, euthymic affect Results & Data ([facility]) Vital Signs (Past 12 Hours) Vital Signs Temp Pulse Pulse Resp BP Pulse Ox 11/23/21 07:47 65 11/23/21 07:00 36.5 C 63 18 114/76 97 11/23/21 03:24 36.4 C L 62 18 112/73 97 11/22/21 23:00 36.6 C 67 18 108/71 96 11/22/21 22:57 68 Laboratory Results Coagulation 11/22/21 11/22/21 11/23/21 Range/Units 12:50 19:52 02:57 APTT 43.3 H 42.5 H 46.4 H* (21.0-31.0) Seconds CBC 11/23/21 Range/Units 02:57 WBC 3.35 L (4.8-10.8) K/ul RBC 4.80 (4.63-6.08) M/uL Hgb 14.1 (14.0-18.0) g/dl Hct 40.6 (40.1-51.0) % Plt Count 87 L (130-400) K/uL Comprehensive Metabolic Panel 11/23/21 Range/Units 02:57 Sodium 137 (136-145) mmol/L Potassium 3.3 L (3.5-5.1) mmol/L Chloride 103 (98-107) mmol/L Carbon Dioxide 28 (21-32) mmol/L BUN 24 H (6-23) mg/dl Creatinine 1.02 (0.6-1.4) mg/dl Glucose 125 H (70-99(Fasting)) mg/dl Calcium 8.3 L (8.5-10.1) mg/dl Intake and Output 11/22/21 11/23/21 11/23/21 22:59 06:59 14:59 Intake Total 307.633 / 725.166 249.133 / 725.166 107.8 / 107.8 Balance 307.633 / 725.166 249.133 / 725.166 107.8 / 107.8 Intake: IV 187.633 / 585.166 229.133 / 585.166 107.8 / 107.8 Heparin Sodium/Dextrose 25,000 187.633 / 585.166 229.133 / 585.166 107.8 / 107.8 units In 500 ml @ 1,400 UNITS/ HR 28 mls/hr IV .[id number] [facility] Rx #:[id number] Oral 120 / 140 20 / 140 Other: # Unmeasured Voids 1 Weight 118.2 kg Weight Measurement Method Built in Bedscale Diagnostic Findings EKG from this morning, 11/23/21: NSR, normal EKG QT/QTc 442/469 ms Telemetry reviewed: NSR with rates 60-70's. overnight occasional dip in the 40- 50 range. No recurrent afib. Echo results reviewed dated 11/22/21 Compared to prior study, no significant change. EF 60-65%, normal LV systolic function. Mild AI Mild TR Medications Administered Current Inpatient Medications Acetaminophen (Acetaminophen 325 Mg Tab) 325 mg PO Q6H PRN PRN Reason: Mild Pain Stop: 12/21/21 23:22 Aspirin (Aspirin 81 Mg Ectab) 81 mg PO QAM [facility] Stop: 12/22/21 08:59 Last Admin: 11/23/21 09:04 Dose: 81 mg Documented by: Atorvastatin Calcium (Atorvastatin 40 Mg Tab) 40 mg PO DAILY [facility] Stop: 12/22/21 08:59 Last Admin: 11/23/21 09:03 Dose: 40 mg Documented by: Atropine Sulfate (Atropine Sulfate 0.1 Mg/Ml 10ml Syr) 1 mg IV Q3M PRN PRN Reason: symptomatic bradycardia Stop: 12/22/21 00:00 Dextrose (Dextrose 50% 50 Ml Syringe) 25 - 50 ml IV UD PRN; Protocol PRN Reason: Hypoglycemia Protocol Stop: 12/21/21 23:22 Glucagon (Glucagon For Inj 1 Mg Vial) 1 mg SQ UD PRN; Protocol PRN Reason: Hypoglycemia Protocol Stop: 12/21/21 23:22 Glucose (Glucose 10 Tabs/Tube) 4 - 8 tab PO UD PRN; Protocol PRN Reason: Hypoglycemia Protocol Stop: 12/21/21 23:22 Glucose (Glucose 40% Gel 15 Gm Tube) 15 - 30 gm PO UD PRN; Protocol PRN Reason: Hypoglycemia Protocol Stop: 12/21/21 23:22 Heparin Sodium/Dextrose (Heparin Sodium/Dextrose) 25,000 units in 500 mls @ 0 mls/hr IV .Q0M [facility]; Protocol Stop: 12/21/21 21:44 Last Admin: 11/23/21 09:45 Dose: Not Given Documented by: Lorazepam 0.5 mg/ Syringe 0.5 mls @ 2 mls/min IV Q6H PRN PRN Reason: Anxiety Stop: 12/21/21 23:22 Promethazine HCl 12.5 mg/ (Sodium Chloride) 50.5 mls @ 202 mls/hr IV Q6H PRN PRN Reason: Nausea And Vomiting Stop: 12/21/21 23:22 Insulin Aspart (Insulin Aspart Per Unit) 0 units SC ACHS [facility] Stop: 12/22/21 00:00 Last Admin: 11/23/21 09:09 Dose: 3 units Documented by: Losartan Potassium (Losartan Potassium 50 Mg Tab) 100 mg PO DAILY [facility] Stop: 12/22/21 08:59 Last Admin: 11/23/21 09:04 Dose: 100 mg Documented by: Miscellaneous (Carbohydrates For Hypoglycemia ) 15 - 30 gm PO UD PRN PRN Reason: Hypoglycemia Protocol Stop: 12/21/21 23:22 Morphine Sulfate (Morphine Sulfate 4 Mg/Ml 1 Ml Carp\Vial) 4 mg IV Q4H PRN PRN Reason: Pain Stop: 12/05/21 23:22 Multivitamins (Multivitamin Tab) 1 tab PO HS [facility] Stop: 12/22/21 20:59 Last Admin: 11/22/21 20:43 Dose: 1 tab Documented by: Nitroglycerin (Nitroglycerin Sl 0.4 Mg/Tab Tab) 0.4 mg SL UD PRN PRN Reason: Chest Pain Stop: 12/21/21 23:22 Oxycodone HCl (Oxycodone Hcl Ir 5 Mg Tab (Immediate Release)) 5 mg PO Q4H PRN PRN Reason: Pain Stop: 12/05/21 23:22 Potassium Chloride (Potassium Chloride Crtab 20 Meq Tabcr) 20 meq PO BID [facility] Stop: 12/22/21 08:59 Last Admin: 11/23/21 09:03 Dose: 20 meq Documented by: Sotalol HCl (Sotalol Hcl 80 Mg Tab) 120 mg PO BID [facility] Stop: 12/22/21 08:59 Last Admin: 11/23/21 09:04 Dose: 120 mg Documented by:
--- NOTE | 2021-11-23 11:04 | Nuclear Medicine Report ---
NM pul perfusion CLINICAL HISTORY: Elevated d-dimer. Atypical chest pain. COMPARISON STUDY: Chest 11/21/2021. TECHNIQUE: Immediately following the intravenous administration of 5.4 mCi of technetium 99 M MAA for the perfusion scan, anterior, oblique, lateral, and posterior views of the chest were obtained. Vent ilation scan was not performed due to the coronavirus protocol. FINDINGS: Normal perfusion seen throughout the lungs. No perfusion defects are additional abnormaliti es identified. IMPRESSION: Normal perfusion scan. ACT 112: Negative or not required by law. Electronically signed by: Mohamud Collins M.D. 11/23/2021 11:03 AM
--- NOTE | 2021-11-23 12:30 | Hospitalist Progress Note ---
Date of Service November 23, 2021 Assessment & Plan (1) Atrial flutter, paroxysmal: Plan: Atrial flutter Acute chest pain Has h/o Afib on sotalol 80mg bid Was not on anticoagulation due to h/o recurrent epistaxis and ?cirrhosis at the time Presented with chest pain with shortness of breath as well as palpitations. Reported intermittent similar symptoms over the past few months but worse on presentation Reported pain was radiating to arm and jaw Found to be in atrial flutter. Currently rate controlled and chest pain free In sinus rhythm Cardiology on board and had increased Sotalol to 120mg bid EKG today reviewed. NSR, QTc 469 Was on heparin drip, held this AM due to worsening thrombocytopenia TTE showed EF of 60-65. Mild AR, Mild TR. Mild conc LVH DDimer was elevated Patient reported allergy to contrast with anaphylaxis VQ scan showed normal perfusion scan Hypertension Stable Continue losartan Hyperlipidemia Continue statin DM2 on oral medications Last Hemoglobin A1c of 6.24 June 2020 Continue ISS while inpatient Hypokalemia K 3.3 this AM. Replete and monitor HANNA (currently not using CPAP ) Chronic thrombocytopenia hx pulmonary sarcoidosis as per records, stable DVT prophylaxis. IV heparin held this AM Full code Admission and Anticipated Discharge Date Admission Date: November 21, 2021 Subjective Patient seen and examined. Denies any complaints today Denies chest pain, palpitation Denies cough, shortness of breath. Denies any nausea, vomiting, abdominal pain, diarrhea Denies fevers, chills, dysuria, frequency, urgency, incontinence Physical Exam Constitutional: + well hydrated and + obese; no acute distress Eyes: PERRL, conjunctivae normal, anicteric sclerae ENMT: external ear and nose normal, oropharynx normal Respiratory: normal respiratory effort, lungs clear to auscultation Cardiovascular: RRR, no murmur, no edema Gastrointestinal (Abdomen): normal bowel sounds, soft, nontender, no hepatosplenomegaly Musculoskeletal: no cyanosis or clubbing, extremities motor strength 5/5 Neurologic: PERRL, EOMI, accommodation nl, no face palsy, no dysarthria Psychiatric: A+Ox3, euthymic affect Results & Data Results & Data ([facility]) Vital Signs (Past 12 Hours) Vital Signs Temp Pulse Pulse Resp BP Pulse Ox 11/23/21 11:00 36.8 C 66 18 119/80 96 11/23/21 07:47 65 11/23/21 07:00 36.5 C 63 18 114/76 97 11/23/21 03:24 36.4 C L 62 18 112/73 97 Laboratory Results Abnormal lab results 11/22/21 11/22/21 11/22/21 Range/Units 12:50 16:31 19:52 WBC (4.8-10.8) K/ul Plt Count (130-400) K/uL Platelet Estimate (Normal) APTT 43.3 H 42.5 H (21.0-31.0) Seconds Potassium (3.5-5.1) mmol/L BUN (6-23) mg/dl BUN/Creatinine Ratio (10-20) Glucose (70-99(Fasting)) mg/dl POC Glucose 107 H (70-99) mg/dl Calcium (8.5-10.1) mg/dl 11/22/21 11/23/21 11/23/21 Range/Units 20:37 02:57 02:57 WBC 3.35 L (4.8-10.8) K/ul Plt Count 87 L (130-400) K/uL Platelet Estimate Decreased L (Normal) APTT (21.0-31.0) Seconds Potassium 3.3 L (3.5-5.1) mmol/L BUN 24 H (6-23) mg/dl BUN/Creatinine Ratio 23.5 H (10-20) Glucose 125 H (70-99(Fasting)) mg/dl POC Glucose 110 H (70-99) mg/dl Calcium 8.3 L (8.5-10.1) mg/dl 11/23/21 11/23/21 11/23/21 Range/Units 02:57 07:17 11:07 WBC (4.8-10.8) K/ul Plt Count (130-400) K/uL Platelet Estimate (Normal) APTT 46.4 H* (21.0-31.0) Seconds Potassium (3.5-5.1) mmol/L BUN (6-23) mg/dl BUN/Creatinine Ratio (10-20) Glucose (70-99(Fasting)) mg/dl POC Glucose 131 H 170 H (70-99) mg/dl Calcium (8.5-10.1) mg/dl
--- NOTE | 2021-11-23 13:03 | Electrocardiogram Report ---
Test Reason : Blood Pressure : / mmHG Vent. Rate : 068 BPM Atrial Rate : 068 BPM P-R Int : 196 ms QRS Dur : 094 ms QT Int : 442 ms P-R-T Axes : 020 015 050 degrees QTc Int : 469 ms Normal sinus rhythm Normal ECG When compared with ECG of 22-NOV-2021 05:24, No significant change was found Confirmed by Richard Lazar ([id number]) on 11/23/2021 1:02:58 PM Referred By: REFERRED SELF Confirmed By:Julien Lazar
[2021-11-23] MEDS: MULTIVITAMIN TAB PO SCH (21:05)
[2021-11-24 07:24] LABS: Hematocrit (blood only) 43.5 % (40.1-51.0); Hemoglobin 14.8 g/dl (14.0-18.0); Mean Corpuscular Hemoglobin 28.5 pg (25.0-34.0); Mean Corpuscular Volume 83.8 fL (80.0-100.0); Mean Platelet Volume 10.5 fL (9.4-12.4); Platelet Count 93 K/uL (130-400); RDW Coefficient of Variation 13.6 % (11.5-14.5); RDW Standard Deviation 41.6 fL (36.4-46.3); Red Blood Count 5.19 M/uL (4.63-6.08); White Blood Count 3.76 K/ul (4.8-10.8)
[2021-11-24 07:40] LABS: Partial Thromboplastin Time 28.4 Seconds (21.0-31.0)
[2021-11-24 07:43] LABS: BUN Creatinine Ratio 22.9 (10-20); Calcium 8.5 mg/dl (8.5-10.1); Creatinine Clr Calc Pharmacy 106.1 ml/min; Est GFR (African American) 99.2 ml/min; Est GFR (Non-African American) 85.6 ml/min; Magnesium 2.1 mg/dl (1.7-2.4); Phosphorus 3.1 mg/dl (2.5-4.9); Potassium 3.6 mmol/L (3.5-5.1)
[2021-11-24 08:17] LABS: Platelet Estimate Decreased (Normal)
[2021-11-24] MEDS: POTASSIUM CHLORIDE CRTAB 20 MEQ TABCR PO SCH (08:31)
[2021-11-24] MEDS: ASPIRIN 81 MG ECTAB PO SCH (08:31)
[2021-11-24] MEDS: LOSARTAN POTASSIUM 50 MG TAB PO SCH (08:31)
[2021-11-24] MEDS: SOTALOL HCL 80 MG TAB PO SCH (08:31)
[2021-11-24] MEDS: ATORVASTATIN 40 MG TAB PO SCH (08:31)
[2021-11-24] MEDS: INSULIN ASPART PER UNIT SC SCH ×2 (08:35→12:02)
--- NOTE | 2021-11-24 11:03 | Cardiology Progress Note ---
Date of Service November 24, 2021 Assessment & Plan (1) Atrial flutter, paroxysmal: (2) Acute chest pain: (3) Thrombocytopenia: (4) D-dimer, elevated: Plan: 61-year-old patient presents with paroxysmal atrial flutter. History of atrial fibrillation rhythm controlled with sotalol. No significant bradycardia, pauses, or heart block recorded on telemetry. Dose increased from 80 to 120 mg twice daily. Received 5th dose this morning. EKG prior to 5th dose demonstrating NSR with QT/QTC of 448/473 ms Repeat EKG pending, 2 hours post AM sotalol dose. Previously, oral anticoagulation was held due to history of epistaxis, cirrhosis, and thrombocytopenia. He was started on IV heparin during this admission, but was stopped due to worsening of his thrombocytopenia. No bleeding complications at this time. HIT antibody placed and pending Given issues with thrombocytopenia, history of epistaxis, and potential for bleeding risks, anticoagulation risk outweigh the benefit at this time. Chest pain resolved. Echo without wall motion abnormalities. Cardiac enzymes negative without ischemic ECG changes. V/Q scan was negative for PE. Await repeat EKG, to be done at least 2 hours post 5th dose of sotalol this morning. If within normal limits, likely to be discharged this afternoon. Case reviewed with Dr. Worthy. Admission and Anticipated Discharge Date Admission Date: November 21, 2021 Supervising Physician Co-Signing Physician Notes Patient seen and examined at the bedside. Remains in sinus rhythm. Denies recurrent palpitations or chest discomfort. Elevated D-dimer noted on admission. VQ scan demonstrates normal perfusion. PE: VSS. GEn: NAD, AAO x3. Heart: Regular rhythm, normal S1S2. Lungs: clear B/L, No R/R/W. Ext: No edema. A/P: Agree with above PA-C history, physical exam, assessment and plan. QTc within acceptable range. Patient may be discharged on sotalol 120 mg twice daily. HIT antibody ordered with results pending. Outpatient ischemic evaluation. Subjective Patient resting in bed without cardiac complaints. No recent chest pain or unusual shortness of breath. No palpitations or tachypalpitations. No dizziness. Maintaining normal sinus rhythm on telemetry. Review of Systems Review of Systems: All systems reviewed & are unremarkable except as noted in HPI & below Physical Exam Constitutional: well nourished; no acute distress Respiratory: no respiratory distress, no labored breathing and no retractions Auscultation: no crackles, no rales, no rhonchi and no wheezes Cardiovascular: Rate/Rhythm: regular rhythm Heart Sounds: normal S1 and normal S2; no murmur Vessels: radial pulses present; no JVD and no carotid bruit Extremities: no edema Gastrointestinal (Abdomen): Inspection/Auscultation: abdomen normal to inspection and normal bowel sounds; abdomen not distended Percussion/Palpation: abdomen soft; abdomen nontender, no guarding and abdomen not rigid Neurologic: CN's II-XI intact bilaterally and moves all extremities; no focal motor deficits Psychiatric: A+Ox3, euthymic affect Results & Data ([facility]) Vital Signs (Past 12 Hours) Vital Signs Temp Pulse Pulse Resp BP Pulse Ox 11/24/21 07:25 36.5 C 63 14 123/82 97 11/24/21 03:10 36.6 C 77 18 117/76 96 11/24/21 01:16 68 Laboratory Results Coagulation 11/24/21 Range/Units 06:46 APTT 28.4 (21.0-31.0) Seconds CBC 11/24/21 Range/Units 06:46 WBC 3.76 L (4.8-10.8) K/ul RBC 5.19 (4.63-6.08) M/uL Hgb 14.8 (14.0-18.0) g/dl Hct 43.5 (40.1-51.0) % Plt Count 93 L (130-400) K/uL Comprehensive Metabolic Panel 11/24/21 Range/Units 06:46 Sodium 137 (136-145) mmol/L Potassium 3.6 (3.5-5.1) mmol/L Chloride 103 (98-107) mmol/L Carbon Dioxide 27 (21-32) mmol/L BUN 22 (6-23) mg/dl Creatinine 0.96 (0.6-1.4) mg/dl Glucose 123 H (70-99(Fasting)) mg/dl Calcium 8.5 (8.5-10.1) mg/dl Intake and Output 11/23/21 11/24/21 11/24/21 22:59 06:59 14:59 Intake Total 420 / 547.8 547.8 Balance 420 / 547.8 20 / 547.8 Intake: Oral 420 / 440 20 / Other: # Unmeasured Voids 1 Weight 116.3 kg Weight Measurement Method Built in Bedscale Diagnostic Findings EKG this morning, pre sotalol - NSR at 67 bmp, QT/QTc 448/473 ms Telemetry reviewed: SInus bradycardia and NSR ranging 50-70 bmp. No recurrent afib. VQ perfusion Scan: Negative for PE HIT antibodies - pending Medications Administered Current Inpatient Medications Acetaminophen (Acetaminophen 325 Mg Tab) 325 mg PO Q6H PRN PRN Reason: Mild Pain Stop: 12/21/21 23:22 Aspirin (Aspirin 81 Mg Ectab) 81 mg PO QAM [facility] Stop: 12/22/21 08:59 Last Admin: 11/24/21 08:31 Dose: 81 mg Documented by: Atorvastatin Calcium (Atorvastatin 40 Mg Tab) 40 mg PO DAILY [facility] Stop: 12/22/21 08:59 Last Admin: 11/24/21 08:31 Dose: 40 mg Documented by: Atropine Sulfate (Atropine Sulfate 0.1 Mg/Ml 10ml Syr) 1 mg IV Q3M PRN PRN Reason: symptomatic bradycardia Stop: 12/22/21 00:00 Dextrose (Dextrose 50% 50 Ml Syringe) 25 - 50 ml IV UD PRN; Protocol PRN Reason: Hypoglycemia Protocol Stop: 12/21/21 23:22 Glucagon (Glucagon For Inj 1 Mg Vial) 1 mg SQ UD PRN; Protocol PRN Reason: Hypoglycemia Protocol Stop: 12/21/21 23:22 Glucose (Glucose 10 Tabs/Tube) 4 - 8 tab PO UD PRN; Protocol PRN Reason: Hypoglycemia Protocol Stop: 12/21/21 23:22 Glucose (Glucose 40% Gel 15 Gm Tube) 15 - 30 gm PO UD PRN; Protocol PRN Reason: Hypoglycemia Protocol Stop: 12/21/21 23:22 Heparin Sodium/Dextrose (Heparin Sodium/Dextrose) 25,000 units in 500 mls @ 0 mls/hr IV .Q0M [facility]; Protocol Stop: 12/21/21 21:44 Last Titration: 11/23/21 11:55 Dose: Infused Documented by: Lorazepam 0.5 mg/ Syringe 0.5 mls @ 2 mls/min IV Q6H PRN PRN Reason: Anxiety Stop: 12/21/21 23:22 Promethazine HCl 12.5 mg/ (Sodium Chloride) 50.5 mls @ 202 mls/hr IV Q6H PRN PRN Reason: Nausea And Vomiting Stop: 12/21/21 23:22 Insulin Aspart (Insulin Aspart Per Unit) 0 units SC ACHS [facility] Stop: 12/22/21 00:00 Last Admin: 11/24/21 08:35 Dose: 4 units Documented by: Losartan Potassium (Losartan Potassium 50 Mg Tab) 100 mg PO DAILY [facility] Stop: 12/22/21 08:59 Last Admin: 11/24/21 08:31 Dose: 100 mg Documented by: Miscellaneous (Carbohydrates For Hypoglycemia ) 15 - 30 gm PO UD PRN PRN Reason: Hypoglycemia Protocol Stop: 12/21/21 23:22 Morphine Sulfate (Morphine Sulfate 4 Mg/Ml 1 Ml Carp\Vial) 4 mg IV Q4H PRN PRN Reason: Pain Stop: 12/05/21 23:22 Multivitamins (Multivitamin Tab) 1 tab PO HS [facility] Stop: 12/22/21 20:59 Last Admin: 11/23/21 21:05 Dose: 1 tab Documented by: Nitroglycerin (Nitroglycerin Sl 0.4 Mg/Tab Tab) 0.4 mg SL UD PRN PRN Reason: Chest Pain Stop: 12/21/21 23:22 Oxycodone HCl (Oxycodone Hcl Ir 5 Mg Tab (Immediate Release)) 5 mg PO Q4H PRN PRN Reason: Pain Stop: 12/05/21 23:22 Potassium Chloride (Potassium Chloride Crtab 20 Meq Tabcr) 20 meq PO BID [facility] Stop: 12/22/21 08:59 Last Admin: 11/24/21 08:31 Dose: 20 meq Documented by: Sotalol HCl (Sotalol Hcl 80 Mg Tab) 120 mg PO BID [facility] Stop: 12/22/21 08:59 Last Admin: 11/24/21 08:31 Dose: 120 mg Documented by:
--- NOTE | 2021-11-24 12:12 | Electrocardiogram Report ---
Test Reason : Blood Pressure : / mmHG Vent. Rate : 067 BPM Atrial Rate : 067 BPM P-R Int : 202 ms QRS Dur : 088 ms QT Int : 448 ms P-R-T Axes : 023 014 045 degrees QTc Int : 473 ms Normal sinus rhythm Normal ECG When compared with ECG of 23-NOV-2021 08:24, No significant change was found Confirmed by Richard Lazar ([id number]) on 11/24/2021 12:12:05 PM Referred By: REFERRED SELF Confirmed By:Julien Lazar
--- NOTE | 2021-11-24 12:14 | Electrocardiogram Report ---
Test Reason : Blood Pressure : / mmHG Vent. Rate : 064 BPM Atrial Rate : 064 BPM P-R Int : 204 ms QRS Dur : 088 ms QT Int : 458 ms P-R-T Axes : 017 009 046 degrees QTc Int : 472 ms Normal sinus rhythm Normal ECG When compared with ECG of 24-NOV-2021 06:13, (unconfirmed) No significant change was found Confirmed by Richard Lazar ([id number] on 11/24/2021 12:14:32 PM Referred By: REFERRED SELF Confirmed By:Julien Lazar
--- NOTE | 2021-11-24 12:40 | Discharge Summary ---
Date of Service November 24, 2021 Admission HPI Per Admitting Provider History obtained from patient and records. Medical history significant for paroxysmal atrial fibrillation, hypertension, hyperlipidemia, pulmonary sarcoidosis as per records, DM2 on oral medications, history of alcoholic cirrhosis, PTSD, HANNA (currently not using CPAP ), past alcohol abuse, chronic thrombocytopenia Last confinement June 2019 for chest pain, new onset A. fib status post spontaneous conversion. Patient discharged on sotalol. Not a good candidate for anticoagulation due to history of epistaxis with antiplatelet Rx as per records. 1 month history of substernal/epigastric pain going to the left arm and jaw, intermittent almost daily symptoms, with some shortness of breath/diaphoresis. Occurs even at rest. Episodic palpitations similar to A. fib episodes. Episodic lightheadedness symptoms as per patient. Patient compliant with home medications. Admits to some personal stressors. Patient rapid atrial flutter on arrival at the ER, heart rate in the 110s. Subsequent bradycardia, cardiac rate 40s with spontaneous resolution without intervention. Patient felt lightheaded during episode. Chest discomfort somewhat improved with Nitropaste administration at the ER followed by headache symptoms. Aspirin administered at the ER. Medical History as above Surgical History : Sinus surgery Family History : Heart disease, DM Personal/Social history : Non-smoker, past alcohol abuse, lives by himself Admission Exam Per Admitting Provider GENERAL: Comfortable, obese, anxious, no respiratory distress SKIN: Normal color, warm HEENT: [place] palpebral conjunctivae, no ptosis, dry buccal mucosa NECK : Supple, short neck, no tenderness CHEST : CTA, no tenderness HEART : RRR, no obvious murmurs ABDOMEN: Some distention, nontender EXTREMITIES : No LE swelling/tenderness, no other conspicuous deformities noted NEUROLOGIC : Coherent, no facial asymmetry, no other gross focality Principal Diagnosis Atrial flutter Chest pain Discharge Exam Constitutional + well hydrated and + obese; no acute distress Eyes PERRL, conjunctivae normal, anicteric sclerae ENMT external ear and nose normal, oropharynx normal Respiratory normal respiratory effort, lungs clear to auscultation Cardiovascular RRR, no murmur, no edema Gastrointestinal (Abdomen) normal bowel sounds, soft, nontender, no hepatosplenomegaly Musculoskeletal no cyanosis or clubbing, extremities motor strength 5/5 Neurologic PERRL, EOMI, accommodation nl, no face palsy, no dysarthria Psychiatric A+Ox3, euthymic affect Discharge Data Allergies Allergy/AdvReac Type Severity Reaction Status Date / Time Iodinated Contrast Media Allergy Intermediate Hives Unverified 11/21/21 20:59 gabapentin Allergy Unknown Verified 11/21/21 20:59 shellfish derived AdvReac Severe "SEVERE Verified 11/21/21 20:59 VOMITING" acetaminophen [From Tylenol] AdvReac Intermediate nose bleeds Unverified 11/21/21 20:59 ibuprofen AdvReac Intermediate nose bleeds Unverified 11/21/21 20:59 aspirin AdvReac Mild EPISTAXIS Verified 11/21/21 20:59 lisinopril AdvReac Cough Verified 11/21/21 20:59 Consultations 11/21/21 23:23 Consult Cardiology Routine Hospital Course (1) Atrial flutter, paroxysmal: Atrial flutter Acute chest pain Has h/o Afib on sotalol 80mg bid Was not on anticoagulation due to h/o recurrent epistaxis and ?cirrhosis at the time Presented with chest pain with shortness of breath as well as palpitations. Reported intermittent similar symptoms over the past few months but worse on presentation Reported pain was radiating to arm and jaw Found to be in atrial flutter. Currently rate controlled and chest pain free In sinus rhythm Was evaluated by Window Repairer and had increased Sotalol to 120mg bid Patient was observed in the hospital with serial EKG. Was initially put on heparin drip, this was discontinued due to worsening thrombocytopenia TTE showed EF of 60-65. Mild AR, Mild TR. Mild conc LVH Window Repairer recommend starting aspirin 81mg instead. No anticoagulation DDimer was elevated Patient reported history of allergy to contrast with anaphylaxis VQ scan showed normal perfusion scan Hypertension Stable Continue losartan Hyperlipidemia Continue statin DM2 on oral medications Last Hemoglobin A1c of 6.24 June 2020 Continue home antidiabetics HANNA (currently not using CPAP ) Chronic thrombocytopenia hx pulmonary sarcoidosis as per records, stable Total Time Total Time Spent Total Time Spent (In Minutes): 40 Total Time Includes: Examination of the Patient, Discharge Planning, Medication Reconciliation and Communication With Other Providers Discharge Plan Discharge Items Patient Disposition: Home - Self-Care Reason For Visit: Chest pain Discharge Diagnosis: Atrial flutter Chest pain Activity: Resume your previous activity Non-emergency contact: Primary Care Provider and Window Repairer Call non-emergency contact if: you have any medication questions and your symptoms worsen Follow-up/Referrals: Pk Loya MD [Primary Care Provider] - (Date & Time 11/30/2021 9:40 AM Provider Pk Loya MD [facility] ) Diet: Carb Consistent or DM2 and Heart Healthy Addtl Attending Provider Instructions: Mr Oro. You came to the hospital with chest pain. You were evaluated and found to have Atrial flutter. You were evaluated by the Window Repairer. Your sotalol dose was increased and you were monitored in the hospital for this. Please ensure follow up with your Primary Doctor and Window Repairer. It was a pleasure taking care of you. Pending Studies at Discharge: No Stand-Alone Forms: [facility], Smoking Cessation Medications and DC Order Prescriptions: New aspirin 81 mg Tablet,Delayed Release (Dr/Ec) 81 mg PO QAM Qty: 60 RF: 0 Continued multivitamin Tablet 1 tab PO HS RF: 0 potassium chloride [K-Tab] 10 mEq Tablet Extended Release 20 meq PO BID RF: 0 atorvastatin 80 mg Tablet 40 mg PO DAILY RF: 0 chlorthalidone 25 mg Tablet 25 mg PO DAILY RF: 0 naproxen sodium 220 mg Tablet 220 mg PO DAILY PRN (Reason: Pain) RF: 0 losartan 100 mg Tablet 100 mg PO DAILY RF: 0 dicyclomine 10 mg Capsule 10 mg PO TID PRN (Reason: Diarrhea) RF: 0 glipizide 5 mg Tablet 2.5 mg PO BID RF: 0 metformin 1,000 mg Tablet Extended Release 24hr 1,000 mg PO QAM RF: 0 metformin 1,000 mg Tablet Extended Release 24hr 500 mg PO QPM RF: 0 Jardiance 25 mg Tablet 12.5 mg PO DAILY RF: 0 Changed sotalol 80 mg Tablet 120 mg PO BID 60 Days Qty: 180 RF: 0 Discharge Orders: Discharge Order (Routine); Ordered 11/24/21 Ordered By: Agnes Sheets Admission Data Admit Date/Time: 11/21/21 21:48 Attending Provider: Agnes Sheets I. Admit Provider: Vishal Peter Primary Care Provider: Pk Loya Other Providers: Vipin Rai ; Rojas Rocha ; George Tristan ; Kiet Worthy ; Sang Guevara ; Jonathan Iyer ; Olya Hay ; Arabella Morelos ; Destinee Johnston ; Alexsander Pino ; Vishal Peter. ; [facility] Other Interventions: Discharge Summary Assessment (RN) Last Done: 11/24/21 14:42
[2021-11-26 01:22] LABS: Plt Ab, Heparin Induced Negative (Negative)
== END 2021-11-24 15:05 | disposition home or self-care (01) | DRG 310 ==
LOC: ED 17:55 → 2E 21:48 → SUATTDRO 21:48 → 2E 22:51